=== PATIENT | female | born 1950 | race Caucasian/White ===

== ENCOUNTER 2017-08-08 10:50 | Inpatient (IN) | payer MEDICARE, BC ==
[2017-08-08] MEDS ORDERED: Cefepime(*) 2 GM in NS 0.9% 50 ML* 50 ML IVPB ONE (11:34)
[2017-08-08] MEDS ORDERED: NS 0.9% 1000 ML*IV.FLUID IV ONE (11:34)
[2017-08-08] MEDS ORDERED: Acetaminophen TAB* 325 MG PO ONE (12:19)
--- NOTE | 2017-08-08 12:19 | ED ---
Skin Complaint - HPI Summary HPI Summary: 67 female [facility] with complaints of "buttock pain" that began ~4 days ago and has since worsened. Patient states she had "the stomach flu" about 1 week ago and had diarrhea/vomiting however it has since resolved. She has been "stuck in bed" over the past couple of days because she was in so much pain from the infection on her buttock. Denies fever and recent vomiting. Admits to drainage from her buttock. States she has had decreased appetite however has been trying to drink fluids, being stuck in bed without help has made it difficult for her. States she is a dialysis patient and does it at home daily. Since she has not been feeling good she has decreased urinary output and is having lower abdominal pressure from not urinating in 2 days. States she also has not had a bowel movement in a few days. Denies any abdominal pain after urinating. No chest pain, SOB, headache. Admits to generalized weakness. Is a Type II diabetic and states she has been controlling it with diet, has never taken medications but was last told at PCP that she may need to start soon. HTN, no other cardiac disease. Has no taken any medication for her symptoms. Denies prolonged bed rest prior to patient's buttock pain and has never had a rash like this in the past. Denies known MRSA history and denies rash elsewhere. - History of Current Complaint Chief Complaint: EDRashSkinAbscess Time Seen by Provider: 08/08/17 11:28 Stated Complaint: PAIN NEAR WOUND SITE Hx Obtained From: Patient Onset/Duration: Started Days Ago, Still Present, Worse Since Skin Exposure Onset/Duration: Days Ago Timing: Constant, Lasting Days Onset Severity: Moderate Current Severity: Severe Pain Intensity: 9 Pain Scale Used: 0-10 Numeric Skin Location: Other: - buttock, left Character: Swelling, Redness, Raised, Painful Aggravating Symptom(s): Touch, Other: - movement Alleviating Symptom(s): Nothing Associated Signs & Symptoms: Nausea, Vomiting - resolved, Weakness, Rash, Drainage - Additional Pertinent History Primary Care Physician: [id number] - Allergy/Home Medications Allergies/Adverse Reactions: Allergies Allergy/AdvReac Type Severity Reaction Status Date / Time latex Allergy Rash Verified 08/08/17 12:29 Home Medications: Home Medications Acetaminophen [Acetaminophen Extra Strength] 500 - 1,000 mg PO DAILY PRN [History Confirmed 08/08/17] Carvedilol TAB* [Coreg TAB*] 6.25 mg PO BID 08/08/17 [History Confirmed 08/08/17 ] Cephalexin CAP* [Keflex CAP*] 1,000 mg PO Q12H PRN 08/08/17 [History Confirmed 08/08/17] Ciprofloxacin TAB* [Cipro 750 MG Tab*] 750 mg PO SEE INSTRUCTIONS PRN 08/08/17 [ History Confirmed 08/08/17] Furosemide TAB* [Lasix TAB*] 40 mg PO DAILY 08/08/17 [History Confirmed 08/08/17 ] Lanthanum CHEW TAB* [Fosrenol CHEW TAB*] 1,000 mg PO TID WITH MEALS 08/08/17 [ History Confirmed 08/08/17] Mupirocin 2% OINT* [Bactroban 2 % Oint*] 1 applic TOPICAL DAILY 08/08/17 [ History Confirmed 08/08/17] Patiromer Calcium Sorbitex [Veltassa] 8.4 gm PO DAILY PRN 08/08/17 [History Confirmed 08/08/17] Potassium Chlor TAB* [Klor Con ER TAB*] 20 meq PO DAILY 08/08/17 [History Confirmed 08/08/17] PMH/Surg Hx/FS Hx/Imm Hx Endocrine/Hematology History: Reports: Hx Diabetes - type II diet contolled , Hx Anemia - HGB AT 11 CURRENTLY Denies: Hx Sickle Cell Disease Cardiovascular History: Reports: Hx Hypertension Denies: Hx Valvular Heart Disease, Other Cardiovascular Problems/Disorders Respiratory History: Denies: Other Respiratory Problems/Disorders GI History: Reports: Hx Gastroesophageal Reflux Disease - ON MEDS,CONTROLLED Denies: Other GI Disorders History: Reports: Hx Chronic Renal Failure, Hx Dialysis Denies: Other Problems/Disorders Musculoskeletal History: Reports: Hx Arthritis - KNEES BILAT Denies: Other Musculoskeletal History Sensory History: Reports: Hx Cataracts - BILAT EYES, Hx Contacts or Glasses - GLASSES Denies: Hx Hearing Aid Opthamlomology History: Reports: Hx Cataracts - BILAT EYES, Hx Contacts or Glasses - GLASSES Neurological History: Denies: Other Neuro Impairments/Disorders Psychiatric History: Reports: Hx Anxiety, Hx Depression - R/T ESRD - Surgical History Surgery Procedure, Year, and Place: RT KNEE SCOPE, AGE 35, [facility]. FORMATION [facility] - [facility] [place] Hx Anesthesia Reactions: No - Immunization History Immunizations Up to Date: Yes Infectious Disease History: No Infectious Disease History: Denies: Hx of Known/Suspected MRSA, Traveled Outside the [place] in Last 30 Days - Family History Known Family History: Positive: Hypertension - Social History Alcohol Use: None Alcohol Amount: 2 BEERS/ YEAR Substance Use Type: Reports: None Smoking Status (MU): Never Smoked Tobacco Review of Systems Positive: Chills, Fatigue Cardiovascular: Negative Respiratory: Negative Positive: Vomiting - resolved , Diarrhea - resolved, Nausea Positive: see HPI, other - decreased frequency/obstructed Positive: Rash Positive: Weakness All Other Systems Reviewed And Are Negative: Yes Physical Exam Triage Information Reviewed: Yes Vital Signs On Initial Exam: Initial Vitals Temp Pulse Resp BP Pulse Ox 100 F 60 17 115/58 95 08/08/17 11:15 08/08/17 11:15 08/08/17 11:15 08/08/17 11:15 08/08/17 11:15 Vital Signs Reviewed: Yes Appearance: Positive: No Pain Distress, Well-Nourished, Ill-Appearing Skin: Positive: Warm, Skin Color Reflects Adequate Perfusion, Dry, Jaundiced, Pale, Erythema @ - decubitus ulcer x 2 noted on left buttock with surrounding erythematous, indurated, firm and non blanchable cellulitis. necrotic tissue in center of lower ulcer area measuring ~ 4cm. purulent scant amount of drainage, exquistely tender to touch, Other - decreased skin turgor, dry mucous membranes. Negative: Cold, Numb, Cyanosis @ Head/Face: Positive: Normal Head/Face Inspection ENT: Positive: Hearing grossly normal, Pharynx normal, TMs normal Neck: Positive: Supple, Nontender Respiratory/Lung Sounds: Positive: Clear to Auscultation, Breath Sounds Present , Rhonchi. Negative: Rales, Wheezes Cardiovascular: Positive: Normal, RRR, Pulses are Symmetrical in both Upper and Lower Extremities. Negative: Murmur, Rub Abdomen Description: Positive: Nontender - after urinated, prior to had suprapubic "pressure" and distended to palpation. Negative: CVA Tenderness (R) , CVA Tenderness (L), Guarding Bowel Sounds: Positive: Present Musculoskeletal: Positive: Normal, Strength/ROM Intact - diminshed strength however patient had to stay in "bermudez" position on side due to decubitus ulcer pain Neurological: Positive: Normal, Sensory/Motor Intact, Alert, Oriented to Person Place, Time, [place] Bundle Intact Distally - [place] Coma Scale Best Eye Response: 4 - Spontaneous Best Motor Response: 6 - Obeys Commands Best Verbal Response: 5 - Oriented Coma Scale Total: 15 Diagnostics - Vital Signs Vital Signs Temp Pulse Resp BP Pulse Ox 08/08/17 11:15 100 F 60 17 115/58 95 - Laboratory Result Diagrams: 08/08/17 12:37 08/08/17 12:37 Lab Statement: Any lab studies that have been ordered have been reviewed, and results considered in the medical decision making process. Re-Evaluation - Re-Evaluation First Eval Re-Evaluation Time: 12:30 Change: Unchanged - still awaiting IV access Second Eval Re-Evaluation Time: 13:00 Change: Unchanged - IV access obtained and labs obtained, meds and fluids started as BP and vitals were dropping Third Eval Re-Evaluation Time: 13:30 Change: Unchanged - BP responding to fluids, updated on lab results and current plan of action, patient's only complaint buttock pain, will wait for pressure to improve before pain meds. updated obtianing EKG due to sepsis admission and hypokalemia Fourth Eval Re-Evaluation Time: 14:00 Change: Worse - EKG shows inferior STEMI on EKG with no prvious history and multiple EKG changes from previous 10 years ago, Dr Dixon, Dr Webster and Dr Fischer / Dr Paulino consulted to take over care Fifth Eval Re-Evaluation Time: 14:30 Change: Worse - patient updated on plan and is aware of her conditions, has spoke to hospitalists and specialists Course/Dx - Course Course Of Treatment: patient was seen promptly upon arrival as concern for sepsis and sepsis protocol initiated as became hypotensive, low grade fever, signs of obvious infection, diabetic, decreased urinary output/obstruction. given tylenol for fever. labs, urinalysis, fluids and antibiotics ordered. nursing staff had trouble with initiating IV access. After 2 hours patient's IV access was obtained. Hospitalist, J Carlos NAJERA, was notified prior to patients lab results due to vitals worsening and PE of decubitus ulcer/generalized illness. Began on cefepime and vanco. given potassium orally. Patient had several abnormal labs including elevated WBC with left shift, hyperglycemia, dehydration , anemia, hypokalemia and urosepsis. CT abd/pelvis obtained to rule out necrotizing faciitis. Wound culture not obtained due to other critical finidngs during visit. Hospitalist was consulted again at 12:00pm, Dr Dixon and J Carlos NAJERA. EKG obtained due to hypokalemia and sepsis and showed significant ST changes inferior leads with several ischemic changes. Patient denied any chest pain or SOB without history. Consulted Dr Dixon, Dr Webster, Dr Fischer and Dr Paulino. Patien 'ts care was transferred to hospitalist and specialist team. Patient was later cath'd as vitals responded and improved after fluids however EKG did not improve. ICU admit. - Differential Diagnoses - Skin Complaint Differential Diagnoses: Abscess, Cellulitis, Other - sepsis, uro sepsis, UTI, STEMI, hyperglycemia, dehydration, hypokalemia - Diagnoses Provider Diagnoses: Hypokalemia, Sepsis, UTI (urinary tract infection), Decubitus ulcer, Cellulitis and abscess of buttock, Hyperglycemia, STEMI (ST elevation myocardial infarction), Dehydration - Physician Notifications Discussed Care Of Patient With: J Carlos Soliz SENIOR GEOLOGIST, Dr Webster, Dr Paulino, Dr Fischer Time Discussed With Above Provider: 12:00 Instructed by Provider To: Admit As Inpatient - Critical Care Time Critical Care Time: 30-74 min Discharge - Discharge Plan Condition: Stable Disposition: ADMITTED TO [facility]
[2017-08-08] MEDS ORDERED: Vancomycin(*) 1,000 MG VIAL IVPB SCH (13:00)
[2017-08-08 13:21] LABS: Hematocrit 33 % (35-47); Hemoglobin 10.9 g/dl (12.0-16.0); Mean Corpuscular HGB Conc 33 g/dl (31-36); Mean Corpuscular Hemoglobin 34 pg (27-31); Mean Corpuscular Volume 102 fL (80-97); Mean Platelet Volume 9 um3 (7.4-10.4); Platelet Count 543 10^3/ul (150-450); Red Blood Count 3.21 10^6/ul (4.0-5.4); Red Cell Distribution Width 15 % (10.5-15)
[2017-08-08 13:22] LABS: INR 1.17 (0.77-1.02)
[2017-08-08 13:23] LABS: EGFR Non-African American 6.1 (>60)
[2017-08-08 13:25] LABS: Urine Appearance Cloudy; Urine Blood 1+ (Negative); Urine Color Yellow; Urine Ketones Negative (Negative); Urine Protein 2+(100 mg/dL) (Negative); Urine Specific Gravity 1.037 (1.010-1.030); Urine Urobilinogen Negative (Negative)
[2017-08-08] MEDS ORDERED: Vancomycin(*) 1,250 MG IV x ONCE IVPB ONE ×2 (13:30)
[2017-08-08] MEDS ORDERED: NS 0.9% 1000 ML* 1,000 ML IV ONE (13:50)
[2017-08-08] MEDS ORDERED: Potassium Chlor TAB* 20 MEQ TAB.ER PO ONE (13:50)
[2017-08-08] MEDS ORDERED: Clindamycin 600 MG IVPREMIX(* 600 MG/50 ML SDV IV ONE ×2 (14:02→15:00)
[2017-08-08 14:04] LABS: ABS Basophils 0.1 10^3/ul (0-0.2); ABS Eosinophils 0.1 10^3/ul (0-0.6); ABS Lymphocytes 1.3 10^3/ul (1.0-4.8); ABS Monocytes 1.3 10^3/ul (0-0.8); ABS Neutrophils 20.2 10^3/ul (1.5-7.7); ABS Nucleated RBC 0 10^3/ul; Eosinophil % 0.4 % (0-6); Lymphocyte % 5.8 % (25-47); Nucleated Red Blood Cells % 0
[2017-08-08] MEDS ORDERED: Dextrose 50% Syringe 50 ML* 25 GM/50 ML SYRINGE IV PUSH PRN (15:56)
[2017-08-08] MEDS ORDERED: Cefepime 2 GM in Dextrose(*) 2 GM/50 ML BAG IV SCH (16:00)
[2017-08-08] MEDS ORDERED: Aspirin Low Dose CHEW TAB* 81 MG PO ONE (16:00)
--- NOTE | 2017-08-08 16:09 | RAD ---
INDICATION: Sepsis. Abscess. Free air. COMPARISON: CT abdomen pelvis April 02, 2012 TECHNIQUE: Noncontrast axial source images were acquired from the level hemidiaphragms to the symphysis pubis. As the examination was ordered without oral or intravenous contrast. There are inherent limitations in evaluating both the solid viscera and bowel. Lung bases: The lung bases are clear. Liver: There is hepatomegaly with hepatic steatosis. Noncontrast imaging shows no evidence of a hepatic mass or ductal dilatation. Gallbladder: There are no calcified gallstones. There is no evidence of wall thickening or pericholecystic fluid.. Spleen: The spleen is normal in size. The noncontrast CT appearance is normal. Pancreas: Noncontrast imaging shows no pancreatic mass or ductal dilitation. Adrenal glands: No masses are identified. Kidneys/Bladder: There is no evidence of nephrolithiasis or CT evidence of hydronephrosis. Noncontrast imaging shows no evidence of a renal mass. Both kidneys are mildly atrophic The bladder is unremarkable.. Adenopathy: There is no evidence of intraperitoneal or retroperitoneal adenopathy. Evaluation is limited without oral contrast. Fluid collections: There is moderate free fluid which may be related to peritoneal dialysis. There is a small amount of mild diffuse mesenteric edema Vessels: There are atherosclerotic changes of the aorta and iliac vessels. There is no focal aneurysm. The IVC appears normal Pelvic organs: The uterus and adnexa appear normal GI tract: Evaluation of the bowel is limited without oral contrast. The upper GI tract is also normal. There is scattered diverticula throughout the colon Soft tissues: No soft tissue abnormalities of the extraperitoneal abdomen or pelvis are identified. Osseous structures: There are no acute osseous findings. Other: There is diffuse increased density in the subcutaneous fat of the right gluteal region consistent with diffuse cellulitic change/phlegmonous change. The largest coalescent area measures approximately 4.0 x 4.7 cm. These are not currently organized into a unilocular area with central liquefaction. There is no evidence of soft tissue emphysema. IMPRESSION: 1. Limited noncontrast imaging was ordered. 2. Hepatomegaly with hepatic steatosis. 3. Free fluid likely related to peritoneal dialysate. 4. Scattered diverticula. No convincing CT evidence of acute diverticulitis. 5. Cellulitic/phlegmonous change right gluteal region.
[2017-08-08] MEDS ORDERED: fentaNYL* 50 MCG/ML 2 ML VIAL (100 MCG VIAL) ONE (16:21)
[2017-08-08] MEDS ORDERED: Heparin(*) 1000 UNIT/ML 10 ML VIAL CATH LAB IV ONE (16:21)
[2017-08-08] MEDS ORDERED: nitroGLYCERIN DRIP* 25,000 MCG/250 ML BTL ONE (16:21)
[2017-08-08] MEDS ORDERED: Heparin 2 UNITS/ML IVPREMIX* 2,000 ML IV ONE (16:21)
[2017-08-08] MEDS ORDERED: Midazolam* 1 MG/ML 10 ML VIAL (10 MG) ONE (16:21)
[2017-08-08] MEDS ORDERED: Iodixanol* (CONTRAST) 320 MG/ML 100 ML SDV ONE (16:22)
[2017-08-08] MEDS ORDERED: Lidocaine 1% INJ* 10 MG/ML 30 ML SDV ONE (16:22)
[2017-08-08] MEDS ORDERED: Zosyn per Pharmacy* NOTE FOLLOW UP SCH (17:00)
--- NOTE | 2017-08-08 17:24 | CONSULT ---
Consult Consult: Ms. English presented to the ED with a concern for sepsis from a bad decubitus ulcer and surrounding cellulitis. She dropped her pressure a bit before IV could be established (she is on a beta eben) but responded well to IV NS. As she was being admitted, an ECG was obtained which showed an inferior STEMI with reciprocal changes. She denied any chest pain or SOB. She is diet controlled diabetic and has never been on meds or diagnosed with any neuropathy. I spoke with Dr. Fischer who reviewed the ECG and recommended consulting Dr. Paulino. Sr. Paulino reviewed the ECG and came to the department to evaluate Ms. English. He decided to take her to the technical laboratory asst. She had responded well to the fluids and her ECG had not improved much. Her diagnoses are STEMI, Sepsis, and Cellulitis
[2017-08-08] MEDS ORDERED: Eptifibatide IV (Load dose)(*) 2 MG/ML 10 ml VIAL ONE (17:27)
[2017-08-08] MEDS ORDERED: Eptifibatide (*) 0 ML ONE (17:27)
[2017-08-08] MEDS ORDERED: Ticagrelor* 90 MG TAB PO ONE (17:32)
[2017-08-08] MEDS ORDERED: Nitroglycerin TAB 0.4 MG* 0.4 MG TAB SL PRN (17:57)
[2017-08-08] MEDS ORDERED: Insulin LISPRO* 1 UNITS UNIT SUBCUT SCH (18:00)
[2017-08-08] MEDS ORDERED: Vancomycin - DIALYSIS DOSING* NOTE FOLLOW UP SCH (18:00)
--- NOTE | 2017-08-08 18:41 | CONSULT ---
Consult Consult: Consultation Note -- Critical Care Requesting Physician: J Carlos Evans NP Reason for consult: septic shock, STEMI inferior wall, ESRD Limitations in history/physical: none Date of consult: 08/08/2017 HPI: 67y F w/pmhx of DM, Anemia, HTN, GERD, ESRD on PD; comes to ER with friend for eval of right buttock wound. Patient initially had nausea/vomiting approximately 11 days back, which got better, suspected GI illness. Then 9 days back her buttock started to hurt and a small lesion appears, no trauma noted at site. She subsequently developed a second small nodular lesion next to it. Diarrhea occurred 3-4x the following day. No fever/chills. No chest pain/sob. Poor po intake during episodes of nausea/vom and diarrhea. There was drainage for the past week from the buttock lesions and increasing pain and tenderness. She comes to the ER for eval of buttocks. In ER, she was being worked up for wound. EKG done also demonstrating acute ST elevations inferiorly with new inferior wall motion defects on stat ECHO. No sob/chest pain/dizziness during this evaluation. In ER, tmax 100, BP 81/30 lowest, started on sepsis protocol and given 2 L bolus NS. BP improved to low 100s then. Given cefepime/clindamycin/vanco for buttock infection. CT abd/pelvis demonstrated right gluteal area cellulitus/phelgmon, but no necrotizing fasciitis or abscess collection. Cardiology called for STEMI changes, ECHO and repeat EKG done as above. Decision to take to cardiac cathode ray tube assembler emergently. She had a critical mid-RCA lesion with PCI x1 to midRCA. Post cathode ray tube assembler she is in ICU, awake/alert, feeling better. Last BP 90s now, MAPS low to mid 60s, HR 80-90s sinus rhythm. She feels better, no sob/cp. Pain better in buttocks. Total of 2.5L NS in ER, and additional 500cc NC in cathode ray tube assembler. ROS: negative except for pertinent positives mentioned above. PMHx: DM (diet controlled), Anemia, HTN, GERD, ESRD on PD PSHx: right knee scope, AV fistula Family History: HTN Social History: Alcohol-minimal, Smoking-none, Drug use-none; Job- retired nurse Allergies: NKDA Home Medications: Folic Acid/Vit B Complex and C [Nephro-Coco Tablet] 1 tab PO DAILY 10/23/15 [ History Confirmed 08/08/17] Aspirin EC Low Dose* [Ecotrin EC Low Dose 81 MG*] 81 mg PO DAILY 02/20/16 [ History Confirmed 08/08/17] Omeprazole CAP* [Prilosec CAP* 20 MG] 20 mg PO BID 02/20/16 [History Confirmed 08/08/17] Sevelamer TAB* [Renvela TAB*] 1,600 mg PO TID WITH MEALS 02/20/16 [History Confirmed 08/08/17] Acetaminophen [Acetaminophen Extra Strength] 500 - 1,000 mg PO DAILY PRN [History Confirmed 08/08/17] Carvedilol TAB* [Coreg TAB*] 6.25 mg PO BID 08/08/17 [History Confirmed 08/08/17 ] Cephalexin CAP* [Keflex CAP*] 1,000 mg PO Q12H PRN 08/08/17 [History Confirmed 08/08/17] Ciprofloxacin TAB* [Cipro 750 MG Tab*] 750 mg PO SEE INSTRUCTIONS PRN 08/08/17 [ History Confirmed 08/08/17] Furosemide TAB* [Lasix TAB*] 40 mg PO DAILY 08/08/17 [History Confirmed 08/08/17 ] Lanthanum CHEW TAB* [Fosrenol CHEW TAB*] 1,000 mg PO TID WITH MEALS 08/08/17 [ History Confirmed 08/08/17] Mupirocin 2% OINT* [Bactroban 2 % Oint*] 1 applic TOPICAL DAILY 08/08/17 [ History Confirmed 08/08/17] Patiromer Calcium Sorbitex [Veltassa] 8.4 gm PO DAILY PRN 08/08/17 [History Confirmed 08/08/17] Potassium Chlor TAB* [Klor Con ER TAB*] 20 meq PO DAILY 08/08/17 [History Confirmed 08/08/17] Tele: NSR Vitals: Vital Signs Temp 97.5 F 08/08/17 18:28 Pulse 82 08/08/17 18:28 Resp 25 08/08/17 18:28 BP 85/48 08/08/17 18:28 Pulse Ox 94 08/08/17 18:28 Intake & Output 08/07/17 08/08/17 08/08/17 18:59 06:59 18:59 Intake Total 2350 Balance 2350 Weight 192 lb Intake: IV Fluids 2350 O2/Vent: RA Infusions: heplock Current Medications: Acetaminophen (Tylenol Tab*) 650 mg PO Q4H PRN PRN Reason: FEVER/PAIN Aspirin (Aspirin Ec Low Dose*) 81 mg PO DAILY [facility] Aspirin (Aspirin Low Dose Tab*) 81 mg PO DAILY [facility] Atorvastatin Calcium (Lipitor*) 80 mg PO 1700 [facility] [place] Dextrose (D50w Syringe 50 Ml*) 12.5 gm IV PUSH .FOR FS < 60 - SS PRN PRN Reason: FS < 60 Heparin Sodium (Porcine) (Heparin Vial(*)) 5,000 units SUBCUT Q8HR [facility] [place] Sodium Chloride (Ns 0.9% 1000 Ml*) 1,000 mls @ 75 mls/hr IV PER RATE [facility] [place] Vancomycin HCl 1,000 mg/ (Sodium Chloride) 250 mls @ 166.667 mls/hr IVPB DAILY PRN; Protocol PRN Reason: RANDOM LEVEL <20 Piperacillin Sod/Tazobactam (Sod 3.375 gm/ Sodium Chloride) 100 mls @ 200 mls/ hr IVPB ONCE ONE Stop: 08/09/17 08:29 Insulin Human Lispro (Humalog*) 0 units SUBCUT Q6HR [facility] PRN Reason: Protocol Lanthanum Carbonate (Fosrenol Chew Tab*) 1,000 mg PO TID WITH MEALS [facility] Nitroglycerin (Nitroglycerin Tab 0.4 Mg*) 0.4 mg SL Q5M PRN PRN Reason: ANGINA Omeprazole (Prilosec Cap*) 20 mg PO BID [facility] [place] Ondansetron HCl (Zofran Inj*) 4 mg IV Q6H PRN PRN Reason: NAUSEA Pharmacy Consult (Zosyn Per Pharmacy*) 1 note FOLLOW UP .ZOSYN PER PHARMACY [facility] Pharmacy Consult (Vancomycin - Dialysis Dosing*) 1 note FOLLOW UP . [facility] Pharmacy Consult (Vancomycin Random Level*) 1 note FOLLOW UP DAILY@0600 [facility] Potassium Chloride (Klor Con Er Tab*) 20 meq PO DAILY [facility] Sevelamer Carbonate (Renvela Tab*) 1,600 mg PO TID WITH MEALS [facility] Ticagrelor (Brilinta*) 90 mg PO BID [facility] Physical Exam: General: awake, alert, no distress, no diaphoresis Head: normocephalic, atraumatic HEENT: no pallor, no icterus, moist mucous membranes Neck: soft, supple, no jvd, no stridor CVS: normal rate, regular, no murmur Resp: bilateral air entry, no rhales, no wheeze, no rhonchi, no acc muscle use Abdomen: soft, nontender, nondistended, BS+; left abd PD catheter+; Right buttock erythematous, indurated and tense, 1 escar site not open, 2nd open wound with active drainage of pus+, tender+ Ext: pulses+, warm, no edema Skin: intact, no breakdown, no dryness Neuro: awake, alert, orientedx3, moving all extremities, no gross focal deficit Labs: Laboratory Results - last 24 hr 08/08/17 08/08/17 08/08/17 12:37 12:37 12:37 WBC 23.0 H RBC 3.21 L Hgb 10.9 L Hct 33 L MCV 102 H MCH 34 H MCHC 33 RDW 15 Plt Count 543 H MPV 9 Neut % (Auto) 87.9 H Lymph % (Auto) 5.8 L [place] % (Auto) 5.7 Eos % (Auto) 0.4 Baso % (Auto) 0.2 Absolute Neuts (auto) 20.2 H Absolute Lymphs (auto) 1.3 Absolute Monos (auto) 1.3 H Absolute Eos (auto) 0.1 Absolute Basos (auto) 0.1 Absolute Nucleated RBC 0 Nucleated RBC % 0 INR (Anticoag Therapy) 1.17 H APTT 30.3 Sodium 126 L Potassium 2.9 L Chloride 86 L Carbon Dioxide 23 Anion Gap 17 H BUN 54 H Creatinine 6.80 H Est GFR ( Amer) 7.8 Est GFR (Non-Af Amer) 6.1 BUN/Creatinine Ratio 7.9 L Glucose 362 H Lactic Acid Calcium 9.1 Total Bilirubin 0.50 AST 22 ALT 10 Alkaline Phosphatase 167 H Troponin I 0.12 H* Total Protein 6.9 Albumin 2.5 L Globulin 4.4 H Albumin/Globulin Ratio 0.6 L Triglycerides 245 Cholesterol 101 Urine Color Urine Appearance Urine pH Ur Specific [place] Urine Protein Urine Ketones Urine Blood Urine Nitrate Urine Bilirubin Urine Urobilinogen Ur Leukocyte Esterase Urine WBC (Auto) Urine RBC (Auto) Ur Squamous Epith Cells Urine Bacteria Urine Glucose 08/08/17 08/08/1708/08/18 12:37 12:45 15:54 WBC RBC Hgb Hct MCV MCH MCHC RDW Plt Count MPV Neut % (Auto) Lymph % (Auto) [place] % (Auto) Eos % (Auto) Baso % (Auto) Absolute Neuts (auto) Absolute Lymphs (auto) Absolute Monos (auto) Absolute Eos (auto) Absolute Basos (auto) Absolute Nucleated RBC Nucleated RBC % INR (Anticoag Therapy) APTT Sodium Potassium Chloride Carbon Dioxide Anion Gap BUN Creatinine Est GFR ( Amer) Est GFR (Non-Af Amer) BUN/Creatinine Ratio Glucose Lactic Acid 4.9 H* 2.8 H* Calcium Total Bilirubin AST ALT Alkaline Phosphatase Troponin I Total Protein Albumin Globulin Albumin/Globulin Ratio Triglycerides Cholesterol Urine Color Yellow Urine Appearance Cloudy Urine pH 5.0 Ur Specific [place] 1.037 H Urine Protein 2+(100 mg/dl) H Urine Ketones Negative Urine Blood 1+ H Urine Nitrate Negative Urine Bilirubin Negative Urine Urobilinogen Negative Ur Leukocyte Esterase 2+ H Urine WBC (Auto) 3+(>20/hpf) H Urine RBC (Auto) 3+(>10/hpf) H Ur Squamous Epith Cells Present H Urine Bacteria Absent Urine Glucose 3+(>=500 mg/dl) H 08/08/17 15:54 WBC RBC Hgb Hct MCV MCH MCHC RDW Plt Count MPV Neut % (Auto) Lymph % (Auto) [place] % (Auto) Eos % (Auto) Baso % (Auto) Absolute Neuts (auto) Absolute Lymphs (auto) Absolute Monos (auto) Absolute Eos (auto) Absolute Basos (auto) Absolute Nucleated RBC Nucleated RBC % INR (Anticoag Therapy) APTT Sodium Potassium Chloride Carbon Dioxide Anion Gap BUN Creatinine Est GFR ( Amer) Est GFR (Non-Af Amer) BUN/Creatinine Ratio Glucose Lactic Acid Calcium Total Bilirubin AST ALT Alkaline Phosphatase Troponin I 0.10 H* Total Protein Albumin Globulin Albumin/Globulin Ratio Triglycerides Cholesterol Urine Color Urine Appearance Urine pH Ur Specific [place] Urine Protein Urine Ketones Urine Blood Urine Nitrate Urine Bilirubin Urine Urobilinogen Ur Leukocyte Esterase Urine WBC (Auto) Urine RBC (Auto) Ur Squamous Epith Cells Urine Bacteria Urine Glucose Imaging: CT abd/pelvis 08/08 right buttock cellulitus/phelgmon+ EKG 08/08 NSR, inf III/AvF ST elevation with some Qwaves+ Assessment: 67y F w/pmhx of DM, Anemia, HTN, GERD, ESRD on PD; comes to ER with friend for eval of right buttock wound. Patient initially had nausea/ vomiting approximately 11 days back, which got better, suspected GI illness. Then 9 days back her buttock started to hurt and a small lesion appears, no trauma noted at site. She subsequently developed a second small nodular lesion next to it. Diarrhea occurred 3-4x the following day. Poor po intake during episodes of nausea/vom and diarrhea. There was drainage for the past week from the buttock lesions and increasing pain and tenderness. In ER started on sepsis protocol. EKG showed STEMI Inf wall, s/p Cath with PCI to midRCA x1. CT abd/ pelvis with phlegmon of right buttock. -Septic Shock -Right Buttock Cellulitus/phlegmon -Inferior Wall STEMI of RCA, s/p PCI x1 -ESRD on PD Plan: Neuro- stable. delirium prec. CVS- septic shock, repeat LA improved after IVF bolus. clinically not overloaded. she is a PD patient. will give additional 1 L NS at 75cc/hour only. IV abx zosyn/vanco. Trend LA still. Current BP 90s, MAPs mid 60s, warm and perfusing. Will start naomie if BP still less than 80s. blood and wound cultures. PD probably tomorrow. cont asa/brillinta/statin for Coronary stent. f/u ECHO in AM. Cont IVF. hold BB for today given concurrent sepsis/shock. Resp- on RA, no distress. ID- tmax 100, wbc 23k. Right buttock deep tissue infection with escar and 2nd open lesion with drainage. send wound culture of drainage. blood cx sent. given clinda/cefepime/vanco. Will change to zosyn/vancomycin for gram neg/anaerobe coverage. LA coming down. GI- abd is nontender. CT abd/pelvis otherwise okay from intrabd pathology. PD cathetor in place. Renal- ESRD on PD. no dialysis tonight, plan tomorrow. s/p 2.5L NS, cont NS 75cc /hour for 1 more liter only. given K IV in ER. no dexter. Heme- anemia, hg stable. plt okay. s/p DAPT for CAD/STEMI. Endo- fingersticks achs. Musculsk- pressure ulcer prophlaxis. no pressure on right buttock. Wounds- wound care to right buttock, obtain wound drainage culture. surgical consultation for possible debridement if needed in coming days. IV abx. Nutrition- full liquid diet for now. DVT prophylaxis: scds, heparin sq GI prophylaxis: omeprazole po Central Line: no Arterial Line: no Dexter Cathetor: no Disposition: ICU Code Status: full code Total Critical Care time is 60 minutes, excluding procedures/teaching Bora Yung MD Animation Director (Electronically Signed)
[2017-08-08] MEDS: Sevelamer TAB* 800 MG PO SCH (19:36)
[2017-08-08] MEDS: Lanthanum CHEW TAB* 500 MG PO SCH (19:36)
[2017-08-08] MEDS: Omeprazole CAP* 20 MG PO SCH (20:44)
[2017-08-08] MEDS: Ticagrelor* 90 MG TAB PO SCH (20:44)
[2017-08-08] MEDS ORDERED: Carvedilol TAB* 6.25 MG PO SCH (21:00)
[2017-08-08] MEDS ORDERED: Heparin VIAL(*) 5000 UNITS/ML VIAL (FIVE THOUSAND) SUBCUT SCH (22:00)
--- NOTE | 2017-08-08 22:51 | HP ---
CC: Griselda Beal NP; Dr. Ralph; Dr. Paulino; Dr. Yung; Dr. Cardenas * HISTORY AND PHYSICAL: DATE OF ADMISSION: 08/08/17 PRIMARY CARE PROVIDER: Griselda Beal NP CONSULTING GUM MIXER: Dr. Ralph. CONSULTING KOHINOOR OPERATOR: Dr. Paulino. CONSULTING DISCHARGE DOOR OPERATOR: Dr. Yung. CONSULTING SURGEON: Dr. Cardenas. ATTENDING PHYSICIAN WHILE IN THE HOSPITAL: Ramo Dixon MD * (report dictated by J Carlos Evans NP). CHIEF COMPLAINT: 1. Right buttock pain. 2. Not feeling well. HISTORY OF PRESENT ILLNESS: Mrs. English is a 67-year-old female patient, she is diabetic, she has a history of hypertension, GERD, end-stage renal disease, and vertigo. She came into our ER today with initial complaint that for the last week she just has not been feeling well, she has been feeling fatigued, weak, tired, no appetite. She has had intermittent nausea, dry heaves, no chest pain or shortness of breath or abdominal pain. She states she has been doing her PD , taking her medications as prescribed. She has been having uncontrolled retching, and she has also noticed and the reason she actually came in, in addition to her not feeling well is she noticed that she had a wound to her right buttock, her friend noticed it, they had been putting bacitracin on it for the last 3 to 4 days, but it has been getting progressively worse, more painful, more swollen, more hot. She has been having chills, still is not feeling well and she came into the ED today. She denies any cloudy dialysate fluid, denies any pain around the catheter, there has been discharge from this wound. She denies any abdominal pain. She did admit to having some retching, she had some diarrhea yesterday as well. Despite all this, she has been taking her diuretics, doing her PD as prescribed, but again not feeling well. She was concerned, came in to our emergency department today, was evaluated, it appeared that she had significant buttock wound with infectious cellulitis. She appeared to be septic. In addition to this, also EKG was obtained during her course and was found to have STEMI, so we were asked to evaluate for admission. PAST MEDICAL HISTORY: Significant for: 1. End-stage renal disease. 2. Diabetes. 3. Vertigo. 4. Hypertension. 5. GERD. PAST SURGICAL HISTORY: The patient has: 1. PD dialysis catheter placement. 2. AV fistula. 3. She has had knee arthroscopy. HOME MEDICATIONS: According to the list provided: 1. Veltassa 8.4 g p.o. daily as needed. 2. Potassium chloride 20 mEq p.o. daily. 3. [place] chew 1000 mg t.i.d. with meals. 4. Lasix 40 mg daily. 5. Cipro 75 mg p.o. as instructed. 6. Keflex 1000 mg p.o. every 12 hours as needed. 7. Bactroban 1 application topically daily. 8. Tylenol Extra Strength 1 to 2 tablets daily as needed. 9. Prilosec 20 mg p.o. b.i.d. 10. Nephro-Coco 1 tablet p.o. daily. 11. Carvedilol 6.25 mg p.o. b.i.d. 12. Aspirin 81 mg a day. 13. Renvela 1600 mg p.o. t.i.d. with meals. ALLERGIES TO MEDICATIONS: Include none, but she is allergic to LATEX. FAMILY HISTORY: Mother had a history of anemia and father had history of AFib. SOCIAL HISTORY: She does not smoke, she does not drink. She does not have a surrogate decision maker at this point. REVIEW OF SYSTEMS: There is documented fever here. She admits to losing about 15 pounds over the last 2 weeks and a half. She denies any chest pain, no orthopnea, no nocturnal dyspnea. There was no abdominal pain. She did admit to having some nausea with vomiting. There is no dysuria. No frequency. No seizure. No loss of consciousness, no pruritus. There is a skin ulceration to her right buttock. Review of 14 systems completed, all others negative. PHYSICAL EXAMINATION GENERAL: At this time, Ms. English is a 67-year-old female patient. She is chronically ill appearing. She does not appear to be in any acute distress. VITAL SIGNS: Blood pressure 109/48, pulse 96, respirations 17, O2 sat 98%. Temperature initially was 100, it is now 98.4. HEENT: Head is atraumatic. Eyes: Sclerae anicteric. Throat: Oral mucosa appears to be dry. No oropharyngeal erythema. NECK: Supple. LUNGS: Clear to auscultation. No wheezes, rales or rhonchi. HEART: Sounds S1, S2. Regular rate and rhythm. No murmurs, rubs, or gallops. ABDOMEN: Soft, flat, nontender. PD catheter was in situ. There was no erythema, drainage or redness around the catheter. EXTREMITIES: Pulses 2+ throughout. She is moving all 4 extremities. NEUROLOGIC: She is awake, alert, and oriented x3. No gross focal deficits. SKIN: She has an area of an eschar necrotic tissue to her right buttock, which measured about 7 cm x 7 cm. She has erythema extending from her buttocks down near her groin, which is painful, red, swollen to touch. There was no drainage noted. Otherwise, skin is intact. DIAGNOSTIC STUDIES/LAB DATA: Labs reveal a WBC 23.0, RBC of 3.21, hemoglobin 10.9, hematocrit of 33, platelet count of 545,000. The INR was 1.17, PTT of 30. Sodium 126, potassium 2.9, chloride 86, bicarb of 23, BUN 54, creatinine 6.80, glucose 362, lactic 4.9, calcium 9.1, total bili 0.5. AST 22, ALT 10, alk phos 167. Troponin 0.12. Albumin of 2.5. Urine showed high specific gravity, 2+ protein, 1+ blood, 2+ leukocyte esterase, 2+ WBC, 2+ RBC, 3+ glucose. She had an abdomen and pelvis CT obtained, limited non-contrasted imaging, which showed hepatomegaly with hepatic steatosis, free flow likely related to peritoneal dialysate, scattered diverticula, no convincing CT evidence of acute diverticulitis, cellulitic phlegmonous change in the right gluteal region. She had an EKG obtained, additional one was obtained at 2:10. The patient again , had no cardiac symptoms, but it did show ST elevations in leads 3 and aVF concerning for an inferior wall TX. She had ST depression in V2 and V3. She had a repeat EKG just done moments ago, again which showed ST depression now in 3 and AVF and depression in 1 and aVL. Old medical records were reviewed. ASSESSMENT AND PLAN: Ms. English is a 67-year-old female patient, coming into the ED today, again initially complaining of just not feeling well over the last week, having some retching with some nausea. In addition to this, also complaining of pain in the right buttock. On evaluation in the ED, she was noted to be septic and during the course of the workup, was found to have a ST elevation myocardial infarction. She will be admitted under inpatient status in ICU for: 1. Sepsis as evidenced by she has a white count of 23,000. Initially when she came in, she was febrile. She also has a lactic of 4.9 and my plan at this point, I gave her 2 L of fluid. Blood cultures were sent. She was given vanco , cefepime, and clindamycin. I did obtain a CT of the abdomen and pelvis, which just showed cellulitic and phlegmonous changes. I suspect the source is from the right gluteal area. I have a call placed out to Dr. Cardenas, our surgeon nurse consultant, because she may need some localized debridement as there is an area of eschar tissue and localized wound care, but at this point, there is no abscess or free air that would require more emergent debridement. I also have a call placed out to Dr. Yung as well given her severe sepsis. I am repeating her lactic and we will continue to follow. 2. ST elevation myocardial infarction. Dr. Paulino came down to evaluate the patient. She was not taken emergently to the cath lab nurse because there was concern about the extent of her cellulitis and there was concern if there was any necrotizing fasciitis, this may change his care, and again that may have certainly taken precedence over the ST elevation myocardial infarction or in conjunction and there is a question if there was free air near the gluteal region, there will be a question if we will be able to care for her here. Fortunately, the CT came back negative. Dr. Paulino repeated the EKG. She has been remaining chest pain free the whole time. She has been loaded with aspirin. Heparin is being addressed by Dr. Paulino and his team. She is on a beta eben already. Plan is for her to go to catheterization today, most likely bare metal stent, but further recommendations and management will be deferred to Dr. Paulino. 3. End-stage renal disease with PD. I did touch base with Dr. Ralph. He will be following the patient. 4. Hypokalemia. We have ordered replacement here in the ED. 5. Diabetes. Lispro sliding scale has been ordered. She is n.p.o. currently, so she will get every 6 hours fingersticks. 6. Hypertension. Just going to continue the beta eben now in the setting of the ST elevation myocardial infarction. Hold parameters. 7. Code status. Full code. 8. Fluids, electrolytes, nutrition. Again n.p.o. She will have normal saline at 75 an hour. She got 2 L already. 9. Gastroesophageal reflux disease. Continue PPI therapy. TIME SPENT: Time spent on the admission, which was critical care time, was approximately 90 minutes, greater than half the time was spent [id number] with the patient obtaining my history and physical, other half of the time spent going over the plan of care with the patient and implementing plan of care. I did discuss plan of care with my attending, Dr. Dixon, he is in agreement. J CARLOS EVANS NP [id number]/CPS #: [id number] DAVID
--- NOTE | 2017-08-08 23:25 | CONS ---
CC: MYCHAL Hammer; Dr. Ralph; Dr. Jeffery Paulino * INTERVENTIONAL CARDIOLOGY CONSULT NOTE: DATE OF CONSULT: 08/08/17 PRIMARY CARE PROVIDER: MYCHAL Hammer NURSE MIDWIFE: Dr. Ralph. REASON FOR CONSULT: A 67-year-old woman with end-stage renal disease presenting to the ER with a buttock wound with cellulitis, incidental EKG revealed inferior ST elevation, Interventional Cardiology was consulted. She has no previous history of heart disease, she is a type 2 diabetic, is on peritoneal dialysis. She has no history of chest pain, heart failure symptoms, palpitations. She had a negative echo in February 2016, which revealed LVH and normal EF of 55% to 60%. Over the past week, she has had viral syndrome with nausea and anorexia, weakness. Four days ago, a friend noticed that she had a wound on her buttocks, which has progressively worsened, has become very painful. Today, she came to the ER because of it. While in the ER, as a part of her admission studies, EKG was obtained and showed inferior ST elevation with reciprocal ST depression. The patient is completely chest pain free, has not had dyspnea, diaphoresis, or any other ischemic symptoms. She denies fever or shaking chills, did meet sepsis criteria in the ER, attributed to her buttock wound. PAST MEDICAL HISTORY: CKD, stage 5, on peritoneal dialysis, she has an AV fistula in the right arm; diabetes, type 2; obesity. MEDICATIONS: Prehospital medications: 1. Renvela. 2. Potassium 20 mEq daily. 3. Veltassa. 4. Prilosec 20 b.i.d. 5. Bactroban. 6. Fosrenol. 7. Lasix 40 mg daily. 8. Folic acid. 9. Carvedilol 6.25 b.i.d. 10. Aspirin 81 mg daily. ALLERGIES: LATEX. FAMILY HISTORY: Noncontributory. 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 She is a remote smoker. REVIEW OF SYSTEMS: General: She is generally active, except for the past week when she has had a viral syndrome. She has no history of wounds. [employer] LO[employer] MECH[employer]IC: No history of TIA or CVA. GI: No peptid ulcer disease or bleeding, tolerates aspirin 81 mg daily. Pulmonary: No hemoptysis or cough. Endocrine: Positive for diabetes. Circulatory: No claudication. Remainder all negative. PHYSICAL EXAM: In the ER, she was initially hypotensive, responded to volume. Her initial BP 115/58, heart rate in the 60s, temp 100. Lungs clear without rales or wheezes. Neck: JVP and carotids normal, no bruits. HEENT: Unremarkable without xanthelasma. Sclerae, no injection or jaundice. EOMs normal. Cranial nerves grossly intact. Cardiac Exam: Chest wall not tender, normal heart sounds. Regular rhythm, rare ectopy. No murmur and no gallop. Abdomen is obese and nontender, she has a PD catheter. She has bowel sounds, no rebound. I cannot hear a bruit. The right arm has an AV fistula, I cannot palpate a right radial pulse. Her left radial pulse is very small in volume and size, subsequently it was ultrasounded at less than 2 mm. Femorals 2+, no bruits. Pedals are palpable. She has no cyanosis, clubbing, or edema. DIAGNOSTIC STUDIES/LAB DATA: White count high at 23,000 with hemoglobin 10.9, hematocrit 33, platelet count 543,000. Sodium 126, potassium low at 2.9 pre- replacement in the ER, bicarb 23, anion gap 17, BUN 54, creatinine 6.8. Initial lactic acid 4.9, down to 2.8 with hydration. Alkaline phosphatase 167. First troponin 0.12 with a repeat of 0.1. Albumin low at 2.5. Lipids pending. EKG at 1410 hours shows sinus rhythm [address] elevation, with reciprocal ST depression in I, aVL, V1 through V3. Abdominal and pelvic CT showed no air. Echo: Preliminary report revealed subtle inferolateral wall motion abnormality with preserved ejection fraction. IMPRESSION AND PLAN: Acute inferior wall ST elevation infarct. Interestingly, she is asymptomatic, presented for a totally different problem, this is an incidental finding. Due to lack of symptoms, and significant comorbidity, DBT was unavoidably delayed by need for complete evaluation of her infectious process. Repeat EKG confirmed it, she has a wall motion abnormality, she has a very small troponin rise. She has extensive cellulitis on her buttocks, may need surgical debridement. For that reason, if she needs revascularization, we will likely use a bare-metal stent. I reviewed with her the procedure of cath, revascularization. Thanks for the consult, I will follow with you as needed. [id number]/[facility] #: [id number] DAVID
[2017-08-08] MEDS: Insulin LISPRO* 1 UNITS UNIT SUBCUT SCH (23:41)
[2017-08-09 03:44] LABS: Hematocrit 28 % (35-47); Hemoglobin 9.2 g/dl (12.0-16.0); Mean Corpuscular HGB Conc 33 g/dl (31-36); Mean Corpuscular Hemoglobin 33 pg (27-31); Mean Corpuscular Volume 102 fL (80-97); Mean Platelet Volume 8 um3 (7.4-10.4); Platelet Count 463 10^3/ul (150-450); Red Blood Count 2.77 10^6/ul (4.0-5.4); Red Cell Distribution Width 15 % (10.5-15)
[2017-08-09 03:53] LABS: INR 1.21 (0.77-1.02)
[2017-08-09 03:58] LABS: EGFR Non-African American 6.1 (>60)
[2017-08-09 04:26] LABS: ABS Basophils 0 10^3/ul (0-0.2); ABS Eosinophils 0.1 10^3/ul (0-0.6); ABS Lymphocytes 1.3 10^3/ul (1.0-4.8); ABS Monocytes 1.3 10^3/ul (0-0.8); ABS Neutrophils 21.3 10^3/ul (1.5-7.7); ABS Nucleated RBC 0 10^3/ul; Eosinophil % 0.6 % (0-6); Lymphocyte % 5.4 % (25-47); Nucleated Red Blood Cells % 0
[2017-08-09] MEDS: Acetaminophen TAB* 325 MG PO PRN ×2 (05:16→09:08)
[2017-08-09] MEDS: Vancomycin Random Level* NOTE FOLLOW UP SCH (05:17)
[2017-08-09] MEDS ORDERED: Piperacillin/Tazobac ADVAN(*) 3.375 GM in NS 0.9% 100 ML* 100 ML IVPB ONE (08:00)
[2017-08-09] MEDS: Potassium Chlor TAB* 20 MEQ TAB.ER PO SCH (08:44)
[2017-08-09] MEDS: Ticagrelor* 90 MG TAB PO SCH ×2 (08:44→21:22)
[2017-08-09] MEDS: Aspirin Low Dose CHEW TAB* 81 MG PO SCH (08:45)
[2017-08-09] MEDS: Omeprazole CAP* 20 MG PO SCH ×2 (08:45→21:22)
[2017-08-09] MEDS: Sevelamer TAB* 800 MG PO SCH ×3 (08:45→17:39)
[2017-08-09] MEDS: Lanthanum CHEW TAB* 500 MG PO SCH ×3 (08:46→17:38)
[2017-08-09] MEDS: Heparin VIAL(*) 5000 UNITS/ML VIAL (FIVE THOUSAND) SUBCUT SCH ×2 (08:46→21:20)
[2017-08-09] MEDS: Insulin LISPRO* 1 UNITS UNIT SUBCUT SCH ×4 (08:54→21:21)
[2017-08-09] MEDS ORDERED: Vancomycin(*) 1,000 MG in NS 0.9% 250 ML* 250 ML IVPB PRN (09:00)
[2017-08-09] MEDS ORDERED: Aspirin EC Low Dose* 81 MG TAB.EC PO SCH (09:00)
--- NOTE | 2017-08-09 09:06 | PN ---
Progress Note - Progress Note Date of Service: 08/09/17 Note: Consultation Note -- Critical Care 24 hour events: -s/p cath for STEMI inf wall, s/p PCI -overnight okay, no cp/sob/n/v/abd pain/fever/chills -BP stable, remains on NS infusion -makes some urine at times only, straight cath done overnight -feels better than yesterday as per her. Tele: NSR Vitals: Vital Signs Temp 98.8 F 08/09/17 08:00 Pulse 73 08/09/17 06:15 Resp 28 08/09/17 06:15 BP 91/50 08/09/17 06:15 Pulse Ox 97 08/09/17 06:15 Intake & Output 08/08/17 08/09/17 08/09/17 18:59 06:59 18:59 Intake Total 2350 432 Output Total 150 Balance 2350 282 Weight 192 lb 14.472 oz 197 lb 15.602 oz Intake: IV Fluids 2350 432 NS 432 Output: Urine 150 Other: # Bowel Movements 1 Estimated Stool Amount Large O2/Vent: RA Infusions: ns 75 cc/hr Current Medications: Acetaminophen (Tylenol Tab*) 650 mg PO Q4H PRN PRN Reason: FEVER/PAIN Last Admin: 08/09/17 05:16 Dose: 650 mg Aspirin (Aspirin Low Dose Tab*) 81 mg PO DAILY [facility] Last Admin: 08/09/17 08:45 Dose: 81 mg Atorvastatin Calcium (Lipitor*) 80 mg PO 1700 [facility] Dextrose (D50w Syringe 50 Ml*) 12.5 gm IV PUSH .FOR FS < 60 - SS PRN PRN Reason: FS < 60 Heparin Sodium (Porcine) (Heparin Vial(*)) 5,000 units SUBCUT Q12HR [facility] Last Admin: 08/09/17 08:46 Dose: 5,000 units Sodium Chloride (Ns 0.9% 1000 Ml*) 1,000 mls @ 75 mls/hr IV PER RATE [facility] Vancomycin HCl 1,000 mg/ (Sodium Chloride) 250 mls @ 166.667 mls/hr IVPB DAILY PRN; Protocol PRN Reason: RANDOM LEVEL <20 Piperacillin Sod/Tazobactam (Sod 3.375 gm/ Sodium Chloride) 100 mls @ 25 mls/ hr IVPB Q12H [facility] Potassium Chloride (Potassium Chloride 10 Meq/50 Ml Ivpremix*) 10 meq in 50 mls @ 50 mls/hr IV Q1H [facility] Stop: 08/09/17 12:59 Insulin Human Lispro (Humalog*) 0 units SUBCUT ACHS [facility] PRN Reason: Protocol Last Admin: 08/09/17 08:54 Dose: Not Given Lanthanum Carbonate (Fosrenol Chew Tab*) 1,000 mg PO TID WITH MEALS [facility] Last Admin: 08/09/17 08:46 Dose: 1,000 mg Nitroglycerin (Nitroglycerin Tab 0.4 Mg*) 0.4 mg SL Q5M PRN PRN Reason: ANGINA Omeprazole (Prilosec Cap*) 20 mg PO BID [facility] Last Admin: 08/09/17 08:45 Dose: 20 mg Ondansetron HCl (Zofran Inj*) 4 mg IV Q6H PRN PRN Reason: NAUSEA Pharmacy Consult (Zosyn Per Pharmacy*) 1 note FOLLOW UP .ZOSYN PER PHARMACY [facility] Pharmacy Consult (Vancomycin - Dialysis Dosing*) 1 note FOLLOW UP . [facility] Pharmacy Consult (Vancomycin Random Level*) 1 note FOLLOW UP DAILY@0600 [facility] Last Admin: 08/09/17 05:17 Dose: Not Given Potassium Chloride (Klor Con Er Tab*) 20 meq PO DAILY [facility] Last Admin: 08/09/17 08:44 Dose: 20 meq Sevelamer Carbonate (Renvela Tab*) 1,600 mg PO TID WITH MEALS [facility] Last Admin: 08/09/17 08:45 Dose: 1,600 mg Ticagrelor (Brilinta*) 90 mg PO BID [facility] Last Admin: 08/09/17 08:44 Dose: 90 mg Physical Exam: General: awake, alert, no distress, no diaphoresis Head: normocephalic, atraumatic HEENT: no pallor, no icterus, moist mucous membranes Neck: soft, supple, no jvd, no stridor CVS: normal rate, regular, no murmur Resp: bilateral air entry, no rhales, no wheeze, no rhonchi, no acc muscle use Abdomen: soft, nontender, nondistended, BS+; left abd PD catheter+; Right buttock erythematous, indurated and tense, 1 escar site not open, 2nd open wound with active drainage of pus+, tender+ Ext: pulses+, warm, no edema; right femoral site intact without hematoma Skin: intact, no breakdown, no dryness Neuro: awake, alert, orientedx3, moving all extremities, no gross focal deficit Labs: Laboratory Results - last 24 hr 08/08/17 08/08/17 08/08/17 12:37 12:37 12:37 WBC 23.0 H RBC 3.21 L Hgb 10.9 L Hct 33 L MCV 102 H MCH 34 H MCHC 33 RDW 15 Plt Count 543 H MPV 9 Neut % (Auto) 87.9 H Lymph % (Auto) 5.8 L Howard % (Auto) 5.7 Eos % (Auto) 0.4 Baso % (Auto) 0.2 Absolute Neuts (auto) 20.2 H Absolute Lymphs (auto) 1.3 Absolute Monos (auto) 1.3 H Absolute Eos (auto) 0.1 Absolute Basos (auto) 0.1 Absolute Nucleated RBC 0 Nucleated RBC % 0 INR (Anticoag Therapy) 1.17 H APTT 30.3 Sodium 126 L Potassium 2.9 L Chloride 86 L Carbon Dioxide 23 Anion Gap 17 H BUN 54 H Creatinine 6.80 H Est GFR ( Amer) 7.8 Est GFR (Non-Af Amer) 6.1 BUN/Creatinine Ratio 7.9 L Glucose 362 H POC Glucose (mg/dL) Hemoglobin A1c Lactic Acid Calcium 9.1 Total Bilirubin 0.50 AST 22 ALT 10 Alkaline Phosphatase 167 H Total Creatine Kinase CK-MB (CK-2) Troponin I 0.12 H* Total Protein 6.9 Albumin 2.5 L Globulin 4.4 H Albumin/Globulin Ratio 0.6 L Triglycerides 245 Cholesterol 101 LDL Cholesterol 45 HDL Cholesterol 6.6 Urine Color Urine Appearance Urine pH Ur Specific Rough And Ready Urine Protein Urine Ketones Urine Blood Urine Nitrate Urine Bilirubin Urine Urobilinogen Ur Leukocyte Esterase Urine WBC (Auto) Urine RBC (Auto) Ur Squamous Epith Cells Urine Bacteria Urine Glucose Random Vancomycin 08/08/17 08/08/17 08/08/17 12:37 12:45 15:54 WBC RBC Hgb Hct MCV MCH MCHC RDW Plt Count MPV Neut % (Auto) Lymph % (Auto) Howard % (Auto) Eos % (Auto) Baso % (Auto) Absolute Neuts (auto) Absolute Lymphs (auto) Absolute Monos (auto) Absolute Eos (auto) Absolute Basos (auto) Absolute Nucleated RBC Nucleated RBC % INR (Anticoag Therapy) APTT Sodium Potassium Chloride Carbon Dioxide Anion Gap BUN Creatinine Est GFR ( Amer) Est GFR (Non-Af Amer) BUN/Creatinine Ratio Glucose POC Glucose (mg/dL) Hemoglobin A1c Lactic Acid 4.9 H* 2.8 H* Calcium Total Bilirubin AST ALT Alkaline Phosphatase Total Creatine Kinase CK-MB (CK-2) Troponin I Total Protein Albumin Globulin Albumin/Globulin Ratio Triglycerides Cholesterol LDL Cholesterol HDL Cholesterol Urine Color Yellow Urine Appearance Cloudy Urine pH 5.0 Ur Specific Rough And Ready 1.037 H Urine Protein 2+(100 mg/dl) H Urine Ketones Negative Urine Blood 1+ H Urine Nitrate Negative Urine Bilirubin Negative Urine Urobilinogen Negative Ur Leukocyte Esterase 2+ H Urine WBC (Auto) 3+(>20/hpf) H Urine RBC (Auto) 3+(>10/hpf) H Ur Squamous Epith Cells Present H Urine Bacteria Absent Urine Glucose 3+(>=500 mg/dl) H Random Vancomycin 08/08/17 08/08/17 08/08/17 15:54 18:32 18:37 WBC RBC Hgb Hct MCV MCH MCHC RDW Plt Count MPV Neut % (Auto) Lymph % (Auto) Howard % (Auto) Eos % (Auto) Baso % (Auto) Absolute Neuts (auto) Absolute Lymphs (auto) Absolute Monos (auto) Absolute Eos (auto) Absolute Basos (auto) Absolute Nucleated RBC Nucleated RBC % INR (Anticoag Therapy) APTT Sodium Potassium Chloride Carbon Dioxide Anion Gap BUN Creatinine Est GFR ( Amer) Est GFR (Non-Af Amer) BUN/Creatinine Ratio Glucose POC Glucose (mg/dL) 255 H Hemoglobin A1c Lactic Acid Calcium Total Bilirubin AST ALT Alkaline Phosphatase Total Creatine Kinase CK-MB (CK-2) Troponin I 0.10 H* 1.23 H* Total Protein Albumin Globulin Albumin/Globulin Ratio Triglycerides Cholesterol LDL Cholesterol HDL Cholesterol Urine Color Urine Appearance Urine pH Ur Specific Rough And Ready Urine Protein Urine Ketones Urine Blood Urine Nitrate Urine Bilirubin Urine Urobilinogen Ur Leukocyte Esterase Urine WBC (Auto) Urine RBC (Auto) Ur Squamous Epith Cells Urine Bacteria Urine Glucose Random Vancomycin 08/08/17 08/09/17 08/09/17 20:30 03:36 03:36 WBC 24.0 H RBC 2.77 L Hgb 9.2 L Hct 28 L MCV 102 H MCH 33 H MCHC 33 RDW 15 Plt Count 463 H D MPV 8 Neut % (Auto) 88.5 H Lymph % (Auto) 5.4 L Howard % (Auto) 5.4 Eos % (Auto) 0.6 Baso % (Auto) 0.1 Absolute Neuts (auto) 21.3 H Absolute Lymphs (auto) 1.3 Absolute Monos (auto) 1.3 H Absolute Eos (auto) 0.1 Absolute Basos (auto) 0 Absolute Nucleated RBC 0 Nucleated RBC % 0 INR (Anticoag Therapy) APTT Sodium Potassium Chloride Carbon Dioxide Anion Gap BUN Creatinine Est GFR ( Amer) Est GFR (Non-Af Amer) BUN/Creatinine Ratio Glucose POC Glucose (mg/dL) Hemoglobin A1c 8.7 H Lactic Acid Calcium Total Bilirubin AST ALT Alkaline Phosphatase Total Creatine Kinase 44 CK-MB (CK-2) 7.6 H Troponin I Total Protein Albumin Globulin Albumin/Globulin Ratio Triglycerides Cholesterol LDL Cholesterol HDL Cholesterol Urine Color Urine Appearance Urine pH Ur Specific Rough And Ready Urine Protein Urine Ketones Urine Blood Urine Nitrate Urine Bilirubin Urine Urobilinogen Ur Leukocyte Esterase Urine WBC (Auto) Urine RBC (Auto) Ur Squamous Epith Cells Urine Bacteria Urine Glucose Random Vancomycin 08/09/17 08/09/17 08/09/17 03:36 03:37 03:37 WBC RBC Hgb Hct MCV MCH MCHC RDW Plt Count MPV Neut % (Auto) Lymph % (Auto) Howard % (Auto) Eos % (Auto) Baso % (Auto) Absolute Neuts (auto) Absolute Lymphs (auto) Absolute Monos (auto) Absolute Eos (auto) Absolute Basos (auto) Absolute Nucleated RBC Nucleated RBC % INR (Anticoag Therapy) 1.21 H APTT 32.1 Sodium 129 L Potassium 3.0 L Chloride 95 L Carbon Dioxide 20 L Anion Gap 14 H BUN 60 H Creatinine 6.79 H Est GFR ( Amer) 7.8 Est GFR (Non-Af Amer) 6.1 BUN/Creatinine Ratio 8.8 Glucose 231 H POC Glucose (mg/dL) Hemoglobin A1c Lactic Acid 2.8 H* Calcium 8.2 L Total Bilirubin AST ALT Alkaline Phosphatase Total Creatine Kinase 23 CK-MB (CK-2) 6.6 H Troponin I Total Protein Albumin Globulin Albumin/Globulin Ratio Triglycerides 224 Cholesterol 89 LDL Cholesterol 40 HDL Cholesterol 4.7 Urine Color Urine Appearance Urine pH Ur Specific Rough And Ready Urine Protein Urine Ketones Urine Blood Urine Nitrate Urine Bilirubin Urine Urobilinogen Ur Leukocyte Esterase Urine WBC (Auto) Urine RBC (Auto) Ur Squamous Epith Cells Urine Bacteria Urine Glucose Random Vancomycin 14.5 08/09/17 08:40 WBC RBC Hgb Hct MCV MCH MCHC RDW Plt Count MPV Neut % (Auto) Lymph % (Auto) Howard % (Auto) Eos % (Auto) Baso % (Auto) Absolute Neuts (auto) Absolute Lymphs (auto) Absolute Monos (auto) Absolute Eos (auto) Absolute Basos (auto) Absolute Nucleated RBC Nucleated RBC % INR (Anticoag Therapy) APTT Sodium Potassium Chloride Carbon Dioxide Anion Gap BUN Creatinine Est GFR ( Amer) Est GFR (Non-Af Amer) BUN/Creatinine Ratio Glucose POC Glucose (mg/dL) Hemoglobin A1c Lactic Acid Calcium Total Bilirubin AST ALT Alkaline Phosphatase Total Creatine Kinase 42 CK-MB (CK-2) Troponin I Total Protein Albumin Globulin Albumin/Globulin Ratio Triglycerides Cholesterol LDL Cholesterol HDL Cholesterol Urine Color Urine Appearance Urine pH Ur Specific Rough And Ready Urine Protein Urine Ketones Urine Blood Urine Nitrate Urine Bilirubin Urine Urobilinogen Ur Leukocyte Esterase Urine WBC (Auto) Urine RBC (Auto) Ur Squamous Epith Cells Urine Bacteria Urine Glucose Random Vancomycin Imaging: CT abd/pelvis 08/08 right buttock cellulitus/phelgmon+ EKG 08/08 NSR, inf III/AvF ST elevation with some Qwaves+ ekg 08/09 - nsr, inf qwaves+, st elev resolved Assessment: 67y F w/pmhx of DM, Anemia, HTN, GERD, ESRD on PD; comes to ER with friend for eval of right buttock wound. Patient initially had nausea/ vomiting approximately 11 days back, which got better, suspected GI illness. Then 9 days back her buttock started to hurt and a small lesion appears, no trauma noted at site. She subsequently developed a second small nodular lesion next to it. Diarrhea occurred 3-4x the following day. Poor po intake during episodes of nausea/vom and diarrhea. There was drainage for the past week from the buttock lesions and increasing pain and tenderness. In ER started on sepsis protocol. EKG showed STEMI Inf wall, s/p Cath with PCI to midRCA x1. CT abd/ pelvis with phlegmon of right buttock. -Septic Shock, now more severe sepsis -Right Buttock Cellulitus/phlegmon -Inferior Wall STEMI of RCA, s/p PCI x1 -ESRD on PD -metabolic acidosis -anemia Plan: Neuro- stable. delirium prec. CVS- septic shock, LA improving slowly, now more severe sepsis. Cont NS infusion 75cc/hour. MAPs ~65, SBP 90s. No plan for PD today, cont rescucitation. Plan for PD tomorrow likely. IV abx zosyn/vanco. Warm and perfusing. No pressors needed at this time. Cont asa/brillinta/statin for Coronary stent. f/u ECHO. No BB yet, given lower BPs, reassess and start once consistently higher bps. Resp- on RA, no distress. ID- afebrile, wbc 24k unchanged. Right buttock deep tissue infection with escar and 2nd open lesion with drainage. send wound culture of drainage. blood culture pending. Cont zosyn/vanco (day#2). GI- No abd pain. Right gluteal cellulitus/phelmon. wound care. surgical consult pending for further f/u. PD cathetor in place. Renal- ESRD on PD. No plan for PD today. Hyponatremia improving, Cl improving. cont NS 75cc/hour. Replete K IV and PO. no dexter. urinalysis without bacteria. Heme- anemia, drop in hg to 9s. plt okay. DAPT for CAD/STEMI. Endo- fingersticks achs. Musculsk- pressure ulcer prophlaxis. no pressure on right buttock. Wounds- wound care to right buttock, obtain wound drainage culture. surgical consultation for possible debridement if needed in coming days. IV abx. Nutrition- advance diet DVT prophylaxis: scds, heparin sq GI prophylaxis: omeprazole po Central Line: no Arterial Line: no Dexter Cathetor: no Disposition: ICU Code Status: full code Total Critical Care time is 40 minutes, excluding procedures/teaching Bora Yung MD [employer] (Electronically Signed)
[2017-08-09] MEDS ORDERED: Potassium Chloride IV* 30 MEQ in NS 0.9% 250 ML* 250 ML IVPB ONE (10:00)
[2017-08-09] MEDS ORDERED: KCL 10 MEQ/50 ML IVPREMIX* 10 MEQ/50 ML BAG IV SCH (10:00)
--- NOTE | 2017-08-09 10:42 | PN ---
Progress Note - Progress Note Date of Service: 08/09/17 SOAP: Subjective: Pt seen and examined with NPP. Full consult dictated. Pain and drainage from right buttock abscess. s/p cardiac cath and stent yesterday. Objective: focussed exam of buttocks reveals 3 x5cm eschar and 1x2 cm adjacent eschar at medial R buttock, open wound medial to these 1/2cm with foul smelling purulent drainage. Culture taken Assessment: Likely perirectal abscess extending to buttocks. Plan: Excisional debridement of right buttock ulcer and drainage of perirectal abscess abx R/B/A discussed and pt wishes to proceed. CCM team aware and agrees.
[2017-08-09] MEDS: NS 0.9% 1000 ML* 1,000 ML IV SCH (12:56)
[2017-08-09] MEDS ORDERED: Methylene Blue 0.5 %* 50 MG/10 ML AMP IV ONE (13:52)
[2017-08-09] MEDS ORDERED: Bupivacaine 0.25% SDV* 30 ML ONE (13:53)
[2017-08-09] MEDS ORDERED: Lidocaine 1.5% EPI 1:200,000* 30 ML SDV ONE (13:53)
[2017-08-09] MEDS ORDERED: Bupivacaine 0.5% SDV PF* 10-30ML VIAL ONE (13:53)
[2017-08-09] MEDS ORDERED: Gelfoam Sponge SIZE 100* SPONGE ONE (13:55)
--- NOTE | 2017-08-09 14:17 | CONS ---
CC: Dr. Paulino; Dr. Bora Yung CONSULTATION REPORT: DATE OF CONSULT: 08/09/17 PATIENT OF: Bora Yung MD CONSULTED TO: Ousmane Cardenas MD REASON FOR CONSULT: Right buttock abscess. HISTORY OF PRESENT ILLNESS: Mrs. English is a pleasant 67-year-old female who was admitted to the the [facility] care unit yesterday with complaints of generalized fatigue and illness. She apparently came to the ER yesterday with initial complaints of one week history of generally not feeling well. She dorene cribed persistent fatigue, weakness, and decreased appetite with associated intermittent nausea, but denies any vomiting. She also described occasional fever and chills and generally not feeling well. She has significant past medical history including end-stage renal disease for which she has been on peritoneal dialysis at home as well as diabetes mellitus, hypertension, GERD, and coronary artery di sease. During her emergency room visit, she was found to have significant leukocytosis with white co unt of 23,000 as well as hypotension and tachycardia consistent with probable sepsis. She also had c ardiac workup that revealed elevated troponin and an EKG consistent with possible STEMI for which she was taken to the catheter lab yesterday evening. The patient was then sent back to the intensive ca re unit in stable condition. We were asked to see her for further evaluation of a right buttock absc ess that she reports has been there for the past few days. The patient has been using bacitracin oin tment to 2 "sore areas" in her right buttock for the past week or so, but gradually has gotten worse with increased redness, swelling, and in the past 24 hours noticed an opening with a foul-smelling di scharge from the area. Given her ongoing symptoms and findings of right buttock cellulitis and possi ble abscess, we were asked for a surgical consultation. PAST MEDICAL HISTORY: Significant for; 1. End-stage renal disease. 2. Diabetes mellitus. 3. Vertigo. 4. Hypertension. 5. GERD. PAST SURGICAL HISTORY: Significant for PT dialysis catheter placement by Dr. Willingham as well as AV fi stula of the right arm for a possible hemodialysis use. She also has history of knee arthroscopy in the past. HOME MEDICATIONS: Include; 1. Veltassa 8.4 g p.o. q. day as needed. 2. Potassium chloride 20 mEq daily. 3. Lasix 40 mg p.o. daily. 4. Cipro 750 mg p.o. as instructed. 5. Keflex 1000 mg p.o. b.i.d. 6. Bactroban one application topically to right buttock daily. 7. Tylenol extra strength 1 to 2 tablets as needed for pain. 8. Prilosec 20 mg p.o. b.i.d. 9. Carvedilol 6.25 mg p.o. b.i.d. 10. Aspirin 81 mg p.o. daily. 11. Renvela 1600 mg p.o. t.i.d. with meals. ALLERGIES: She is allergic to LATEX, but no known drug allergies. FAMILY HISTORY: Noncontributory. SOCIAL HISTORY: She is a nonsmoker who does not drink alcohol and caffeine intake is minimal. REVIEW OF SYSTEMS: See HPI, otherwise negative. She denies any headache, dizziness, blurred vision or syncope. She does report some chest pain on initial presentation, but denies any chest pain this morning. No palpitations, sore throat, cough, or shortness of breath. She denies any abdominal pain , nausea, vomiting, or recent changes in the bowel habits. She reports right buttock pain, swelling, redness, and recently discharge from a small opening with foul smelling apparently pus. She also re ports fever upon presentation and chills, but no weight loss or night sweats. PHYSICAL EXAM: General: She is a pleasant, upper middle-aged female appears, comfortable in bed and in no acute distress or discomfort. Vitals: Most recent set of vitals with temperature of 98.8, pu lse of 71, respirations of 13, blood pressure of 98/64, and O2 sat of 99% on room air. HEENT: Head is normocephalic, atraumatic. Sclerae anicteric. PERRLA. EOMs intact. Oropharynx is pink and mois t. Neck: Supple. Trachea midline. No cervical adenopathy or thyromegaly. Lungs: Clear to auscult ation bilaterally. Heart: Regular rate and rhythm. Normal S1 and S2 without rubs, murmurs, or brito ps. Back: With normal curvature. No CVA tenderness. Abdomen: Soft, nontender, and nondistended. No hernias, masses, or hepatosplenomegaly. Focused exam of the right buttock area revealed a large a reno of induration and erythema almost over the entire right side with two at separate areas of eschar that were tender on palpation with surrounding erythema and induration. There is a separate opening with initially an exudate noted that was dilated using a straight clamp with significant amount of f oul smelling purulent material were drained. Cultures were obtained and the wound was covered for no w with dry dressing. Sphincter tone was normal and there was no initial evidence of any fistula form ation at this time. Extremities: Without cyanosis, clubbing, or edema. Neurologic: Grossly intact . DIAGNOSTIC STUDIES/LAB DATA: Her CBC today with white count of 24,000; hemoglobin of 9.2; hematocrit of 28; and platelets of 463. Her chemistry with sodium of 129, potassium 3.0, chloride 95, CO2 of 2 0, BUN of 60, and creatinine 6.79. Her lactic acid is 2.2. Troponin drawn at 6 o'clock last night i s 1.23 and her CK-MB is 6.1. ACCESSORY DIAGNOSTIC DATA: The patient had a CT scan of the abdomen and pelvis yesterday before her admission while she was in the emergency room that revealed cellulitis and phlegmon changes on the ri ght gluteal region. 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 PLAN: The patient was seen and examined by Dr. Cardenas as well as myself this morning. Minor I and D at bedside was done and cultures were obtained and we discussed with her proceeding with formal incis ion and drainage as well as evacuation of right buttock abscess and debridement of necrotic eschar on the right buttock later today in the operating room. The rationale indication risks and benefits of surgery were discussed with her today. Risks include but not limited to infection, bleeding, or inj ury to adjacent structures. She appears to understand and wishes to proceed as outlined. The patien t had breakfast earlier this morning and has been NPO since. We will likely take her to the operatin g room this afternoon in anticipation for surgery as outlined and we will follow her up accordingly. NATHALIE ALEX [id number]/[facility] #: [id number]
[2017-08-09] MEDS ORDERED: Midazolam* 1 MG/ML 2 ML VIAL (2 MG) ONE ×2 (14:20→14:31)
[2017-08-09] MEDS ORDERED: fentaNYL* 50 MCG/ML 2 ML VIAL (100 MCG VIAL) ONE ×3 (14:25→15:18)
[2017-08-09] MEDS ORDERED: Propofol* 10 MG/ML 20 ML BTL IV PUSH ONE (14:52)
[2017-08-09] MEDS ORDERED: Sodium Chloride * 10 ML ONE (14:54)
--- NOTE | 2017-08-09 15:03 | BRIEFOPN ---
Brief Operative Note - Surgery Procedures: Procedures Pre-OP Diagnoses: perirectal abscess Post-op Diagnosis: same Procedure: excisional debridement of Right butttock ulcers and drainage of abscess Surgeon: Ronald Asst: none Anethesia: local MAC EBL: minimal IVF: crystalloid Specimen: pus for Cx Drains: none
[2017-08-09] MEDS ORDERED: fentaNYL* 50 MCG/ML 2 ML VIAL (100 MCG VIAL) IV PRN (15:04)
[2017-08-09] MEDS ORDERED: Naloxone* 0.4 MG/ML 1 ML VIAL IV PRN (15:04)
[2017-08-09] MEDS ORDERED: Morphine INJ* 2 MG/ML 1 ML SYRINGE (TWO MG - NEW SYRINGE VERSION) IV PRN (15:06)
[2017-08-09] MEDS: oxyCODONE/Acetamin 5/325 MG* TAB PO PRN (16:21)
[2017-08-09] MEDS: Atorvastatin* 80 MG TAB PO SCH (17:37)
[2017-08-09] MEDS: ZOSYN 3.375 GM Q12H per EXTENDED INFUSION IVPB SCH ×2 (21:22)
--- NOTE | 2017-08-09 22:50 | CATH ---
CC: Dr. Ralph * STENT REPORT: DATE OF PROCEDURE: 08/08/17 - ROOM #ICU-06 DATE OF DICTATION: 08/09/17 ANIMAL ANATOMY TEACHER: Dr. Ralph. PROCEDURES: Right common femoral artery access; right common femoral artery angiogram; Mynxgrip closure, right common femoral artery; bilateral selective coronary cineangiography; left heart catheterization. HISTORY: A 67-year-old woman with CKD, stage 5, on peritoneal dialysis, presenting to the ER with 4-day history of severe soft tissue infection of the buttocks, incidentally was noted to have inferior ST-elevation infarct on EKG, even though she is pain free. Because of the lack of symptoms, totally different presenting history, there was a delay in ohtq-qm-bvayydx time including CT imaging of the pelvis to rule out abscess formation, she also had an echocardiogram to evaluate wall motion. PROCEDURE ACCESS: The right radial was not usable because of an AV fistula. The left radial was less than 2 mm by ultrasound. ACCESS: Right common femoral artery sheath 6F. MEDICATIONS: 1. Subcu lidocaine. 2. IV Versed. 3. IV fentanyl. 4. Heparin 5000 units, 3000 units. 5. Brilinta 180 mg p.o. Boluses of fluid. She was transiently hypotensive in the ER, received 2 to 3 L of fluid, met sepsis criteria. DIAGNOSTIC CATHETERS: 5FL 3.5, 5FR4. LV gram was not performed. Guiding catheter RCA 6FR4, wire 14 BMW used to deploy a 4 x 20 bare-metal stent proximal RCA, 11 atmospheres 18 seconds, postdilated with a 4 x 20 NC balloon, 18 atmospheres 30 seconds. HEMODYNAMICS: Initial BP 112/62, LV 80/9, no aortic valve gradient on pullback. ANGIOGRAPHY: RFA: Sheath entry is in segment 2, there is no stenosis. Left main: The left main is normal in size, has no stenosis. It has adjacent linear calcification. LAD: The LAD is moderate, extends to the apex, it is calcified. The LAD supplies a moderate diagonal branch after which the LAD has a tubular smooth 60 % stenosis. There are [id number] collaterals, distal RCA. Circumflex: The circumflex is not dominant, is retroflexed with a moderate marginal and a small posterolateral. It has no significant stenosis. RCA: The RCA is large, dominant. In its mid portion, it has a lucent 90% stenosis with thrombus. The PDA is moderate followed by a moderate posterolateral and then competitive flow in the distal posterolateral. After stent implantation, postdilatation, antegrade flow is AMY-3, there is no residual stenosis. CONCLUSION: 1. Two-vessel disease with culprit RCA, high-grade stenosis, excellent angiographic result with bare-metal stent placement. Bare-metal stent was utilized because of the possible need for surgery for her extensive soft tissue infection. 2. Delayed svsm-tg-[id number] time due to very atypical presentation and a number of comorbidities including severe soft tissue infection that needed to be evaluated prior to going to the clinical laboratory service teacher. 3. Normal left-sided hemodynamics. 4. Successful Mynxgrip closure, right common femoral artery. [id number]/[facility] #: [id number] DAVID
[2017-08-10] MEDS: NS 0.9% 1000 ML* 1,000 ML IV SCH (03:03)
[2017-08-10] MEDS: Acetaminophen TAB* 325 MG PO PRN ×3 (06:34→16:21)
[2017-08-10 06:48] LABS: EGFR Non-African American 5.8 (>60)
[2017-08-10] MEDS: Vancomycin Random Level* NOTE FOLLOW UP SCH (07:55)
[2017-08-10] MEDS: Insulin LISPRO* 1 UNITS UNIT SUBCUT SCH ×4 (08:49→20:53)
[2017-08-10] MEDS: ZOSYN 3.375 GM Q12H per EXTENDED INFUSION IVPB SCH ×4 (09:04→20:10)
[2017-08-10] MEDS: Lanthanum CHEW TAB* 500 MG PO SCH ×3 (09:10→17:46)
[2017-08-10] MEDS: Ticagrelor* 90 MG TAB PO SCH ×2 (09:11→20:54)
[2017-08-10] MEDS: Omeprazole CAP* 20 MG PO SCH ×2 (09:11→20:53)
[2017-08-10] MEDS: Potassium Chlor TAB* 20 MEQ TAB.ER PO SCH (09:11)
[2017-08-10] MEDS: Aspirin Low Dose CHEW TAB* 81 MG PO SCH (09:11)
[2017-08-10] MEDS: Sevelamer TAB* 800 MG PO SCH ×3 (09:11→17:46)
[2017-08-10] MEDS: Heparin VIAL(*) 5000 UNITS/ML VIAL (FIVE THOUSAND) SUBCUT SCH ×2 (09:13→20:53)
--- NOTE | 2017-08-10 09:35 | PN ---
Progress Note - Progress Note Date of Service: 08/10/17 SOAP: Subjective: Pt seen and examined. pain at surgical ite. Remains in ICU Objective: afebrile R buttock: packing removed, some active bleeding. foul smelling drainage but not feculent re-packed Assessment: POD 1 excisional debridement and drainage of complex perirectal abscess diagnosis discussed with pt and plan Plan: packing changes daily and as needed. possible conversion to NPWTin 3-4 days. SACMA to cover me until next Tuesday abx, ?ID consult f/u cultures
[2017-08-10 09:40] LABS: Hematocrit 28 % (35-47); Hemoglobin 9.4 g/dl (12.0-16.0); Mean Corpuscular HGB Conc 33 g/dl (31-36); Mean Corpuscular Hemoglobin 33 pg (27-31); Mean Corpuscular Volume 100 fL (80-97); Red Blood Count 2.81 10^6/ul (4.0-5.4); Red Cell Distribution Width 15 % (10.5-15)
[2017-08-10 09:54] LABS: Mean Platelet Volume 9 um3 (7.4-10.4); Platelet Count 456 10^3/ul (150-450)
--- NOTE | 2017-08-10 10:49 | PN ---
Progress Note - Progress Note Date of Service: 08/10/17 Note: Progress Note -- Critical Care 24 hour events: -BP labile at times, awake, alert. buttock pain -s/p OR for debridement of abscess yesterday -for PD today Tele: NSR Vitals: Vital Signs Temp 97.7 F 08/10/17 04:00 Pulse 79 08/10/17 10:00 Resp 17 08/10/17 10:00 BP 84/40 08/10/17 10:00 Pulse Ox 97 08/10/17 10:00 Intake & Output 08/09/17 08/10/17 08/10/17 18:59 06:59 18:59 Intake Total 1744 1601 240 Output Total 25 Balance 1719 1601 240 Weight 206 lb 12.697 oz Intake: IV Fluids 1264 950 1/2 NS 250 NS 1014 950 IVPB 111 NS 111 Oral 480 540 240 Output: Estimated Blood Loss 25 Other: Estimated Void Small O2/Vent: RA Infusions: ns 75cc/hr Current Medications: Acetaminophen (Tylenol Tab*) 650 mg PO Q4H PRN PRN Reason: FEVER/PAIN Last Admin: 08/10/17 10:39 Dose: 650 mg Aspirin (Aspirin Low Dose Tab*) [address] [facility] Last Admin: 08/10/17 09:11 Dose: 81 mg Atorvastatin Calcium (Lipitor*) [address] [facility] Last Admin: 08/09/17 17:37 Dose: 80 mg Dextrose (D50w Syringe 50 Ml*) 12.5 gm IV PUSH .FOR FS < 60 - SS PRN PRN Reason: FS < 60 Heparin Sodium (Porcine) (Heparin Vial(*)) 5,[address] [facility] Last Admin: 08/10/17 09:13 Dose: 5,000 units Vancomycin HCl 1,000 mg/ (Sodium Chloride) 250 mls @ 166.667 mls/hr IVPB DAILY PRN; Protocol PRN Reason: RANDOM LEVEL <20 Last Admin: 08/09/17 11:38 Dose: 166.667 mls/hr Piperacillin Sod/Tazobactam (Sod 3.375 gm/ Sodium Chloride) 100 mls @ 25 mls/ hr IVPB Q12H [facility] Last Admin: 08/10/17 09:04 Dose: 25 mls/hr Sodium Bicarbonate 75 meq/ (Dextrose/Sodium Chloride) 1,000 mls @ 50 mls/hr IV Q20H [facility] Insulin Human Lispro (Humalog*) 0 units SUBCUT ACHS LUPE PRN Reason: Protocol Last Admin: 08/10/17 08:49 Dose: Not Given Lanthanum Carbonate (Fosrenol Chew Tab*) 1,000 mg PO TID WITH MEALS [facility] Last Admin: 08/10/17 09:10 Dose: Not Given Morphine Sulfate (Morphine Inj (Syringe)*) 2 mg IV Q1H PRN PRN Reason: PAIN - SEVERE Mupirocin (Bactroban 2 % Oint*) [address] [facility] Naloxone HCl (Narcan*) 0.08 mg IV Q2M PRN PRN Reason: severe induced resp depression Stop: 08/10/17 15:03 Nitroglycerin (Nitroglycerin Tab 0.4 Mg*) 0.4 mg SL Q5M PRN PRN Reason: ANGINA Omeprazole (Prilosec Cap*) [address] [facility] Last Admin: 08/10/17 09:11 Dose: 20 mg Ondansetron HCl (Zofran Inj*) 4 mg IV Q6H PRN PRN Reason: NAUSEA Oxycodone/Acetaminophen (Percocet 5/325 Tab*) 2 tab PO Q6H PRN PRN Reason: PAIN Last Admin: 08/09/17 16:21 Dose: 2 tab Pharmacy Consult (Zosyn Per Pharmacy*) 1 note FOLLOW UP .ZOSYN PER PHARMACY [facility] Pharmacy Consult (Vancomycin - Dialysis Dosing*) [address] [facility] Pharmacy Consult (Vancomycin Random Level*) 1 note FOLLOW UP DAILY@0600 [facility] Last Admin: 08/10/17 07:55 Dose: 1 note Potassium Chloride (Klor Con Er Tab*) [address] [facility] Last Admin: 08/10/17 09:11 Dose: 20 meq Sevelamer Carbonate (Renvela Tab*) 1,600 mg PO TID WITH MEALS [facility] Last Admin: 08/10/17 09:11 Dose: 1,600 mg Ticagrelor (Brilinta*) [address] [facility] Last Admin: 08/10/17 09:11 Dose: 90 mg Physical Exam: General: awake, alert, no distress, no diaphoresis Head: normocephalic, atraumatic HEENT: no pallor, no icterus, moist mucous membranes Neck: soft, supple, no jvd, no stridor CVS: normal rate, regular, no murmur Resp: bilateral air entry, no rhales, no wheeze, no rhonchi, no acc muscle use Abdomen: soft, nontender, nondistended, BS+; left abd PD catheter+; right buttock induration/erythema, dressing in place Ext: pulses+, warm, no edema Skin: intact, no breakdown, no dryness Neuro: awake, alert, orientedx3, moving all extremities, no gross focal deficit Labs: Laboratory Results - last 24 hr 08/09/17 08/09/17 08/09/17 11:59 17:28 20:42 WBC RBC Hgb Hct MCV MCH MCHC RDW Plt Count MPV Sodium Potassium Chloride Carbon Dioxide Anion Gap BUN Creatinine Est GFR ( Amer) Est GFR (Non-Af Amer) BUN/Creatinine Ratio Glucose POC Glucose (mg/dL) 233 H 184 H 147 H Calcium Random Vancomycin 08/10/17 08/10/17 08/10/17 06:15 08:41 09:08 WBC 33.0 H RBC 2.81 L Hgb 9.4 L Hct 28 L MCV 100 H MCH 33 H MCHC 33 RDW 15 Plt Count 456 H MPV 9 Sodium 130 L Potassium 3.4 L Chloride 100 L Carbon Dioxide 13 L* Anion Gap 17 H BUN 66 H Creatinine 7.14 H Est GFR ( Amer) 7.4 Est GFR (Non-Af Amer) 5.8 BUN/Creatinine Ratio 9.2 Glucose 109 H POC Glucose (mg/dL) 131 H Calcium 8.2 L Random Vancomycin 21.5 Imaging: CT abd/pelvis 08/08 right buttock cellulitus/phelgmon+ EKG 08/08 NSR, inf III/AvF ST elevation with some Qwaves+ ekg 08/09 - nsr, inf qwaves+, st elev resolved Assessment: 67y F w/pmhx of DM, Anemia, HTN, GERD, ESRD on PD; comes to ER with friend for eval of right buttock wound. Patient initially had nausea/ vomiting approximately 11 days back, which got better, suspected GI illness. Then 9 days back her buttock started to hurt and a small lesion appears, no trauma noted at site. She subsequently developed a second small nodular lesion next to it. Diarrhea occurred 3-4x the following day. Poor po intake during episodes of nausea/vom and diarrhea. There was drainage for the past week from the buttock lesions and increasing pain and tenderness. In ER started on sepsis protocol. EKG showed STEMI Inf wall, s/p Cath with PCI to midRCA x1. CT abd/ pelvis with phlegmon of right buttock. -Septic Shock, now more severe sepsis -Right Buttock/Perirectal abscess; s/p debridement 08/09 -Inferior Wall STEMI of RCA, s/p PCI x1 -ESRD on PD -metabolic acidosis -anemia Plan: Neuro- stable. delirium prec. CVS- septic shock/severe sepsis, LA improved. Still acidotic. For PD today. change NS to bicarb infusion. BP lower after surgical procedure, likely some transient bacteremia again post procedure. Cont IV abx zosyn/vanco. Warm and perfusing. No pressors needed at this time. Cont asa/brillinta/statin for Coronary stent. f/u ECHO. No BB yet, given lower BPs, reassess and start once consistently higher bps. Resp- on RA, no distress. ID- afebrile, wbc [id number]. Right buttock/perirectal abscess, s/p Debridement 08/09. Cultures from wound polymicrobial. Cont zosyn/vanco (day#3). last random trough 21. dosing by pharmacy. GI- Right perirectal abscess. wound care. surgery following. Renal- ESRD on PD. PD today. Metabolic acidosis+, K 3.6. Change to bicarb infusion for today. Heme- anemia, hg to 9s. plt okay. DAPT for CAD/STEMI. Endo- fingersticks achs. Musculsk- pressure ulcer prophlaxis. no pressure on right buttock. Wounds- wound care to right buttock post debridement. Wound care with packing as per surgery rec. Nutrition- advance diet DVT prophylaxis: scds, heparin sq GI prophylaxis: omeprazole po Central Line: no Arterial Line: no Key Cathetor: no Disposition: ICU Code Status: full code Total Critical Care time is 40 minutes, excluding procedures/teaching Bora Yung MD Air Conditioning Technician (Electronically Signed)
[2017-08-10] MEDS: SODIUM BICARBONATE IV SCH (10:58)
[2017-08-10] MEDS: 1/2 NS IV SCH (10:58)
[2017-08-10] MEDS: D5W IV SCH (10:58)
--- NOTE | 2017-08-10 11:27 | OP ---
CC: Dr. Ralph; Griselda Beal, DANIA; Dr. Paulino * DATE OF OPERATION: 08/09/17 - ROOM #ICU-06 DATE OF : 54 SURGEON: Ousmane Cardenas MD DESIGN SALES CONSULTANT: None. ANESTHESIOLOGIST: Dr. Liu ANESTHESIA: Local MAC. PRE-OPERATIVE DIAGNOSIS: Perirectal abscess with ulceration at the right buttock. POST-OPERATIVE DIAGNOSIS: Perirectal abscess with ulceration at the right buttock. OPERATIVE PROCEDURE: Excisional debridement of right buttock ulcers x2 and drainage of perirectal abscess. ESTIMATED BLOOD LOSS: Minimal. IV FLUIDS: Minimal crystalloid fluid given. SPECIMEN: Purulent fluid for culture, both aerobic and anaerobic. Wound packed open with Kerlix gauze. DESCRIPTION OF PROCEDURE: The patient was seen earlier today, I discussed with her the findings both on CT scan and on examination and recommended drainage in the operating room. We had active drainage while in the ICU bed but there was more pus forthcoming and I recommended more sufficient drainage. The patient agreed and signed consent. She was marked, taken from the ICU to the OR and remained on the ICU bed, was placed in a left lateral decubitus. General sedation was given. The patient's right buttock was lifted up and taped to the bed. She had already received preoperative antibiotics. The area was prepped with Betadine and then draped and a time-out was performed. The draining area most superior and medial was again identified. Purulent drainage was identified in this area. We injected lidocaine from this site in the indurated skin to the first eschar closest to this that measured 3 x 4 cm. This was then incised and purulent drainage was encountered. Cultures were taken. I then debrided the 3 x 4 cm eschar, taking out necrotic skin and subcutaneous fat. We did get down to the muscle but only at the perirectal levator muscle area and not at the buttock area. I then noted that from eschar to the more distal eschar, there was tunneling and performed again injection of lidocaine and then an incision to connect these two again debriding the 2 x 3 cm eschar, again removing necrotic skin and subcutaneous fat. Next, we Pulsavac'd approximately 3 L of warm saline within the wound. I used my finger to bluntly dissect and breakup loculations. At one point, I put a finger in the anus to see if this connected with the lesion, it did not seem to. After the Pulsavac was completed, we then gained hemostasis mostly with electrocautery around the skin edges and also with 2-0 Vicryl suture. We then packed the wound with Kerlix gauze followed by 4 x 4s, ABD pad and the patient was transferred to the PACU. [id number]/[facility] #: [id number] DAVID
[2017-08-10] MEDS ORDERED: Potassium Chlor TAB* 20 MEQ TAB.ER PO ONE (13:56)
[2017-08-10] MEDS: Metoprolol Tartrate TAB* 25 MG PO SCH ×2 (14:11→20:12)
[2017-08-10] MEDS: Atorvastatin* 80 MG TAB PO SCH (17:46)
[2017-08-11] MEDS: Metoprolol Tartrate TAB* 25 MG PO SCH ×2 (03:07→08:56)
[2017-08-11] MEDS: Acetaminophen TAB* 325 MG PO PRN ×3 (03:49→12:48)
[2017-08-11] MEDS: SODIUM BICARBONATE IV SCH (05:40)
[2017-08-11] MEDS: 1/2 NS IV SCH (05:40)
[2017-08-11] MEDS: D5W IV SCH (05:40)
[2017-08-11 06:14] LABS: Hematocrit 25 % (35-47); Hemoglobin 8.2 g/dl (12.0-16.0); Mean Corpuscular HGB Conc 33 g/dl (31-36); Mean Corpuscular Hemoglobin 34 pg (27-31); Mean Corpuscular Volume 101 fL (80-97); Mean Platelet Volume 9 um3 (7.4-10.4); Platelet Count 437 10^3/ul (150-450); Red Blood Count 2.45 10^6/ul (4.0-5.4); Red Cell Distribution Width 15 % (10.5-15); White Blood Count 22.9 10^3/ul (3.5-10.8)
[2017-08-11] MEDS: Vancomycin Random Level* NOTE FOLLOW UP SCH (06:19)
[2017-08-11] MEDS: Omeprazole CAP* 20 MG PO SCH ×2 (08:55→20:38)
[2017-08-11] MEDS: Insulin LISPRO* 1 UNITS UNIT SUBCUT SCH ×4 (08:55→20:38)
[2017-08-11] MEDS: Potassium Chlor TAB* 20 MEQ TAB.ER PO SCH (08:55)
[2017-08-11] MEDS: Aspirin Low Dose CHEW TAB* 81 MG PO SCH (08:56)
[2017-08-11] MEDS: Lanthanum CHEW TAB* 500 MG PO SCH ×3 (08:56→17:02)
[2017-08-11] MEDS: Heparin VIAL(*) 5000 UNITS/ML VIAL (FIVE THOUSAND) SUBCUT SCH ×2 (08:57→20:38)
[2017-08-11] MEDS: Ticagrelor* 90 MG TAB PO SCH ×2 (08:57→21:52)
[2017-08-11] MEDS: Mupirocin 2% OINT* TUBE TOPICAL SCH (08:57)
[2017-08-11] MEDS: Sevelamer TAB* 800 MG PO SCH ×3 (09:01→17:07)
[2017-08-11] MEDS: ZOSYN 3.375 GM Q12H per EXTENDED INFUSION IVPB SCH ×4 (09:02→19:46)
[2017-08-11] MEDS ORDERED: Potassium Chloride LIQUID* 20 MEQ PACKET PO ONE (09:25)
--- NOTE | 2017-08-11 09:37 | PN ---
Progress Note - Progress Note Date of Service: 08/11/17 Note: Progress Note -- Critical Care 24 hour events: -no overnight events; BP labile still but feels okay -started PD yesterday, ongoing 10hr a day -on bicarb infusion, afebrile. wbc improved. -no n/v/fever. wound care in progress at abscess site. Tele: NSR Vitals: Vital Signs Temp 98.8 F 08/10/17 22:55 Pulse 84 08/11/17 09:00 Resp 16 08/11/17 09:00 BP 83/69 08/11/17 09:00 Pulse Ox 97 08/11/17 09:00 Intake & Output 08/10/17 08/11/17 08/11/17 18:59 06:59 18:59 Intake Total 1264 741 Output Total 0 Balance 1264 741 Weight 208 lb 12.8 oz Intake: IV Fluids 424 436 ABX - ZOSYN 110 41 NS 149 0 sodium bicaRB 165 395 IVPB 55 ABX - ZOSYN 55 Oral 840 250 Output: Urine 0 Other: # Bowel Movements 1 Estimated Stool Amount Small O2/Vent: RA Infusions: 75meq bicarb in 1/2 ns at 50cc/hr -> 1/2 ns 50 Current Medications: Acetaminophen (Tylenol Tab*) 650 mg PO Q4H PRN PRN Reason: FEVER/PAIN Last Admin: 08/11/17 08:55 Dose: 650 mg Aspirin (Aspirin Low Dose Tab*) 81 mg PO DAILY [facility] Last Admin: 08/11/17 08:56 Dose: 81 mg Atorvastatin Calcium (Lipitor*) 80 mg PO 1700 [facility] Last Admin: 08/10/17 17:46 Dose: 80 mg Dextrose (D50w Syringe 50 Ml*) 12.5 gm IV PUSH .FOR FS < 60 - SS PRN PRN Reason: FS < 60 Heparin Sodium (Porcine) (Heparin Vial(*)) 5,000 units SUBCUT Q12HR [facility] Last Admin: 08/11/17 08:57 Dose: 5,000 units Vancomycin HCl 1,000 mg/ (Sodium Chloride) 250 mls @ 166.667 mls/hr IVPB DAILY PRN; Protocol PRN Reason: RANDOM LEVEL <20 Last Admin: 08/09/17 11:38 Dose: 166.667 mls/hr Piperacillin Sod/Tazobactam (Sod 3.375 gm/ Sodium Chloride) 100 mls @ 25 mls/ hr IVPB Q12H [facility] Last Admin: 08/11/17 09:02 Dose: 25 mls/hr Sodium Chloride (Ns 0.45% 1000 Ml Bag*) 1,000 mls @ 50 mls/hr IV PER RATE [facility] Insulin Human Lispro (Humalog*) 0 units SUBCUT ACHS [facility] PRN Reason: Protocol Last Admin: 08/11/17 08:55 Dose: 6 unit Lanthanum Carbonate (Fosrenol Chew Tab*) 1,000 mg PO TID WITH MEALS [facility] Last Admin: 08/11/17 08:56 Dose: Not Given Midodrine (Midodrine (Nf)) 5 mg PO Q6H [facility] PRN Reason: Protocol Morphine Sulfate (Morphine Inj (Syringe)*) 2 mg IV Q1H PRN PRN Reason: PAIN - SEVERE Mupirocin (Bactroban 2 % Oint*) 1 applic TOPICAL DAILY [facility] Last Admin: 08/11/17 08:57 Dose: 1 applic Nitroglycerin (Nitroglycerin Tab 0.4 Mg*) 0.4 mg SL Q5M PRN PRN Reason: ANGINA Omeprazole (Prilosec Cap*) 20 mg PO BID [facility] Last Admin: 08/11/17 08:55 Dose: 20 mg Ondansetron HCl (Zofran Inj*) 4 mg IV Q6H PRN PRN Reason: NAUSEA Oxycodone/Acetaminophen (Percocet 5/325 Tab*) 2 tab PO Q6H PRN PRN Reason: PAIN Last Admin: 08/09/17 16:21 Dose: 2 tab Pharmacy Consult (Zosyn Per Pharmacy*) 1 note FOLLOW UP .ZOSYN PER PHARMACY [facility] Pharmacy Consult (Vancomycin - Dialysis Dosing*) 1 note FOLLOW UP . [facility] Pharmacy Consult (Vancomycin Random Level*) 1 note FOLLOW UP DAILY@0600 [facility] Last Admin: 08/11/17 06:19 Dose: 1 note Potassium Chloride (Klor Con Er Tab*) 20 meq PO DAILY [facility] Last Admin: 08/11/17 08:55 Dose: 20 meq Potassium Chloride (Klor-Con Liquid*) 20 meq PO ONCE ONE Stop: 08/11/17 09:26 Sevelamer Carbonate (Renvela Tab*) 1,600 mg PO TID WITH MEALS [facility] Last Admin: 08/11/17 09:01 Dose: 1,600 mg Sodium Bicarbonate (Sodium Bicarbonate (Antacid)*) 650 mg PO Q8HR [facility] Ticagrelor (Brilinta*) 90 mg PO BID [facility] Last Admin: 08/11/17 08:57 Dose: 90 mg Physical Exam: General: awake, alert, no distress, no diaphoresis Head: normocephalic, atraumatic HEENT: no pallor, no icterus, moist mucous membranes Neck: soft, supple, no jvd, no stridor CVS: normal rate, regular, no murmur Resp: bilateral air entry, no rhales, no wheeze, no rhonchi, no acc muscle use Abdomen: soft, nontender, nondistended, BS+; left abd PD catheter+; right buttock induration/erythema, dressing in place Ext: pulses+, warm, no edema Skin: intact, no breakdown, no dryness Neuro: awake, alert, orientedx3, moving all extremities, no gross focal deficit Labs: Laboratory Results - last 24 hr 08/10/17 08/10/17 08/10/17 09:08 12:06 17:32 WBC 33.0 H RBC 2.81 L Hgb 9.4 L Hct 28 L MCV 100 H MCH 33 H MCHC 33 RDW 15 Plt Count 456 H MPV 9 Sodium Potassium Chloride Carbon Dioxide Anion Gap BUN Creatinine Est GFR ( Amer) Est GFR (Non-Af Amer) BUN/Creatinine Ratio Glucose POC Glucose (mg/dL) 291 H 303 H Calcium Random Vancomycin 08/10/17 08/11/17 08/11/17 20:48 05:46 05:46 WBC 22.9 H RBC 2.45 L Hgb 8.2 L Hct 25 L MCV 101 H MCH 34 H MCHC 33 RDW 15 Plt Count 437 MPV 9 Sodium 129 L Potassium 3.2 L Chloride 95 L Carbon Dioxide 16 L Anion Gap 18 H BUN 53 H Creatinine 6.00 H Est GFR ( Amer) 9.1 Est GFR (Non-Af Amer) 7.0 BUN/Creatinine Ratio 8.8 Glucose 170 H POC Glucose (mg/dL) 225 H Calcium 8.0 L Random Vancomycin 19.1 08/11/17 08:39 WBC RBC Hgb Hct MCV MCH MCHC RDW Plt Count MPV Sodium Potassium Chloride Carbon Dioxide Anion Gap BUN Creatinine Est GFR ( Amer) Est GFR (Non-Af Amer) BUN/Creatinine Ratio Glucose POC Glucose (mg/dL) 226 H Calcium Random Vancomycin Imaging: CT abd/pelvis 08/08 right buttock cellulitus/phelgmon+ EKG 08/08 NSR, inf III/AvF ST elevation with some Qwaves+ ekg 08/09 - nsr, inf qwaves+, st elev resolved Assessment: 67y F w/pmhx of DM, Anemia, HTN, GERD, ESRD on PD; comes to ER with friend for eval of right buttock wound. Patient initially had nausea/ vomiting approximately 11 days back, which got better, suspected GI illness. Then 9 days back her buttock started to hurt and a small lesion appears, no trauma noted at site. She subsequently developed a second small nodular lesion next to it. Diarrhea occurred 3-4x the following day. Poor po intake during episodes of nausea/vom and diarrhea. There was drainage for the past week from the buttock lesions and increasing pain and tenderness. In ER started on sepsis protocol. EKG showed STEMI Inf wall, s/p Cath with PCI to midRCA x1. CT abd/ pelvis with phlegmon of right buttock. -Septic Shock, now more severe sepsis -Right Buttock/Perirectal abscess; s/p debridement 08/09 -Inferior Wall STEMI of RCA, s/p PCI x1 -ESRD on PD -metabolic acidosis -anemia Plan: Neuro- stable. delirium prec. CVS- septic shock/severe sepsis. d/c bicarb drip after bag complete, start PO bicarb tabs. 1/2 NS at 50cc/hr. Start midodrine for low BPs 50mg q8h. Cont PD today. Cont IV abx zosyn/vanco. Warm and perfusing. Cont asa/brillinta/statin for Coronary stent. f/u ECHO. Hold metoprolol for now while Low BP, restart once BP improved and off midodrine. Resp- on RA, no distress. ID- afebrile, wbc 23k. Right buttock/perirectal abscess, s/p Debridement 08/09. Cultures from wound polymicrobial. Cont zosyn/vanco (day#4), dosing by pharmacy. GI- Right perirectal abscess. wound care. surgery following. Renal- ESRD on PD. PD today. Metabolic acidosis+ improving, started bicarb PO tabs, d/c IV bicarb infusion. K po 20meq x1. Heme- anemia, hg to 8s, no active bleeding. recheck tomorrow, if further lower may benefit from 1 unit prbc. plt okay. DAPT for CAD/STEMI. Endo- fingersticks achs. Musculsk- pressure ulcer prophlaxis. no pressure on right buttock. Wounds- wound care to right buttock post debridement. Wound care with packing as per surgery rec. Nutrition- advance diet DVT prophylaxis: scds, heparin sq GI prophylaxis: omeprazole po Central Line: no Arterial Line: no Key Cathetor: no Disposition: improving, could be transfer to surgical floor Code Status: full code Bora Yung MD Bail Bondsman (Electronically Signed)
[2017-08-11] MEDS ORDERED: CMCS - Midodrine (NF) 5 MG TAB PO SCH (10:00)
[2017-08-11] MEDS: traMADol TAB* 50 MG PO PRN ×2 (11:03→23:37)
[2017-08-11] MEDS: Sodium Bicarbonate (ANTACID)* 650 MG TAB PO SCH ×2 (12:48→20:39)
[2017-08-11] MEDS ORDERED: Midodrine (NF) 5 MG TAB PO SCH (15:00)
--- NOTE | 2017-08-11 15:20 | PN ---
Progress Note - Progress Note Date of Service: 08/11/17 Note: Surgery Progress: S: POD #2 s/p I&D and debridement Right buttock abscess. On IV Zosyn and Vanco. Dr. Yung's note reviewed. Patient seen earlier this a.m. ~ 1030. She c/o of ongoing pain in the buttock, but w/ some improvement. O: Vital Signs - 8 hr 08/11/17 08/11/17 08/11/17 07:30 08:00 08:01 Pulse Rate 77 81 80 Respiratory 16 23 17 Rate Blood Pressure 94/54 (mmHg) O2 Sat by Pulse 98 100 98 Oximetry 08/11/17 08/11/17 08/11/17 08:30 08:50 09:00 Pulse Rate 76 84 Respiratory 22 12 Rate Blood Pressure 83/69 (mmHg) O2 Sat by Pulse 98 97 97 Oximetry 08/11/17 08/11/17 08/11/17 09:30 10:00 10:30 Pulse Rate 81 80 82 Respiratory 26 16 Rate Blood Pressure 79/42 (mmHg) O2 Sat by Pulse 99 98 99 Oximetry 08/11/17 08/11/17 08/11/17 11:00 11:01 11:30 Pulse Rate 83 85 80 Respiratory 18 Rate Blood Pressure 94/44 (mmHg) O2 Sat by Pulse 98 100 99 Oximetry 08/11/17 08/11/17 08/11/17 12:00 12:01 12:30 Pulse Rate 76 77 Respiratory 22 19 24 Rate Blood Pressure 98/48 (mmHg) O2 Sat by Pulse 100 96 Oximetry 08/11/17 08/11/17 08/11/17 13:00 13:30 14:00 Pulse Rate 82 80 76 Respiratory 23 23 21 Rate Blood Pressure 127/62 88/52 (mmHg) O2 Sat by Pulse 100 98 98 Oximetry With the help of nsg, the right buttock wound was inspected. There is some persistent necrotic debris at the edges of the wound. There is expressible thin , cloudy drainage from the lateral buttock. This is very tender, as is the whole of the prasad-wound skin. There is still considerable induration. The deeper portion of the wound appears clean and without evidence of undrained collection. Overall the wound measures ~ 10 x 5 cm with depth of 5-6 cm. The wound was repacked with saline-moistened 4x4, and dry cover dsg placed. C&S: pend A/P: s/p I&D w/ debridement of right buttock abscess; stable, but with ongoing active infection, on appropriate abx coverage; cont current wound care; will follow daily.
[2017-08-11] MEDS: CMCS:Midodrine (NF) 5 MG TAB PO SCH ×2 (15:29→23:30)
[2017-08-11] MEDS: Atorvastatin* 80 MG TAB PO SCH (17:07)
[2017-08-11] MEDS: NS 0.45% 1000 ML BAG* 1,000 ML IV SCH (19:53)
[2017-08-12] MEDS: Sodium Bicarbonate (ANTACID)* 650 MG TAB PO SCH ×3 (05:18→21:36)
[2017-08-12] MEDS: Vancomycin Random Level* NOTE FOLLOW UP SCH (05:23)
[2017-08-12 05:36] LABS: Hematocrit 28 % (35-47); Hemoglobin 9.2 g/dl (12.0-16.0); Mean Corpuscular HGB Conc 33 g/dl (31-36); Mean Corpuscular Hemoglobin 34 pg (27-31); Mean Corpuscular Volume 101 fL (80-97); Mean Platelet Volume 9 um3 (7.4-10.4); Platelet Count 528 10^3/ul (150-450); Red Blood Count 2.73 10^6/ul (4.0-5.4); Red Cell Distribution Width 15 % (10.5-15); White Blood Count 28.5 10^3/ul (3.5-10.8)
[2017-08-12 05:49] LABS: EGFR Non-African American 7.7 (>60)
[2017-08-12] MEDS: Insulin LISPRO* 1 UNITS UNIT SUBCUT SCH ×4 (07:41→21:41)
[2017-08-12] MEDS: ZOSYN 3.375 GM Q12H per EXTENDED INFUSION IVPB SCH ×4 (08:03→20:00)
[2017-08-12] MEDS: CMCS:Midodrine (NF) 5 MG TAB PO SCH ×3 (08:03→21:42)
[2017-08-12] MEDS: Lanthanum CHEW TAB* 500 MG PO SCH ×3 (08:07→17:09)
[2017-08-12] MEDS ORDERED: Vancomycin(*) 1,000 MG in NS 0.9% 250 ML* 250 ML IVPB ONE (09:00)
[2017-08-12] MEDS: Sevelamer TAB* 800 MG PO SCH ×3 (09:33→17:14)
[2017-08-12] MEDS: Omeprazole CAP* 20 MG PO SCH ×2 (09:33→21:39)
[2017-08-12] MEDS: Heparin VIAL(*) 5000 UNITS/ML VIAL (FIVE THOUSAND) SUBCUT SCH ×2 (09:34→21:47)
[2017-08-12] MEDS: Aspirin Low Dose CHEW TAB* 81 MG PO SCH (09:34)
[2017-08-12] MEDS: Potassium Chlor TAB* 20 MEQ TAB.ER PO SCH (09:34)
[2017-08-12] MEDS: oxyCODONE/Acetamin 5/325 MG* TAB PO PRN (10:35)
[2017-08-12] MEDS: Mupirocin 2% OINT* TUBE TOPICAL SCH (10:39)
[2017-08-12] MEDS: Ticagrelor* 90 MG TAB PO SCH ×2 (11:35→21:38)
[2017-08-12] MEDS: NS 0.45% 1000 ML BAG* 1,000 ML IV SCH (12:58)
--- NOTE | 2017-08-12 16:32 | PN ---
Subjective Date of Service: 08/12/17 Interval History: Pain in rectal area only when she moves. She sleeps well. She hasn't been more than a few feet from her bed. She c/o the food is much too salty, otherwise would eat more. Objective Active Medications: Acetaminophen (Tylenol Tab*) 650 mg PO Q4H PRN PRN Reason: FEVER/PAIN Last Admin: 08/11/17 12:48 Dose: 650 mg Aspirin (Aspirin Low Dose Tab*) 81 mg PO DAILY [facility] Last Admin: 08/12/17 09:34 Dose: 81 mg Atorvastatin Calcium (Lipitor*) 80 mg PO 1700 [facility] Last Admin: 08/11/17 17:07 Dose: 80 mg Dextrose (D50w Syringe 50 Ml*) 12.5 gm IV PUSH .FOR FS < 60 - SS PRN PRN Reason: FS < 60 Heparin Sodium (Porcine) (Heparin Vial(*)) 5,000 units SUBCUT Q12HR [facility] Last Admin: 08/12/17 09:34 Dose: 5,000 units Vancomycin HCl 1,000 mg/ (Sodium Chloride) 250 mls @ 166.667 mls/hr IVPB DAILY PRN; Protocol PRN Reason: RANDOM LEVEL <20 Last Admin: 08/09/17 11:38 Dose: 166.667 mls/hr Piperacillin Sod/Tazobactam (Sod 3.375 gm/ Sodium Chloride) 100 mls @ 25 mls/ hr IVPB Q12H [facility] Last Admin: 08/12/17 08:03 Dose: 25 mls/hr Sodium Chloride (Ns 0.45% 1000 Ml Bag*) 1,000 mls @ 50 mls/hr IV PER RATE [facility] Last Admin: 08/12/17 12:58 Dose: 50 mls/hr Insulin Human Lispro (Humalog*) 0 units SUBCUT ACHS [facility] PRN Reason: Protocol Last Admin: 08/12/17 13:07 Dose: 6 unit Lanthanum Carbonate (Fosrenol Chew Tab*) 1,000 mg PO TID WITH MEALS [facility] Last Admin: 08/12/17 13:08 Dose: Not Given Midodrine (Midodrine (Nf)) 10 mg PO Q8H [facility] PRN Reason: Protocol Last Admin: 08/12/17 14:45 Dose: 10 mg Morphine Sulfate (Morphine Inj (Syringe)*) 2 mg IV Q1H PRN PRN Reason: PAIN - SEVERE Mupirocin (Bactroban 2 % Oint*) 1 applic TOPICAL DAILY [facility] Last Admin: 08/12/17 10:39 Dose: 1 applic Nitroglycerin (Nitroglycerin Tab 0.4 Mg*) 0.4 mg SL Q5M PRN PRN Reason: ANGINA Omeprazole (Prilosec Cap*) 20 mg PO BID [facility] Last Admin: 08/12/17 09:33 Dose: 20 mg Ondansetron HCl (Zofran Inj*) 4 mg IV Q6H PRN PRN Reason: NAUSEA Oxycodone/Acetaminophen (Percocet 5/325 Tab*) 2 tab PO Q6H PRN PRN Reason: PAIN Last Admin: 08/12/17 10:35 Dose: 2 tab Pharmacy Consult (Zosyn Per Pharmacy*) 1 note FOLLOW UP .ZOSYN PER PHARMACY [facility] Pharmacy Consult (Vancomycin - Dialysis Dosing*) 1 note FOLLOW UP . [facility] Pharmacy Consult (Vancomycin Random Level*) 1 note FOLLOW UP DAILY@0600 [facility] Last Admin: 08/12/17 05:23 Dose: 1 note Potassium Chloride (Klor Con Er Tab*) 20 meq PO DAILY [facility] Last Admin: 08/12/17 09:34 Dose: 20 meq Sevelamer Carbonate (Renvela Tab*) 1,600 mg PO TID WITH MEALS [facility] Last Admin: 08/12/17 13:06 Dose: 1,600 mg Sodium Bicarbonate (Sodium Bicarbonate (Antacid)*) 650 mg PO Q8HR [facility] Last Admin: 08/12/17 14:45 Dose: 650 mg Ticagrelor (Brilinta*) 90 mg PO BID [facility] Last Admin: 08/12/17 11:35 Dose: 90 mg Tramadol HCl (Ultram*) 25 mg PO Q12H PRN PRN Reason: PAIN - MODERATE TO SEVERE Last Admin: 08/11/17 23:37 Dose: 25 mg Vital Signs - 8 hr 08/12/17 08/12/17 08/12/17 10:35 11:18 13:25 Temperature 98.9 F Pulse Rate 72 Respiratory 17 16 17 Rate Blood Pressure 117/48 (mmHg) O2 Sat by Pulse 99 Oximetry Oxygen Devices in Use Now: None Appearance: Alert, partly up in bed. In fair spirits, otherwise looks comfortable. Eyes: No Scleral Icterus Neck: NL Appearance and Movements; NL JVP, No Thyroid Enlargement, Masses Respiratory: Symmetrical Chest Expansion and Respiratory Effort, Clear to Auscultation, Clear to Percussion Cardiovascular: RRR, No Edema, - - Loud murmur RSB may be transmitted bruit from R arm AV fistula. Extremities: No Edema, No Clubbing, Cyanosis, - Skin: No Rash or Ulcers, No Nodules or Sclerosis, - Neurological: Alert and Oriented x 3, NL Sensation Result Diagrams: 08/12/17 04:48 08/12/17 04:48 Microbiology and Other Data: Microbiology 08/10/17 08:30 Skin and Soft Tissue MRSA/MSSA (PCR - Final Abdomen Mrsa Negative S.aureus Negative Gram Stain - Final Wound Culture - Preliminary No Growth Day 1 08/09/17 15:00 Anaerobic Culture - Preliminary Wound - Abscess Gram Stain - Final 08/08/17 18:34 Nasal Screen MRSA (PCR)(JAMAL) - Final Nasal Mrsa Not Detected Assess/Plan/Problems-Billing Assessment: - Patient Problems (1) Rectal abscess Current Visit: Yes Status: Acute Comment: 08/09: "excisional debridement of R buttock ulcers x 2 and drainage of perirectal abcess". On pip/luis daniel and vanco. Not clear if she needs vanco. Nutiritional support important. I ordered calorie counts and spoke to the flat surfacer jewel 08/12. Prealbumin 08/13/17. Albumin 2.5 on 08/08/17. (2) ESRD (end stage renal disease) Current Visit: No Status: Acute Code(s): N18.6 - END STAGE RENAL DISEASE SNOMED Code(s): 03150365 Comment: on PD cycler. R arm AV fistula, was on HD in past. (3) Diabetes Current Visit: No Status: Acute Code(s): E11.9 - TYPE 2 DIABETES MELLITUS WITHOUT COMPLICATIONS SNOMED Code(s): 85733967 Comment: Add Lantus 15 U start 1700 hrs 08/12. Continue Lispro by SS. (4) ACS (acute coronary syndrome) Current Visit: Yes Status: Acute Code(s): I24.9 - ACUTE ISCHEMIC HEART DISEASE, UNSPECIFIED SNOMED Code(s): 281028502 Comment: S/P cardiac stent Dr. Paulino 08/09/17. (5) Hypotension Current Visit: No Status: Acute Comment: Midodrine started 08/11/17 3 PM.
[2017-08-12] MEDS: Atorvastatin* 80 MG TAB PO SCH (17:07)
--- NOTE | 2017-08-12 17:43 | PN ---
Progress Note - Progress Note Date of Service: 08/12/17 SOAP: Subjective: [POD #3. Day 3 of antibiotic therapy on Vanco and Zosyn. Patient seen and examined at bedside with Rodney Anguiano PA-C. Patient reports feeling better today. Pain is well controlled on Ultram however patient reports the pain medication makes her very sleepy. Patient states she is able to tolerate turn and positions with pain medications. ] Objective: [ Tmax temp 98.9F Vital Signs Temp 98.3 F 08/12/17 15:17 Pulse 87 08/12/17 15:17 Resp 16 08/12/17 15:17 BP 96/49 08/12/17 15:17 Pulse Ox 98 08/12/17 15:17 Intake & Output 08/11/17 08/12/17 08/12/17 18:59 06:59 18:59 Intake Total 948 500 721 Output Total 0 Balance 948 500 721 Weight 204 lb 8 oz Intake: IV Fluids 20 191 NS 20 191 IVPB 503 300 ABX - VANCOMYCIN 250 ABX - ZOSYN 110 50 sodium bicaRB 393 Oral 425 500 230 Output: Urine 0 Other: Estimated Void Medium Estimated Stool Amount Small General: Obese female laying supine in hospital bed. NAD. Cardiac: RRR. No murmurs, rubs or gallops. AV fistula bruit resonates to right upper sternal border. Lungs: Clear to auscultation in the anterior position. No rhonchi, rales or wheezes appreciated. Abdomen: Inspection reveals an obese abdomen. PD catheter in place without signs of swelling or hematoma. No signs of hernias or masses. + BS heard throughout in all four quadrants. Abdomen is soft with no tenderness to palpation. Extremities: Inspection reveals no lower leg edema b/l. No tenderness to palpation of the lower extremities b/l. Pedal pulses difficult to assess but checked earlier with doppler and intact per pt. Buttocks: Dressing in place of right buttocks. Dressing previously changed by nursing staff. Per nursing staff no signs of infection. Slowly healing. Laboratory Tests 08/12/17 08/12/17 04:48 04:48 WBC 28.5 H Hgb 9.2 L Hct 28 L C-Reactive Protein 196.21 H Fingerstick range 129-345 C/S still pending of wound culture. Assessment: [Ms. English is a 67 y/o female with significant PMH of diabetes mellitus, end stage renal disease receiving peritoneal dialysis, hypertension, GERD, s/p cardiac stent placement after STEMI who went to the OR on 08/09/17 for excisional debridement of R buttock ulcers and drainage of abscess. Patient is showing improvement. Vitals stable. Appears pain is manageable with pain medication. Plan: [Continue with pain medication as needed. Consider cutting dose in half considering patient is experiencing excessive sleepiness. Wound changes and packing changed at least daily or when dressing is soiled. Continue with IV antibiotic therapy. ]
[2017-08-12] MEDS: Insulin GLARGINE(*) 1 UNITS UNIT SUBCUT SCH (18:04)
[2017-08-12] MEDS: Ondansetron INJ* 2 MG/ML VIAL IV PRN (18:10)
[2017-08-13] MEDS: oxyCODONE/Acetamin 5/325 MG* TAB PO PRN ×3 (03:06→19:40)
[2017-08-13 05:29] LABS: EGFR Non-African American 7.7 (>60)
[2017-08-13 05:34] LABS: Hematocrit 26 % (35-47); Hemoglobin 8.5 g/dl (12.0-16.0); Mean Corpuscular HGB Conc 33 g/dl (31-36); Mean Corpuscular Hemoglobin 33 pg (27-31); Mean Corpuscular Volume 100 fL (80-97); Mean Platelet Volume 8 um3 (7.4-10.4); Platelet Count 506 10^3/ul (150-450); Red Blood Count 2.62 10^6/ul (4.0-5.4); Red Cell Distribution Width 15 % (10.5-15); White Blood Count 25.8 10^3/ul (3.5-10.8)
[2017-08-13] MEDS: Sodium Bicarbonate (ANTACID)* 650 MG TAB PO SCH ×3 (05:50→21:16)
[2017-08-13] MEDS: CMCS:Midodrine (NF) 5 MG TAB PO SCH ×3 (07:28→23:18)
[2017-08-13] MEDS: Vancomycin Random Level* NOTE FOLLOW UP SCH (07:29)
[2017-08-13] MEDS: Insulin LISPRO* 1 UNITS UNIT SUBCUT SCH ×4 (07:45→21:17)
[2017-08-13] MEDS: ZOSYN 3.375 GM Q12H per EXTENDED INFUSION IVPB SCH ×4 (07:51→19:41)
--- NOTE | 2017-08-13 08:34 | PN ---
Progress Note - Progress Note Date of Service: 08/13/17 SOAP: Subjective: She feels better today, less pain Tolerating some po Objective: Temp Pulse Resp BP Pulse Ox 97.2 F 80 16 89/48 98 08/13/17 07:26 08/13/17 07:26 08/13/17 07:26 08/13/17 07:26 08/13/17 07:26 PEX: Comfortable Right buttock abscess cavity is open and without evidence of purulence. There is some non-viable tissue with black eschar on the peripheral skin. There is no undrained pus and farley of cavity are pink and viable. Wound was repacked with moist NS gauze thin kerlex. Laboratory Results - last 24 hr 08/12/17 08/12/17 08/12/17 04:48 12:41 16:16 WBC RBC Hgb Hct MCV MCH MCHC RDW Plt Count MPV Sodium 128 L Potassium 3.6 Chloride 93 L Carbon Dioxide 17 L Anion Gap 18 H BUN 45 H Creatinine 5.52 H Est GFR ( Amer) 10.0 Est GFR (Non-Af Amer) 7.7 BUN/Creatinine Ratio 8.2 Glucose 129 H POC Glucose (mg/dL) 241 H 292 H Calcium 8.1 L C-Reactive Protein 196.21 H Prealbumin Cortisol 22.09 Random Vancomycin 15.8 08/12/17 08/13/17 08/13/17 20:58 04:59 04:59 WBC 25.8 H RBC 2.62 L Hgb 8.5 L Hct 26 L MCV 100 H MCH 33 H MCHC 33 RDW 15 Plt Count 506 H MPV 8 Sodium 128 L Potassium 3.5 Chloride 93 L Carbon Dioxide 19 L Anion Gap 16 H BUN 39 H Creatinine 5.53 H Est GFR ( Amer) 9.9 Est GFR (Non-Af Amer) 7.7 BUN/Creatinine Ratio 7.1 L Glucose 79 POC Glucose (mg/dL) 204 H Calcium 8.0 L C-Reactive Protein Prealbumin 6 L Cortisol Random Vancomycin 26.1 Assessment: S/P I and D right prasad-rectal abscess CAD s/p coronary stenting CRF on PD Plan: Continue dressing changes IV abx Follow wound carefully
[2017-08-13] MEDS: Lanthanum CHEW TAB* 500 MG PO SCH ×3 (09:38→17:41)
[2017-08-13] MEDS: Aspirin Low Dose CHEW TAB* 81 MG PO SCH (09:38)
[2017-08-13] MEDS: Sevelamer TAB* 800 MG PO SCH ×3 (09:38→17:59)
[2017-08-13] MEDS: Ticagrelor* 90 MG TAB PO SCH ×2 (09:43→21:16)
[2017-08-13] MEDS: Omeprazole CAP* 20 MG PO SCH ×2 (09:44→21:16)
[2017-08-13] MEDS: Potassium Chlor TAB* 20 MEQ TAB.ER PO SCH (09:44)
[2017-08-13] MEDS: Heparin VIAL(*) 5000 UNITS/ML VIAL (FIVE THOUSAND) SUBCUT SCH ×2 (09:48→21:17)
[2017-08-13] MEDS: Mupirocin 2% OINT* TUBE TOPICAL SCH (09:54)
--- NOTE | 2017-08-13 15:14 | PN ---
Subjective Date of Service: 08/13/17 Interval History: patient A+O x3 laying in bed. Reports she currently needs to be reposition and cant do it herself. She reports rectal pain but states it is well controlled No fevers or chills. Tolerating PO. No N/V. Denies CP or SOB. Objective Active Medications: Acetaminophen (Tylenol Tab*) 650 mg PO Q4H PRN PRN Reason: FEVER/PAIN Last Admin: 08/11/17 12:48 Dose: 650 mg Aspirin (Aspirin Low Dose Tab*) 81 mg PO DAILY [facility] Last Admin: 08/13/17 09:38 Dose: 81 mg Atorvastatin Calcium (Lipitor*) 80 mg PO 1700 [facility] Last Admin: 08/12/17 17:07 Dose: 80 mg Dextrose (D50w Syringe 50 Ml*) 12.5 gm IV PUSH .FOR FS < 60 - SS PRN PRN Reason: FS < 60 Heparin Sodium (Porcine) (Heparin Vial(*)) 5,000 units SUBCUT Q12HR [facility] Last Admin: 08/13/17 09:48 Dose: 5,000 units Vancomycin HCl 1,000 mg/ (Sodium Chloride) 250 mls @ 166.667 mls/hr IVPB DAILY PRN; Protocol PRN Reason: RANDOM LEVEL <20 Last Admin: 08/09/17 11:38 Dose: 166.667 mls/hr Piperacillin Sod/Tazobactam (Sod 3.375 gm/ Sodium Chloride) 100 mls @ 25 mls/ hr IVPB Q12H [facility] Last Admin: 08/13/17 07:51 Dose: 25 mls/hr Sodium Chloride (Ns 0.45% 1000 Ml Bag*) 1,000 mls @ 50 mls/hr IV PER RATE [facility] Last Admin: 08/12/17 12:58 Dose: 50 mls/hr Insulin Glargine (Lantus(*)) 15 units SUBCUT Q24H [facility] Last Admin: 08/12/17 18:04 Dose: 15 units Insulin Human Lispro (Humalog*) 0 units SUBCUT ACHS [facility] PRN Reason: Protocol Last Admin: 08/13/17 11:44 Dose: Not Given Lanthanum Carbonate (Fosrenol Chew Tab*) 1,000 mg PO TID WITH MEALS [facility] Last Admin: 08/13/17 11:38 Dose: Not Given Midodrine (Midodrine (Nf)) 10 mg PO Q8H [facility] PRN Reason: Protocol Last Admin: 08/13/17 07:28 Dose: 10 mg Morphine Sulfate (Morphine Inj (Syringe)*) 2 mg IV Q1H PRN PRN Reason: PAIN - SEVERE Mupirocin (Bactroban 2 % Oint*) 1 applic TOPICAL DAILY [facility] Last Admin: 08/13/17 09:54 Dose: 1 applic Nitroglycerin (Nitroglycerin Tab 0.4 Mg*) 0.4 mg SL Q5M PRN PRN Reason: ANGINA Omeprazole (Prilosec Cap*) 20 mg PO BID [facility] Last Admin: 08/13/17 09:44 Dose: 20 mg Ondansetron HCl (Zofran Inj*) 4 mg IV Q6H PRN PRN Reason: NAUSEA Last Admin: 08/12/17 18:10 Dose: 4 mg Oxycodone/Acetaminophen (Percocet 5/325 Tab*) 2 tab PO Q6H PRN PRN Reason: PAIN Last Admin: 08/13/17 09:47 Dose: 2 tab Pharmacy Consult (Zosyn Per Pharmacy*) 1 note FOLLOW UP .ZOSYN PER PHARMACY [facility] Pharmacy Consult (Vancomycin - Dialysis Dosing*) 1 note FOLLOW UP . [facility] Pharmacy Consult (Vancomycin Random Level*) 1 note FOLLOW UP DAILY@0600 [facility] Last Admin: 08/13/17 07:29 Dose: 1 note Potassium Chloride (Klor Con Er Tab*) 20 meq PO DAILY [facility] Last Admin: 08/13/17 09:44 Dose: 20 meq Sevelamer Carbonate (Renvela Tab*) 1,600 mg PO TID WITH MEALS [facility] Last Admin: 08/13/17 13:55 Dose: 1,600 mg Sodium Bicarbonate (Sodium Bicarbonate (Antacid)*) 650 mg PO Q8HR [facility] Last Admin: 08/13/17 13:57 Dose: 650 mg Ticagrelor (Brilinta*) 90 mg PO BID [facility] Last Admin: 08/13/17 09:43 Dose: 90 mg Tramadol HCl (Ultram*) 25 mg PO Q12H PRN PRN Reason: PAIN - MODERATE TO SEVERE Last Admin: 08/11/17 23:37 Dose: 25 mg Vital Signs - 8 hr 08/13/17 08/13/17 08/13/17 07:26 08:00 09:47 Temperature 97.2 F Pulse Rate 80 Respiratory 16 18 18 Rate Blood Pressure 89/48 (mmHg) O2 Sat by Pulse 98 Oximetry 08/13/17 08/13/17 11:26 13:53 Temperature 98.0 F Pulse Rate 86 Respiratory 16 16 Rate Blood Pressure 98/44 (mmHg) O2 Sat by Pulse 100 Oximetry Oxygen Devices in Use Now: None Appearance: obese chronically ill female laying in bed A+O x3 in NAD Eyes: No Scleral Icterus, PERRLA Respiratory: Symmetrical Chest Expansion and Respiratory Effort, Clear to Auscultation Cardiovascular: NL Sounds; No Murmurs; No JVD, RRR Abdominal: NL Sounds; No Tenderness; No Distention, - - obese Extremities: No Clubbing, Cyanosis Skin: - - rectal dressing - was not evaluated - surgeon just repacked and evaluated wound Neurological: Alert and Oriented x 3, NL Sensation Lines/Tubes/Other Access: Clean, Dry and Intact Peripheral IV Nutrition: Taking PO's Result Diagrams: 08/13/17 04:59 08/13/17 04:59 Microbiology and Other Data: Microbiology 08/10/17 08:30 Skin and Soft Tissue MRSA/MSSA (PCR - Final Abdomen Mrsa Negative S.aureus Negative Gram Stain - Final Wound Culture - Preliminary No Growth Day 1 08/09/17 15:00 Anaerobic Culture - Preliminary Wound - Abscess Gram Stain - Final 08/08/17 18:34 Nasal Screen MRSA (PCR)(JAMAL) - Final Nasal Mrsa Not Detected Assess/Plan/Problems-Billing Assessment: 67 yo female PMH of DM, anemia, GERD, HTN, ESRD on PD presents to the ER with c/o right buttock wound found to have an perirectal abscess, she met sepsis criteria, EKG showed STEMI Inf wall now is s/p cath to mid RCA with stent x1. - Patient Problems (1) Rectal abscess Comment: 08/09: "excisional debridement of R buttock ulcers x 2 and drainage of perirectal abcess". On pip/luis daniel and vanco. Nutritional support important. Continue calorie counts, pastoral assistant following. Prealbumin 6 08/13/17. Albumin 2.5 on 08/08/17. Surgery following daily (2) ACS (acute coronary syndrome) Comment: STEMI s/p PCI w/ cardiac stent to mid RCA with Dr. Paulino 08/09/17. Doing well no symptoms Continue Brillinta, Statin, ASA (3) Diabetes Comment: HgA1C 8.7 Increase Lantus to 18. Continue Lispro by SS. (4) ESRD (end stage renal disease) Comment: on PD cycler. R arm AV fistula, was on HD in past. Bicarb po (5) Hypotension Comment: Midodrine started 08/11/17 - BPs labile, asymptomatic. (6) DVT prophylaxis Comment: hep SQ Status and Disposition: inpatient. LOS > 2 days
[2017-08-13] MEDS: Atorvastatin* 80 MG TAB PO SCH (17:58)
[2017-08-13] MEDS: Insulin GLARGINE(*) 1 UNITS UNIT SUBCUT SCH ×2 (18:09→21:17)
[2017-08-14 05:53] LABS: EGFR Non-African American 7.6 (>60)
[2017-08-14 05:55] LABS: Hematocrit 26 % (35-47); Hemoglobin 8.7 g/dl (12.0-16.0); Mean Corpuscular HGB Conc 33 g/dl (31-36); Mean Corpuscular Hemoglobin 33 pg (27-31); Mean Corpuscular Volume 101 fL (80-97); Mean Platelet Volume 9 um3 (7.4-10.4); Platelet Count 476 10^3/ul (150-450); Red Blood Count 2.63 10^6/ul (4.0-5.4); Red Cell Distribution Width 15 % (10.5-15); White Blood Count 27.5 10^3/ul (3.5-10.8)
[2017-08-14] MEDS: oxyCODONE/Acetamin 5/325 MG* TAB PO PRN ×2 (06:09→16:14)
[2017-08-14] MEDS: Sodium Bicarbonate (ANTACID)* 650 MG TAB PO SCH ×3 (06:09→21:27)
[2017-08-14] MEDS: Vancomycin Random Level* NOTE FOLLOW UP SCH (06:30)
--- NOTE | 2017-08-14 08:31 | PN ---
Progress Note - Progress Note Date of Service: 08/14/17 Note: Surgery MsPreeti English c/o pain at the right buttock wound, though she says it is better than it was. She says she has a lot of pain with tape coming off, "it feels like the skin is coming off with the tape". Vital Signs 08/13/17 08/13/17 08/13/17 09:47 11:26 13:53 Temperature 98.0 F Pulse Rate 86 Respiratory 18 16 16 Rate Blood Pressure 98/44 (mmHg) O2 Sat by Pulse 100 Oximetry 08/13/17 08/13/17 08/13/17 15:21 19:34 19:40 Temperature 97.3 F 97.6 F Pulse Rate 81 83 Respiratory 16 16 16 Rate Blood Pressure 86/41 98/54 (mmHg) O2 Sat by Pulse 97 100 Oximetry 08/13/17 08/13/17 08/14/17 21:20 21:26 00:31 Temperature 98.5 F Pulse Rate 75 Respiratory 16 18 22 Rate Blood Pressure 97/50 (mmHg) O2 Sat by Pulse 98 Oximetry 08/14/17 08/14/17 04:16 06:09 Temperature 98.7 F Pulse Rate 84 Respiratory 22 16 Rate Blood Pressure 111/49 (mmHg) O2 Sat by Pulse 97 Oximetry Wound is ~8x4x4 cm with a tunnel that extends superiorly ~4-5 cm and a flap comprised of the skin at the lateral edge. The edges are necrotic, but the base is granulating. There is some thin murky drainage when the tunnel and flap are probed, but no undrained collections. Intake & Output 08/13/17 08/14/17 08/14/17 22:59 06:59 14:59 Intake Total 400 353 Output Total 0 Balance 400 353 Intake: IV Fluids 113 ABX - ZOSYN 113 Oral 400 240 Output: Urine 0 Other: Other Amount Description Patient is anuric, dialysis patient, provider aware. Laboratory Results - last 24 hr 08/13/17 08/13/17 08/13/17 11:41 16:52 20:45 WBC RBC Hgb Hct MCV MCH MCHC RDW Plt Count MPV Sodium Potassium Chloride Carbon Dioxide Anion Gap BUN Creatinine Est GFR ( Amer) Est GFR (Non-Af Amer) BUN/Creatinine Ratio Glucose POC Glucose (mg/dL) 122 H 246 H 184 H Calcium Random Vancomycin 08/14/17 08/14/17 05:03 05:03 WBC 27.5 H RBC 2.63 L Hgb 8.7 L Hct 26 L MCV 101 H MCH 33 H MCHC 33 RDW 15 Plt Count 476 H MPV 9 Sodium 127 L Potassium 3.6 Chloride 91 L Carbon Dioxide 21 L Anion Gap 15 H BUN 39 H Creatinine 5.61 H Est GFR ( Amer) 9.8 Est GFR (Non-Af Amer) 7.6 BUN/Creatinine Ratio 7.0 L Glucose 123 H POC Glucose (mg/dL) Calcium 8.3 L Random Vancomycin 22.5 A/P: Open wound after buttock abscess drainage. She still has a leukocytosis, and she would likely benefit from operative debridement and widening of the open area. I discussed with Dr. Gilmore who can take her to the OR tomorrow. Angel
[2017-08-14] MEDS: Insulin LISPRO* 1 UNITS UNIT SUBCUT SCH ×4 (08:48→21:42)
--- NOTE | 2017-08-14 08:51 | PN ---
Subjective Date of Service: 08/14/17 Interval History: Pt reports her pain is well controlled currently denying any pain. She denies SOB/CP. No fevers or chills. No N/V/D. No dizziness. Objective Active Medications: Acetaminophen (Tylenol Tab*) 650 mg PO Q4H PRN PRN Reason: FEVER/PAIN Last Admin: 08/11/17 12:48 Dose: 650 mg Aspirin (Aspirin Low Dose Tab*) 81 mg PO DAILY [facility] Last Admin: 08/13/17 09:38 Dose: 81 mg Atorvastatin Calcium (Lipitor*) 80 mg PO 1700 [facility] Last Admin: 08/13/17 17:58 Dose: 80 mg Dextrose (D50w Syringe 50 Ml*) 12.5 gm IV PUSH .FOR FS < 60 - SS PRN PRN Reason: FS < 60 Heparin Sodium (Porcine) (Heparin Vial(*)) 5,000 units SUBCUT Q12HR [facility] Last Admin: 08/13/17 21:17 Dose: 5,000 units Vancomycin HCl 1,000 mg/ (Sodium Chloride) 250 mls @ 166.667 mls/hr IVPB DAILY PRN; Protocol PRN Reason: RANDOM LEVEL <20 Last Admin: 08/09/17 11:38 Dose: 166.667 mls/hr Piperacillin Sod/Tazobactam (Sod 3.375 gm/ Sodium Chloride) 100 mls @ 25 mls/ hr IVPB Q12H [facility] Last Admin: 08/13/17 19:41 Dose: 25 mls/hr Insulin Glargine (Lantus(*)) 18 units SUBCUT Q24H [facility] Last Admin: 08/13/17 21:17 Dose: 18 units Insulin Human Lispro (Humalog*) 0 units SUBCUT ACHS [facility] PRN Reason: Protocol Last Admin: 08/14/17 08:48 Dose: Not Given Lanthanum Carbonate (Fosrenol Chew Tab*) 1,000 mg PO TID WITH MEALS [facility] Last Admin: 08/13/17 17:41 Dose: Not Given Midodrine (Midodrine (Nf)) 10 mg PO Q8H [facility] PRN Reason: Protocol Last Admin: 08/13/17 23:18 Dose: 10 mg Morphine Sulfate (Morphine Inj (Syringe)*) 2 mg IV Q1H PRN PRN Reason: PAIN - SEVERE Mupirocin (Bactroban 2 % Oint*) 1 applic TOPICAL DAILY [facility] Last Admin: 08/13/17 09:54 Dose: 1 applic Nitroglycerin (Nitroglycerin Tab 0.4 Mg*) 0.4 mg SL Q5M PRN PRN Reason: ANGINA Omeprazole (Prilosec Cap*) 20 mg PO BID [facility] Last Admin: 08/13/17 21:16 Dose: 20 mg Ondansetron HCl (Zofran Inj*) 4 mg IV Q6H PRN PRN Reason: NAUSEA Last Admin: 08/12/17 18:10 Dose: 4 mg Oxycodone/Acetaminophen (Percocet 5/325 Tab*) 2 tab PO Q6H PRN PRN Reason: PAIN Last Admin: 08/14/17 06:09 Dose: 2 tab Pharmacy Consult (Zosyn Per Pharmacy*) 1 note FOLLOW UP .ZOSYN PER PHARMACY [facility] Pharmacy Consult (Vancomycin - Dialysis Dosing*) 1 note FOLLOW UP . [facility] Pharmacy Consult (Vancomycin Random Level*) 1 note FOLLOW UP DAILY@0600 [facility] Last Admin: 08/14/17 06:30 Dose: 1 note Potassium Chloride (Klor-Con Liquid*) 20 meq PO DAILY [facility] Sevelamer Carbonate (Renvela Tab*) 1,600 mg PO TID WITH MEALS [facility] Last Admin: 08/13/17 17:59 Dose: 1,600 mg Sodium Bicarbonate (Sodium Bicarbonate (Antacid)*) 650 mg PO Q8HR [facility] Last Admin: 08/14/17 06:09 Dose: 650 mg Ticagrelor (Brilinta*) 90 mg PO BID [facility] Last Admin: 08/13/17 21:16 Dose: 90 mg Tramadol HCl (Ultram*) 25 mg PO Q12H PRN PRN Reason: PAIN - MODERATE TO SEVERE Last Admin: 08/11/17 23:37 Dose: 25 mg Vital Signs - 8 hr 08/14/17 08/14/17 04:16 06:09 Temperature 98.7 F Pulse Rate 84 Respiratory 22 16 Rate Blood Pressure 111/49 (mmHg) O2 Sat by Pulse 97 Oximetry Oxygen Devices in Use Now: None Appearance: chornically ill female A+O x3 laying in bed in NAD Eyes: No Scleral Icterus, PERRLA Ears/Nose/Mouth/Throat: NL Teeth, Lips, Gums Neck: NL Appearance and Movements; NL JVP Respiratory: Symmetrical Chest Expansion and Respiratory Effort, Clear to Auscultation Cardiovascular: NL Sounds; No Murmurs; No JVD, RRR, - - 1+ LE edema b/l le Abdominal: NL Sounds; No Tenderness; No Distention, - - OBESE - PD catheter intact w/o S+S of infection Extremities: No Clubbing, Cyanosis Neurological: Alert and Oriented x 3, NL Sensation Lines/Tubes/Other Access: Clean, Dry and Intact Peripheral IV Nutrition: Taking PO's Result Diagrams: 08/14/17 05:03 08/14/17 05:03 Microbiology and Other Data: Microbiology 08/10/17 08:30 Skin and Soft Tissue MRSA/MSSA (PCR - Final Abdomen Mrsa Negative S.aureus Negative Gram Stain - Final Wound Culture - Preliminary No Growth Day 1 08/09/17 15:00 Anaerobic Culture - Preliminary Wound - Abscess Gram Stain - Final 08/08/17 18:34 Nasal Screen MRSA (PCR)(JAMAL) - Final Nasal Mrsa Not Detected Assess/Plan/Problems-Billing Assessment: 67 yo female PMH of DM, anemia, GERD, HTN, ESRD on PD presents to the ER with c/o right buttock wound found to have an perirectal abscess, she met sepsis criteria, EKG showed STEMI Inf wall now is s/p cath to mid RCA with stent x1. - Patient Problems (1) Rectal abscess Comment: 08/09: "excisional debridement of R buttock ulcers x 2 and drainage of perirectal abcess". On pip/luis daniel and vanco. WBC climbing today - discussed with surgeon Dr. Grider who recommends returning to the OR (possibly tomorrow) for a debridement with wider margins. She has had no fevers and does not appear to be septic. Discussed with Cardiology d/t recent STEMI w/ bare metal stent on Brillinta - Dr. Paulino states the Brillinta can NOT be stopped. Notified Dr. Grider, the plan will be to take the pt to the OR (Dr. Gilmore) tomorrow for less invasive debridement. NPO p Midnight - hold HSQ p midnight Prealbumin 6 08/13/17. Nutritional support important. Continue calorie counts, crm marketing specialist following. Surgery following daily (2) ACS (acute coronary syndrome) Comment: STEMI s/p PCI w/ cardiac bare metal stent to mid RCA with Dr. Paulino 08/09/17. Doing well no symptoms - ok to DC tele monitoring. Continue Brillinta, Statin, ASA (3) Diabetes Comment: HgA1C 8.7 Increased Lantus to 18 on 08/13 d/t uncontrolled bloods sugars. Continue Lispro by SS. (4) ESRD (end stage renal disease) Comment: on PD cycler. R arm AV fistula, was on HD in past. Continue Bicarb po body shop supervisor in to see pt today. (5) Hypotension Comment: Midodrine started 08/11/17 - BPs labile, asymptomatic. (6) DVT prophylaxis Comment: hep SQ Status and Disposition: inpatient. LOS > 2 days
[2017-08-14] MEDS: Heparin VIAL(*) 5000 UNITS/ML VIAL (FIVE THOUSAND) SUBCUT SCH ×2 (09:46→21:41)
[2017-08-14] MEDS: Lanthanum CHEW TAB* 500 MG PO SCH ×3 (09:46→18:11)
[2017-08-14] MEDS: Sevelamer TAB* 800 MG PO SCH ×3 (09:46→18:57)
[2017-08-14] MEDS: Ticagrelor* 90 MG TAB PO SCH ×2 (09:46→21:26)
[2017-08-14] MEDS: Omeprazole CAP* 20 MG PO SCH ×2 (09:46→21:26)
[2017-08-14] MEDS: Potassium Chloride LIQUID* 20 MEQ PACKET PO SCH (09:46)
[2017-08-14] MEDS: CMCS:Midodrine (NF) 5 MG TAB PO SCH ×3 (09:46→23:13)
[2017-08-14] MEDS: Aspirin Low Dose CHEW TAB* 81 MG PO SCH (09:46)
[2017-08-14] MEDS: ZOSYN 3.375 GM Q12H per EXTENDED INFUSION IVPB SCH ×4 (09:46→20:58)
[2017-08-14] MEDS: Mupirocin 2% OINT* TUBE TOPICAL SCH (11:09)
[2017-08-14] MEDS: Atorvastatin* 80 MG TAB PO SCH (16:13)
[2017-08-14] MEDS: Insulin GLARGINE(*) 1 UNITS UNIT SUBCUT SCH (21:42)
[2017-08-14] MEDS ORDERED: Epoetin Alfa* 4,000 UNITS/ML VIAL SUBCUT ONE (23:00)
[2017-08-15 05:24] LABS: Hematocrit 27 % (35-47); Hemoglobin 8.8 g/dl (12.0-16.0); Mean Corpuscular HGB Conc 32 g/dl (31-36); Mean Corpuscular Hemoglobin 33 pg (27-31); Mean Corpuscular Volume 101 fL (80-97); Mean Platelet Volume 8 um3 (7.4-10.4); Platelet Count 459 10^3/ul (150-450); Red Cell Distribution Width 15 % (10.5-15); White Blood Count 25.7 10^3/ul (3.5-10.8)
[2017-08-15 05:34] LABS: EGFR Non-African American 7.6 (>60)
[2017-08-15] MEDS: Sodium Bicarbonate (ANTACID)* 650 MG TAB PO SCH ×3 (05:55→23:35)
[2017-08-15] MEDS: Vancomycin Random Level* NOTE FOLLOW UP SCH (05:57)
[2017-08-15 06:16] LABS: ABS Basophils 0.2 10^3/ul (0-0.2); ABS Eosinophils 0.5 10^3/ul (0-0.6); ABS Lymphocytes 2.3 10^3/ul (1.0-4.8); ABS Monocytes 0.6 10^3/ul (0-0.8); ABS Neutrophils 22.1 10^3/ul (1.5-7.7); ABS Nucleated RBC 0 10^3/ul; Eosinophil % 1.8 % (0-6); Nucleated Red Blood Cells % 0.2
[2017-08-15] MEDS: Insulin LISPRO* 1 UNITS UNIT SUBCUT SCH ×4 (07:46→21:29)
[2017-08-15] MEDS: Sevelamer TAB* 800 MG PO SCH ×3 (08:50→18:43)
[2017-08-15] MEDS ORDERED: Famotidine IV* 10 MG/ML 2 ML (20 mg) IV ONE (09:00)
[2017-08-15] MEDS: Mupirocin 2% OINT* TUBE TOPICAL SCH (09:30)
[2017-08-15] MEDS: Heparin VIAL(*) 5000 UNITS/ML VIAL (FIVE THOUSAND) SUBCUT SCH (09:31)
[2017-08-15] MEDS: Lanthanum CHEW TAB* 500 MG PO SCH ×3 (09:32→18:42)
[2017-08-15] MEDS: Potassium Chloride LIQUID* 20 MEQ PACKET PO SCH (09:32)
[2017-08-15] MEDS: oxyCODONE/Acetamin 5/325 MG* TAB PO PRN (09:33)
[2017-08-15] MEDS: Ticagrelor* 90 MG TAB PO SCH ×2 (09:33→21:29)
[2017-08-15] MEDS: CMCS:Midodrine (NF) 5 MG TAB PO SCH ×3 (09:33→21:28)
[2017-08-15] MEDS: Aspirin Low Dose CHEW TAB* 81 MG PO SCH (09:33)
[2017-08-15] MEDS: Omeprazole CAP* 20 MG PO SCH ×2 (09:34→21:28)
[2017-08-15] MEDS: ZOSYN 3.375 GM Q12H per EXTENDED INFUSION IVPB SCH ×4 (11:30→23:31)
[2017-08-15] MEDS ORDERED: Buffered Lidocaine 0.9% SYRIN* 5 ML/SYR SYRINGE INTRADERM ONE (13:51)
[2017-08-15] MEDS ORDERED: PROCHLORPERAZINE INJ 5 MG/ML 2 ML VIAL IV PRN (13:52)
[2017-08-15] MEDS ORDERED: Naloxone* 0.4 MG/ML 1 ML VIAL IV PRN (13:52)
[2017-08-15] MEDS ORDERED: DiMENhydriNATE IV* 50 MG/ML VIAL IV PUSH PRN (13:52)
[2017-08-15] MEDS ORDERED: fentaNYL* 50 MCG/ML 2 ML VIAL (100 MCG VIAL) IV PRN (13:52)
[2017-08-15] MEDS ORDERED: NS 0.45% 1000 ML BAG* 1,000 ML IV SCH (14:00)
[2017-08-15] MEDS ORDERED: fentaNYL* 50 MCG/ML 2 ML VIAL (100 MCG VIAL) ONE (14:17)
[2017-08-15] MEDS ORDERED: KETAMINE HCL* 50 MG/ML 10 ML VIAL ONE (14:17)
[2017-08-15] MEDS ORDERED: Midazolam* 1 MG/ML 10 ML VIAL (10 MG) ONE (14:17)
[2017-08-15] MEDS ORDERED: Ropivacaine (OR use only) 2 MG/ML 1 ML ONE (14:30)
[2017-08-15] MEDS ORDERED: Glycopyrrolate IV* 0.2 MG/ML 1 ML VIAL ONE (14:30)
--- NOTE | 2017-08-15 14:47 | PN ---
Subjective Date of Service: 08/15/17 Interval History: Ms. English was visited in the PACU and is distressed due to pain in her buttock and does not want further examination. Objective Active Medications: Acetaminophen (Tylenol Tab*) 650 mg PO Q4H PRN Aspirin (Aspirin Low Dose Tab*) 81 mg PO DAILY [facility] Atorvastatin Calcium (Lipitor*) 80 mg PO 1700 [facility] Dextrose (D50w Syringe 50 Ml*) 12.5 gm IV PUSH .FOR FS < 60 - SS PRN Dimenhydrinate (Dramamine Iv*) 12.5 mg IV PUSH ONCE PRN Fentanyl Citrate (Fentanyl*) 25 mcg IV Q5M PRN Heparin Sodium (Porcine) (Heparin Vial(*)) 5,000 units SUBCUT Q12HR [facility] Vancomycin HCl 1,000 mg/ (Sodium Chloride) 250 mls @ 166.667 mls/hr IVPB DAILY PRN; Protocol Piperacillin Sod/Tazobactam (Sod 3.375 gm/ Sodium Chloride) 100 mls @ 25 mls/ hr IVPB Q12H [facility] Lactated Ringer's (Lactated Ringers 1000 Ml Bag*) 1,000 mls @ 125 mls/hr IV PER RATE [facility] Sodium Chloride (Ns 0.45% 1000 Ml Bag*) 1,000 mls @ 0 mls/hr IV KVO [facility] Insulin Glargine (Lantus(*)) 18 units SUBCUT Q24H [facility] Insulin Human Lispro (Humalog*) 0 units SUBCUT ACHS [facility] Lanthanum Carbonate (Fosrenol Chew Tab*) 1,000 mg PO TID WITH MEALS [facility] Midodrine (Midodrine (Nf)) 10 mg PO Q8H [facility] Morphine Sulfate (Morphine Inj (Syringe)*) 2 mg IV Q1H PRN Morphine Sulfate (Morphine Inj (Syringe)*) 2 mg IV Q5M PRN Mupirocin (Bactroban 2 % Oint*) 1 applic TOPICAL DAILY [facility] Naloxone HCl (Narcan*) 0.08 mg IV Q2M PRN Nitroglycerin (Nitroglycerin Tab 0.4 Mg*) 0.4 mg SL Q5M PRN Omeprazole (Prilosec Cap*) 20 mg PO BID [facility] Ondansetron HCl (Zofran Inj*) 4 mg IV Q6H PRN Oxycodone/Acetaminophen (Percocet 5/325 Tab*) 2 tab PO Q6H PRN Pharmacy Consult (Zosyn Per Pharmacy*) 1 note FOLLOW UP .ZOSYN PER PHARMACY [facility] Pharmacy Consult (Vancomycin - Dialysis Dosing*) 1 note FOLLOW UP . [facility] Pharmacy Consult (Vancomycin Random Level*) 1 note FOLLOW UP DAILY@0600 [facility] Potassium Chloride (Klor-Con Liquid*) 20 meq PO DAILY [facility] Prochlorperazine Edisylate (Compazine Inj*) 2.5 mg IV ONCE PRN Sevelamer Carbonate (Renvela Tab*) 1,600 mg PO TID WITH MEALS [facility] Sodium Bicarbonate (Sodium Bicarbonate (Antacid)*) 650 mg PO Q8HR [facility] Ticagrelor (Brilinta*) 90 mg PO BID [facility] Tramadol HCl (Ultram*) 25 mg PO Q12H PRN Vital Signs: Temp Pulse Resp BP Pulse Ox 97.3 F 96 13 82/45 100 08/15/17 17:00 08/15/17 17:05 08/15/17 17:26 08/15/17 17:05 08/15/17 17:05 Oxygen Devices in Use Now: None Appearance: Female lying on her side in bed in PACU, very uncomfortable, most of exam deferred Respiratory: Symmetrical Chest Expansion and Respiratory Effort Neurological: Alert and Oriented x 3 Result Diagrams: 08/15/17 04:50 08/15/17 04:50 Microbiology and Other Data: . Assess/Plan/Problems-Billing Assessment: Ms. English is a 67 yo female PMH of DM, anemia, GERD, HTN, ESRD on PD presents to the ER with c/o right buttock wound found to have an perirectal abscess, she met sepsis criteria, EKG showed STEMI Inf wall now is s/p cath to mid RCA with stent x1. - Patient Problems (1) Rectal abscess Comment: - Returned to OR today. - Previously to OR on 08/09 for excisional debridement of R buttock ulcers x 2 and drainage of perirectal abcess. - Continue pip/luis daniel and vanco. - Prealbumin 6 08/13/17. Nutritional support important. Continue calorie counts, exhibitions and collections manager following. (2) ACS (acute coronary syndrome) Comment: - STEMI s/p PCI w/ cardiac bare metal stent to mid RCA with Dr. Paulino 08/09/17. - Continue Brillinta, Statin, ASA (3) Diabetes Comment: - BGs 160-200. HgA1C 8.7 - Increased Lantus to 18 on 08/13 d/t uncontrolled bloods sugars. Continue Lispro by SS. (4) Hypotension Comment: - Midodrine started 08/11/17 - BPs labile, asymptomatic. (5) ESRD (end stage renal disease) Comment: - Continue PD. (6) DVT prophylaxis Comment: - hep SQ (7) Full code status Comment: Status and Disposition: Inpatient. LOS > 2 days
[2017-08-15] MEDS ORDERED: Bupivacaine 0.5% SDV PF* 10-30ML VIAL ONE (15:12)
[2017-08-15] MEDS ORDERED: Propofol* 10 MG/ML 20 ML BTL IV PUSH ONE (16:49)
[2017-08-15] MEDS ORDERED: Lidocaine 2% PF * 5 ML VIAL ONE (16:49)
--- NOTE | 2017-08-15 17:01 | BRIEFOPN ---
Brief Operative Note - Surgery Procedures: Procedures OPERATIVE REPORT PRE-OP: Right buttock abscess POST-OP: Same PROCEDURE: Incision and drainage right buttock abscess, debridement of non- viable tissue, pulse evacuation of abscess of cavity SURGEON: MD Mando ANESTHESIA:Local with MAC [place] ASST: IVF: min EBL: min SPECIMEN: Fluid for gram stain and culture DRAIN: none-Packed with 3 Kerlex 4 inch moist wraps WOUND CLASS:4 COMPLICATIONS: none TO PACU
[2017-08-15] MEDS ORDERED: EPHEDrine (Pressors)* 50 MG/ML VIAL ONE (17:10)
[2017-08-15] MEDS ORDERED: Insulin LISPRO* 1 UNITS UNIT SUBCUT ONE (17:23)
[2017-08-15] MEDS ORDERED: Morphine INJ* 4 MG/ML 1 ML CARPUJECT IV ONE (17:24)
[2017-08-15] MEDS: Morphine INJ* 2 MG/ML 1 ML CARPUJECT IV PRN ×2 (17:26→17:31)
[2017-08-15] MEDS ORDERED: Silver Nitrate/Potassium Nitr* 1 EA STICK ONE (18:05)
[2017-08-15] MEDS: Atorvastatin* 80 MG TAB PO SCH (18:42)
[2017-08-15] MEDS ORDERED: Morphine INJ* 2 MG/ML 1 ML CARPUJECT ONE (20:35)
[2017-08-15] MEDS ORDERED: NS 0.9% 1000 ML* 1,000 ML IV ONE (21:13)
--- NOTE | 2017-08-15 21:28 | PN ---
Progress Note - Progress Note Date of Service: 08/15/17 SOAP: Subjective: CTSP in PACU about 6PM for some bleeding from the buttock dressing. She also had some transient hypotension and tachyardia managed by anesthesia with some IV fluid Objective: Right buttock dressing saturated with serosanguinous drainage but there is some oozing from the skin edges superiorly on the wound. Silver nitrate was applied and pressure placed with control of bleeding Assessment: [] Plan: D/W with Lidia Warner on hospitalist service--with her recent cardiac history and overall condition, will tx to ICU and transfuse at least one unit of PRBC's. Continue present wound care. Recheck H/H after transfusion
[2017-08-15] MEDS: Insulin GLARGINE(*) 1 UNITS UNIT SUBCUT SCH (21:29)
[2017-08-16] MEDS ORDERED: NS 0.9% 500 ML* 500 ML IV ONE (01:30)
[2017-08-16 01:38] LABS: Hematocrit 28 % (35-47); Hemoglobin 8.8 g/dl (12.0-16.0); Mean Corpuscular HGB Conc 32 g/dl (31-36); Mean Corpuscular Hemoglobin 32 pg (27-31); Mean Corpuscular Volume 101 fL (80-97); Mean Platelet Volume 8 um3 (7.4-10.4); Platelet Count 375 10^3/ul (150-450); Red Blood Count 2.72 10^6/ul (4.0-5.4); Red Cell Distribution Width 16 % (10.5-15); White Blood Count 31.9 10^3/ul (3.5-10.8)
--- NOTE | 2017-08-16 03:35 | PN ---
Progress Note - Progress Note Date of Service: 08/16/17 Note: Nursing called reporting hypotension, systolic 70-80s w/ MAP in the 50s, despite 1 unit pRBCs & total 1500cc NS boluses after OR for debridement of a prasad-rectal abscess. Mrs English who typically has low blood pressures, awakens easily & is AA&O to PPS. She denies complaints, other than being awoken. She has DM w/ ESRD-PD, so further blood and fluid boluses put her at risk of volume overload. Case was reviewed with Thaddeus Addison MD critical-care who recommended peripheral norepinephrine after consultation with anesthesia to determine if any residual anesthesia effect could account. James Booker MD anesthesiology who attended during the procedure reports use of fentanyl, versed, & ketamine which he would more expect to raise her BP rather than lower as ketamine causes catecholamine release. As such, we will obtain a STAT H&H to assess for acute blood loss anemia, check an ECG as she recently had a STEMI s/p mid-RCA bare metal stent, and initiate norepinepherine peripherally with goal MAP of =>60.
[2017-08-16] MEDS ORDERED: Norepinephrine 16MCG/ML IVPRE* 4,000 MCG/250 ML BAG IV SCH (04:00)
[2017-08-16 05:17] LABS: Hematocrit 25 % (35-47); Hemoglobin 8.3 g/dl (12.0-16.0); Mean Corpuscular HGB Conc 33 g/dl (31-36); Mean Corpuscular Hemoglobin 34 pg (27-31); Mean Corpuscular Volume 101 fL (80-97); Mean Platelet Volume 8 um3 (7.4-10.4); Platelet Count 374 10^3/ul (150-450); Red Blood Count 2.47 10^6/ul (4.0-5.4); Red Cell Distribution Width 16 % (10.5-15); White Blood Count 27.8 10^3/ul (3.5-10.8)
[2017-08-16] MEDS: Vancomycin Random Level* NOTE FOLLOW UP SCH (06:44)
[2017-08-16] MEDS: CMCS:Midodrine (NF) 5 MG TAB PO SCH ×2 (08:04→15:02)
[2017-08-16] MEDS: oxyCODONE/Acetamin 5/325 MG* TAB PO PRN (08:05)
[2017-08-16] MEDS: ZOSYN 3.375 GM Q12H per EXTENDED INFUSION IVPB SCH ×4 (08:20→20:37)
[2017-08-16] MEDS: Omeprazole CAP* 20 MG PO SCH ×2 (08:23→21:32)
[2017-08-16] MEDS: Ticagrelor* 90 MG TAB PO SCH ×2 (08:25→21:32)
[2017-08-16] MEDS: Lanthanum CHEW TAB* 500 MG PO SCH ×4 (08:50→19:59)
[2017-08-16] MEDS: Sodium Bicarbonate (ANTACID)* 650 MG TAB PO SCH ×3 (08:51→22:51)
[2017-08-16] MEDS: Sevelamer TAB* 800 MG PO SCH ×3 (08:53→19:44)
[2017-08-16] MEDS: Potassium Chloride LIQUID* 20 MEQ PACKET PO SCH (09:02)
[2017-08-16] MEDS: Mupirocin 2% OINT* TUBE TOPICAL SCH (09:02)
[2017-08-16] MEDS: Aspirin Low Dose CHEW TAB* 81 MG PO SCH (09:02)
[2017-08-16] MEDS ORDERED: Vancomycin(*) 1,000 MG in NS 0.9% 250 ML* 250 ML IVPB ONE (09:30)
[2017-08-16] MEDS: Insulin LISPRO* 1 UNITS UNIT SUBCUT SCH ×4 (10:28→21:31)
--- NOTE | 2017-08-16 11:16 | PN ---
Progress Note - Progress Note Date of Service: 08/16/17 SOAP: Subjective: Patient seen at 0800 this morning She is awake and alert this morning-pain seems adequately controlled. Events of night reviewed-she received one unit of PRBC's Objective: Temp Pulse Resp BP Pulse Ox 97.9 F 111 28 92/50 94 08/16/17 07:38 08/16/17 11:00 08/16/17 11:00 08/16/17 11:00 08/16/17 11:00 PEX: Posterior right butttock dressing in place and packed. There is serosanguinous drainage, some sanguinous drainage at the superior aspect of the packing. No surrounding cellulitis and the skin is viable No odor Preliminary cultures noted Assessment: Right buttock abscess/soft tissue infection s/p I and D and debridement S/P LA with stenting on Brilinta and ASA Ida-procedural blood loss. Plan: No plans for packing change today-will evaluate at bedside tomorrow AM and may require return trip to OR. She remains on Brilinta and some bleeding expected--there is a large amount of exposed raw tisssue-follow H and H and may need more transfusion. Continue IV abx and await cultures Hold heparin All of above discussed with Dr. Addison
--- NOTE | 2017-08-16 13:57 | OP ---
DATE OF OPERATION: 08/15/17 - ROOM #ICU-09 DATE OF : 54 SURGEON: Graeme Gilmore MD ANESTHESIOLOGIST: Dr. Booker. ANESTHESIA: Local monitored anesthesia care. PRE-OP DIAGNOSIS: Right buttock abscess, recently incised and drained. POST-OP DIAGNOSES: 1. Right buttock abscess, recently incised and drained. 2. Large amount of nonviable subcutaneous fat with several pockets of undrained purulence. OPERATIVE PROCEDURE: 1. Exam under anesthesia of right buttock abscess/cavity. 2. Incision and drainage of right buttock abscesses. 3. Debridement of subcutaneous necrotic fat and skin. ESTIMATED BLOOD LOSS: 100 mL. IV FLUIDS: 400 mL. SPECIMENS: Fluids for Gram stain and culture. DRAINS: None. The wounds were packed with 3 moist 4 inch Kerlix gauze and covered with ABD pads. BRIEF HISTORY: Ms. Amita English is a 67-year-old woman with multiple medical issues including chronic renal insufficiency on peritoneal dialysis, who recently had a myocardial infarction requiring stent placement. She is on Brilinta and aspirin as well as subcutaneous heparin. Simultaneous to the myocardial infarction, she also had developed a right buttock abscess most likely due to pressure which was incised and drained in the operating room 6 days ago. She has been undergoing packing changes since that time, although she has remained afebrile she has had a persistently elevated white blood cell count. Cultures have returned as no growth. She is continued on IV antibiotics. On exam at the bedside, there appears to be some more evidence of purulent drainage and nonviable tissue and due to its size and location and inability to exactly examine this at the bedside, our plan is she is now to be taken to the operating room for an exam under anesthesia with probable further debridement and/or incision and drainage of any remaining un-drained pockets of abscess/pus. The procedure was discussed with the patient and she understands that she is extremely high risk in light of her recent cardiac history as well as her renal insufficiency and diabetes. In addition, we are unable to stop the Brilinta and the aspirin. She has increased risk for bleeding and she is well aware of this. We feel that the benefits, however, will still outweigh the risks in light of this persisted infection and concerns about the sepsis and she is willing to proceed and gives her consent. DESCRIPTION OF PROCEDURE: Written informed consent was obtained, the right buttock was marked with indelible ink and the patient had already been on preoperative antibiotics. She was taken to the operating room, placed in the left lateral decubitus position with the right leg passed over the left leg. The right buttock and thigh and lower back were prepped and draped in usual sterile fashion. Time-out verification was completed. 0.25% Marcaine plain was then infiltrated extensively into the area. On examination, it was obvious that there were two deeper crevasses into the right of midline extended deeper, although this appeared to be fairly clean granulation tissue. However on exam, there was quite a bit of nonviable skin and subcutaneous fat along the edges, which were sharply debrided with cautery. Once I had done this it was realized that there were several more pockets and nonviable tissue just below the skin extending laterally and superiorly to the point where this was the large amount of purulent turbid fluid that I excised significantly more of the skin in this area to unroof this area to adequately drain and debride it. There was a layer of nonviable tissue which was removed with cautery, but the underlying fat at this point, however, did appear to be viable. This also extended somewhat more inferiorly and similarly I needed to take more skin to expose this and achieve adequate drainage and subsequent packing. Once I felt that I debrided and drained this area adequately, I used the Pulsavac 3 L of saline to irrigate well. I did take cultures in one of the deeper cavities for Gram stain and culture. Once this was completed, the pressure was contained and there was one area where I needed to place a 3-0 Vicryl suture for hemostasis. The skin edges were controlled with some cautery as well as packing. Next, three separate moist 4-inch Kerlix gauze were unrolled and wrapped and packed into the entire wound. It was covered with gauze and ABD pads and the subsequent mesh panty for maintenance of position of the dressing. The patient tolerated the procedure well, was taken to the recovery room in stable condition. [id number]/[facility] #: [id number] [facility] CENTERJames
[2017-08-16] MEDS: Atorvastatin* 80 MG TAB PO SCH ×2 (19:47→19:59)
[2017-08-16] MEDS: Insulin GLARGINE(*) 1 UNITS UNIT SUBCUT SCH (21:30)
--- NOTE | 2017-08-16 22:43 | PN ---
Progress Note - Progress Note Date of Service: 08/16/17 Note: Nursing called reporting hypotension 70/50s w/ MAP 51. Upon evaluation, patient awakens but remains somnolent. She is oriented to person & place, but not situation and drifts very quickly back to sleep. Ordered restart of norepinephrine GTT, titrate to MAP of =>65.
[2017-08-16] MEDS: NS 0.9% 250 ML* 246 ML with Norepinephrine VIAL* 4 MG IV SCH ×2 (22:58)
[2017-08-17] MEDS: CMCS:Midodrine (NF) 5 MG TAB PO SCH ×2 (00:19→10:52)
[2017-08-17 05:05] LABS: Hematocrit 26 % (35-47); Hemoglobin 8.5 g/dl (12.0-16.0); Mean Corpuscular HGB Conc 33 g/dl (31-36); Mean Corpuscular Hemoglobin 33 pg (27-31); Mean Corpuscular Volume 102 fL (80-97); Mean Platelet Volume 9 um3 (7.4-10.4); Platelet Count 445 10^3/ul (150-450); Red Blood Count 2.58 10^6/ul (4.0-5.4); Red Cell Distribution Width 16 % (10.5-15); White Blood Count 28.7 10^3/ul (3.5-10.8)
[2017-08-17 05:06] LABS: ABS Basophils 0.2 10^3/ul (0-0.2); ABS Eosinophils 0.3 10^3/ul (0-0.6); ABS Monocytes 1.5 10^3/ul (0-0.8); ABS Neutrophils 24.7 10^3/ul (1.5-7.7); ABS Nucleated RBC 0.1 10^3/ul; Nucleated Red Blood Cells % 0.4
[2017-08-17 05:12] LABS: EGFR Non-African American 8.9 (>60)
[2017-08-17] MEDS ORDERED: Metoprolol Tartrate IV* 1 MG/ML 5 ML VIAL ONE (05:51)
[2017-08-17] MEDS ORDERED: Thiamine IV* 100 MG/ML 2 ML VIAL IV SCH (06:00)
[2017-08-17] MEDS ORDERED: Vancomycin(*) 1,250 MG IV x ONCE IVPB ONE ×2 (06:00)
[2017-08-17] MEDS ORDERED: Amiodarone IV VIAL* 50 MG/ML 3 ML VIAL (150 MG) SLOW PUSH ONE (06:00)
[2017-08-17] MEDS ORDERED: Amiodarone 360 MG IVPREMIX* 360 MG/200 ML BAG IV ONE (06:07)
[2017-08-17] MEDS ORDERED: NS 0.9% 1000 ML* 1,000 ML IV SCH (06:30)
[2017-08-17] MEDS: Sodium Bicarbonate (ANTACID)* 650 MG TAB PO SCH ×3 (06:37→21:30)
[2017-08-17] MEDS: Thiamine TAB* 100 MG TAB PO SCH ×2 (06:39→10:54)
[2017-08-17] MEDS: Amiodarone 150 MG IVPREMIX* 150 MG/100 ML BAG IV ONE ×2 (06:39→06:45)
[2017-08-17] MEDS: Amiodarone IV VIAL* 0 ML ONE (06:39)
[2017-08-17] MEDS: NS 0.9% 250 ML* 246 ML with Norepinephrine VIAL* 4 MG IV SCH ×2 (06:41)
[2017-08-17] MEDS: Amiodarone 360 MG IVPREMIX* 360 MG/200 ML BAG IV SCH ×3 (06:48→21:34)
[2017-08-17] MEDS ORDERED: Lidocaine 2% (CARDIAC)* 20 MG/ML 5 ML SYRINGE (100 MG) INJ ONE (06:58)
[2017-08-17] MEDS ORDERED: LORazepam INJ* 2 MG/ML 1 ML VIAL ONE (09:04)
[2017-08-17] MEDS: fentaNYL* 50 MCG/ML 2 ML VIAL (100 MCG VIAL) ONE ×2 (09:13→14:45)
[2017-08-17] MEDS: Ondansetron INJ* 2 MG/ML VIAL IV PRN (09:14)
[2017-08-17] MEDS: Lanthanum CHEW TAB* 500 MG PO SCH ×3 (10:53→18:54)
[2017-08-17] MEDS: Sevelamer TAB* 800 MG PO SCH ×3 (10:53→18:54)
[2017-08-17] MEDS: Mupirocin 2% OINT* TUBE TOPICAL SCH (10:53)
[2017-08-17] MEDS: Aspirin Low Dose CHEW TAB* 81 MG PO SCH (10:53)
[2017-08-17] MEDS: Omeprazole CAP* 20 MG PO SCH (10:54)
[2017-08-17] MEDS: Ticagrelor* 90 MG TAB PO SCH ×2 (10:54→21:29)
[2017-08-17] MEDS: Potassium Chloride LIQUID* 20 MEQ PACKET PO SCH (10:54)
[2017-08-17] MEDS: ZOSYN 3.375 GM Q12H per EXTENDED INFUSION IVPB SCH ×4 (11:25→19:57)
[2017-08-17] MEDS ORDERED: Ondansetron INJ* 2 MG/ML VIAL IV PRN (11:39)
[2017-08-17] MEDS: Insulin LISPRO* 1 UNITS UNIT SUBCUT SCH ×4 (11:49→21:21)
[2017-08-17] MEDS ORDERED: Perflutren Lipid Microsphere* 3 ML VIAL ONE (11:59)
--- NOTE | 2017-08-17 13:25 | ECHO ---
Patient: NASIMA JIMENEZ [facility] Rec#: [id number] : 1950 Date: 08/17/2017 Age: 67y Height: 165.1 cm / 65.0 in Weight: 85.73 kg / 188.9 lbs Sex: F BSA: 1.93 Room#: ICU 9 Admit Date#: 08/08/2017 Type: Inpatient Referring: Eleuterio Feng MD Reading: Eleuterio Feng MD Disability Counselor: Griselda Diaz[facility] Transthoracic Echocardiogram Indication: Hypotension BP: 60/37 HR: 100 Rhythm: NSR Findings History: S/P STEMI, PCI, sepsis, ESRD, DM, Technical Comments: The study is technically limited due to poor acoustic windows. Left Ventricle: The left ventricular chamber size is normal. Mild to moderate concentric left ventricular hypertrophy is observed. There are multiple regional wall motion abnormalities. The apical wall appears markedly hypokinetic . The anteroseptal wall also appears markedly hypokinetic. (Suboptimal imaging in general, even with contrast). There is moderately decreased left ventricular systolic function. The estimated ejection fraction is 35-40%. Abnormal left ventricular diastolic filling is observed, consistent with impaired relaxation. Left Atrium: The left atrium is mild to moderately dilated. Right Ventricle: The right ventricular chamber size and systolic function are within normal limits. The right ventricle wall thickness is mildly increased. Right Atrium: The right atrium appears normal. Aortic Valve: The aortic valve structure is not well visualized. There is no evidence of aortic valve thickening. There is no evidence of aortic regurgitation. There is no evidence of aortic stenosis. Mitral Valve: There is mitral annular calcification. The mitral valve leaflets are mildly thickened. There is no evidence of mitral regurgitation. There is no evidence of mitral stenosis. Tricuspid Valve: The tricuspid valve leaflets are not thickened. There is trace tricuspid regurgitation. Unable to estimate the right ventricular systolic pressure. Pulmonic Valve: The pulmonic valve structure is not well visualized. There is no evidence of pulmonic valve thickening. There is no evidence of pulmonic regurgitation. Pericardium: There is no significant pericardial effusion. Aorta: There is borderline dilatation of the ascending aorta. There is no dilatation of the aortic arch. There is no dilation of the aortic root. Pulmonary Artery: The main pulmonary artery is not well visualized. Venous: The inferior vena cava is not visualized. Contrast: Definity was used to optimize study. A total of 4 ml was used Conclusions The study is technically limited due to poor acoustic windows. There are multiple regional wall motion abnormalities. There is moderately decreased left ventricular systolic function. The estimated ejection fraction is 35-40%. Abnormal left ventricular diastolic filling is observed, consistent with impaired relaxation. The left atrium is mild to moderately dilated. There is trace tricuspid regurgitation. Compared to report of study from 08/08/2017 the ovetrall LV systolic function is worse. The prior mitral regurgitation is not seen on current study (current study's poor quality may make assessment of the regurgitation less reliable). Measurements Name Value Normal Range RVIDd (AP) 2D 2.8 cm (0.9 - 2.6) RVDdMajor (2D) 2.7 cm (2.2 - 4.4) IVSd (2D) 1.5 cm (0.6 - 1) LVPWd (2D) 1.4 cm (0.6 - 1) LVIDd (2D) 3.6 cm (3.6 - 5.4) LVIDs (2D) 2 cm - LV FS (2D) 44 % (25 - 45) Aortic Annulus 2 cm (1.4 - 2.6) Ao root diameter (2D) 3.2 cm (2.1 - 3.5) Ascending Ao 3.5 cm (2.1 - 3.4) Aortic arch 3.2 cm (1.8 - 3.4) LA dimension (AP) 2D 5 cm (2.3 - 3.8) LAd ISD 4CH 6.5 cm (2.9 - 5.3) LA ISD 4CH W 5.9 cm (2.5 - 4.5) Name Value Normal Range MV E-wave Vmax 0.4 m/sec - MV deceleration time 92.1 msec - MV A-wave Vmax 0.9 m/sec - MV E:A ratio 0.4 ratio - LV lateral e' Vmax 0.07 m/sec - LV E:e' lateral ratio 6 ratio - Name Value Normal Range AV Vmax 1.4 m/sec - AV VTI 20 cm - AV peak gradient 8 mmHg - AV mean gradient 4.9 mmHg - LVOT Vmax 1 m/sec - LVOT VTI 14 cm - LVOT peak gradient 4 mmHg - LVOT mean gradient 1.9 mmHg - Name Value Normal Range RAP 8 mmHg - Name Value Normal Range PV Vmax 1.2 m/sec - PV peak gradient 6 mmHg -
[2017-08-17] MEDS ORDERED: Metoprolol Tartrate IV* 1 MG/ML 5 ML VIAL IV ONE (15:00)
--- NOTE | 2017-08-17 16:04 | PN ---
Progress Note - Progress Note Date of Service: 08/17/17 SOAP: Subjective: Pt seen adn examined. Events since my last visit with her reviewed. Case d/w CCM. S/p return to OR for additional debridement and drainage. No growth from abscess. Pt hypotensive on pressors. lying on L side with continued pain at L buttock. Oozing at wound site Objective: af tachycardic, hypotensive. no UO buttock: dressing changed. large open wound, foul-smelling. Nonfeculent some oozing at edges labs noted Assessment: s/p debridement, drainage. Plan: continue wound care daily abx
[2017-08-17] MEDS: Atorvastatin* 80 MG TAB PO SCH (18:54)
--- NOTE | 2017-08-17 18:57 | PN ---
Date of Service: 08/17/17 Critical Care Services: Problems include: 1. Delirium - much less agitated after starting fetanyl 2. ? septic shock - low BP and high lactate could represent septic shock ( although doubt) 3. Recent STEMI: EF is decreasing 4. Afib - onset this AM - reasolved on amiodarone infusion. 5. Perirectal abscess: being debrided regularly Vital Signs: Temp Pulse Resp BP SpO2 FiO2 97.5 F 103 29 75/29 99 95 Physical Exam: Gen: Somnolent - agitated and confused when awake Lungs: scaterred rhonchi Cardiac: No murmurs or rubs Abdomen:Not distended Extremities: nonpitting edema right calf (area of IOC insertion) Fluid Balance (Past 24 Hours): Daily output inaccurate for 08/17/2017 Labs: Laboratory Results - last 24 hr 08/16/17 08/17/17 08/17/17 20:44 04:45 04:45 WBC RBC Hgb Hct MCV MCH MCHC RDW Plt Count MPV Neut % (Auto) Lymph % (Auto) [place] % (Auto) Eos % (Auto) Baso % (Auto) Absolute Neuts (auto) Absolute Lymphs (auto) Absolute Monos (auto) Absolute Eos (auto) Absolute Basos (auto) Absolute Nucleated RBC Nucleated RBC % VBG pH VBG pCO2 VBG pO2 VBG HCO3 VBG O2 Saturation VBG Base Excess Sodium Potassium Chloride Carbon Dioxide Anion Gap BUN Creatinine Est GFR ( Amer) Est GFR (Non-Af Amer) BUN/Creatinine Ratio Glucose POC Glucose (mg/dL) 171 H Lactic Acid 4.5 H* Calcium Total Bilirubin AST ALT Alkaline Phosphatase Ammonia Total Creatine Kinase CK-MB (CK-2) Troponin I Total Protein Albumin Globulin Albumin/Globulin Ratio Procalcitonin Random Vancomycin 15.6 08/17/17 08/17/17 08/17/17 04:45 04:45 04:45 WBC 28.7 RBC 2.58 L Hgb 8.5 Hct 26 MCV 102 Plt Count 445 Sodium 131 L Potassium 4.0 Chloride 98 L Carbon Dioxide 15 L Anion Gap 18 H BUN 28 Creatinine 4.91 Est GFR ( Amer) 11.4 Est GFR (Non-Af Amer) 8.9 BUN/Creatinine Ratio 5.7 L Glucose 108 H POC Glucose (mg/dL) Lactic Acid Calcium 7.8 L Total Bilirubin 0.90 AST 89 H ALT 13 Alkaline Phosphatase 489 H Ammonia TNP Total Creatine Kinase 192 CK-MB (CK-2) 10.3 H Troponin I 0.20 Total Protein 5.5 L Albumin 1.8 L Globulin 3.7 Albumin/Globulin Ratio 0.5 L Procalcitonin Random Vancomycin 08/17/17 08/17/17 08/17/17 12:06 12:06 12:06 WBC RBC Hgb Hct MCV MCH MCHC RDW Plt Count MPV Neut % (Auto) Lymph % (Auto) [place] % (Auto) Eos % (Auto) Baso % (Auto) Absolute Neuts (auto) Absolute Lymphs (auto) Absolute Monos (auto) Absolute Eos (auto) Absolute Basos (auto) Absolute Nucleated RBC Nucleated RBC % VBG pH VBG pCO2 VBG pO2 VBG HCO3 VBG O2 Saturation VBG Base Excess Sodium Potassium Chloride Carbon Dioxide Anion Gap BUN Creatinine Est GFR ( Amer) Est GFR (Non-Af Amer) BUN/Creatinine Ratio Glucose POC Glucose (mg/dL) Lactic Acid 5.5 H* Calcium Total Bilirubin AST ALT Alkaline Phosphatase Ammonia 65 H Total Creatine Kinase 276 H CK-MB (CK-2) 17.1 H Troponin I 0.85 Total Protein Albumin Globulin Albumin/Globulin Ratio Procalcitonin Random Vancomycin Studies: ECHO: several akinetic areas in left ventricle. Appears more marked when compared to last study. Nutrition: Inadequate Impression: The combinaion of ongoing problems (hypotension, progressive LV dysfunction, delirium, Afib, lactic acidosis, chronic renal failure) is very worrisome. Thiamine deficiency would explain the mental confusion, tachyarrhythmias, and elevated lactate levels. Plan: Start empiric Rx with thiamine - 100 mgs daily (serum thiamine levels unavailable on a timely basis), and continue broad-spectrum empiric antibiotic coverage Critical Care Time: 55 minutes
[2017-08-17] MEDS: fentaNYL* 50 MCG/ML 2 ML VIAL (100 MCG VIAL) IV SLOW PU PRN (20:00)
[2017-08-17] MEDS: Insulin GLARGINE(*) 1 UNITS UNIT SUBCUT SCH (21:25)
[2017-08-17] MEDS: NS 0.9% IV SCH ×2 (23:51)
[2017-08-17] MEDS: NOREPINEPHRINE IV SCH ×2 (23:51)
[2017-08-18] MEDS: fentaNYL* 50 MCG/ML 2 ML VIAL (100 MCG VIAL) IV SLOW PU PRN (03:45)
[2017-08-18] MEDS ORDERED: Succinylcholine* 20 MG/ML 10 ML VIAL ONE ×2 (04:55→05:01)
[2017-08-18] MEDS ORDERED: Etomidate* 2 MG/ML 20 ML VIAL (40 MG) ONE (05:00)
[2017-08-18] MEDS: Propofol* 100 ML ONE ×2 (05:00→18:42)
[2017-08-18 05:31] LABS: Hematocrit 24 % (35-47); INR 1.7 (0.77-1.02); Mean Corpuscular HGB Conc 30 g/dl (31-36); Mean Corpuscular Hemoglobin 32 pg (27-31); Mean Corpuscular Volume 109 fL (80-97); Mean Platelet Volume 8 um3 (7.4-10.4); Platelet Count 440 10^3/ul (150-450); Red Blood Count 2.17 10^6/ul (4.0-5.4); Red Cell Distribution Width 18 % (10.5-15); White Blood Count 44.1 10^3/ul (3.5-10.8)
[2017-08-18] MEDS ORDERED: Vasopressin* 100 UNITS in D5W 250 ML BAG IVPB SCH (06:05)
[2017-08-18 06:08] LABS: EGFR Non-African American 7.2 (>60)
[2017-08-18] MEDS ORDERED: VASOPRESSIN 20 UNITS/ML 1 ML VIAL ONE (06:13)
[2017-08-18] MEDS: Insulin LISPRO* 1 UNITS UNIT SUBCUT SCH ×3 (07:30→18:27)
[2017-08-18] MEDS: Sodium Bicarbonate (ANTACID)* 650 MG TAB PO SCH ×2 (07:53→14:00)
[2017-08-18] MEDS ORDERED: Famotidine IV * 20 MG in NS 0.9% 100 ML* 100 ML IVPB SCH (09:00)
[2017-08-18] MEDS ORDERED: Famotidine IV* 10 MG/ML 2 ML (20 mg) IV SLOW PU SCH (09:00)
--- NOTE | 2017-08-18 09:03 | RAD ---
Indication: Respiratory failure. Single frontal view of the chest performed at 0522 hours was reviewed. Comparison is made with previous exam dated February 20, 2016. No mediastinal shift is noted. ET tube is noted in the right mainstem bronchus. Left lung field is clear. Nasogastric tube is in place. IMPRESSION: ET TUBE IN RIGHT MAINSTEM BRONCHUS.
[2017-08-18] MEDS: ZOSYN 3.375 GM Q12H per EXTENDED INFUSION IVPB SCH ×2 (09:10)
[2017-08-18] MEDS: Sevelamer TAB* 800 MG PO SCH ×3 (09:20→18:34)
[2017-08-18] MEDS: Lanthanum CHEW TAB* 500 MG PO SCH ×3 (09:20→18:34)
[2017-08-18] MEDS: NOREPINEPHRINE IV SCH ×2 (09:42)
[2017-08-18] MEDS: NS 0.9% IV SCH ×2 (09:42)
--- NOTE | 2017-08-18 10:25 | PN ---
Progress Note - Progress Note Date of Service: 08/18/17 Note: Nursing reported patient becoming unresponsive. Upon arrival, Mrs English was unresponsive to deep sternal rub, unable to protect her airway. A MD [facility] was requested to emergently intubate. Labs drawn & sent. ECG negative for STEMI. Post intubation, blood pressures were difficult to obtain manually and when obtained were consistently 70-80/30s despite 30 of norepi GTT. Thaddeus Addison MD training associate was apprised and approved initiation of vasopressin. Further interventions as labwork & clinical picture evolves. Lungs: diminished with rales CV: RRR abdomen: soft non-tender, no indication of tenderness extremities: RLE oozing at site of I&O requiring dressing change x3 integument: sacral wound assessment: severe septic shock, continue ABX, very poor overall prognosis.
[2017-08-18] MEDS: Ticagrelor* 90 MG TAB PO SCH (10:45)
[2017-08-18] MEDS: Thiamine TAB* 100 MG TAB PO SCH (10:45)
[2017-08-18] MEDS: Aspirin Low Dose CHEW TAB* 81 MG PO SCH (10:45)
[2017-08-18] MEDS ORDERED: Anidulafungin* 200 MG in NS 0.9% 250 ML* 200 ML IVPB SCH (11:00)
--- NOTE | 2017-08-18 11:29 | RAD ---
INDICATION: Check ET tube placement COMPARISON: August 18, 2017 TECHNIQUE: An AP portable view obtained at 1015 hours is submitted. FINDINGS: Bones/Soft Tissues: There are no acute bony findings. The endotracheal tube is been pulled back and is now 2 cm above the verito Cardiomediastinal: The heart is normal in size. Lungs: There is airspace disease in left lung base. Pleura: There may be a small left-sided effusion. Other: None IMPRESSION: ET TUBE POSITION DESCRIBED. LEFT BASILAR AIRSPACE DISEASE/EFFUSION.
[2017-08-18] MEDS ORDERED: Clindamycin 600 MG IVPREMIX(* 600 MG/50 ML SDV IV SCH (12:00)
[2017-08-18 12:14] LABS: Monocytes % 6 % (0-7)
--- NOTE | 2017-08-18 12:26 | RAD ---
INDICATION: Leg pain COMPARISON: None TECHNIQUE: AP and lateral views were obtained. FINDINGS: There is osteopenia. There is no acute bony change. There is osteoarthritis about the knee and the ankle mortise. There is soft tissue edema. There are vascular calcifications. IMPRESSION: NO ACUTE BONY FINDINGS.
[2017-08-18] MEDS ORDERED: Cefepime 2 GM in Dextrose(*) 2 GM/50 ML BAG IV SCH ×2 (16:00→17:00)
[2017-08-18] MEDS: Amiodarone 360 MG IVPREMIX* 360 MG/200 ML BAG IV SCH (18:00)
[2017-08-18] MEDS: Amiodarone IV VIAL* 0 ML ONE (18:00)
[2017-08-18] MEDS: Mupirocin 2% OINT* TUBE TOPICAL SCH (18:27)
[2017-08-18] MEDS: Atorvastatin* 80 MG TAB PO SCH (18:34)
[2017-08-18] MEDS ORDERED: Propofol* 100 ML ONE (18:40)
[2017-08-18] MEDS ORDERED: PIPERACILLIN IVPB SCH (20:00)
[2017-08-18] MEDS ORDERED: TAZOBACTAM IVPB SCH (20:00)
[2017-08-18] MEDS ORDERED: NS 0.9% IVPB SCH (20:00)
[2017-08-18 21:09] VITALS: BP 58/31
--- NOTE | 2017-08-18 23:28 | CONS ---
CONSULTATION REPORT: DATE OF CONSULT: 08/18/17 REQUESTING PHYSICIAN: Dr. Addison. CONSULTING SERVICE: Infectious Disease. REASON FOR CONSULTATION: Septic shock. IMPRESSION: 1. Admitted with ST elevation myocardial infarction, status post PCI of the right coronary artery, also found to have perirectal and groin abscess, taken for incision and debridement on 08/09/17 and 08/15/17. Cultures are negative from those events. Blood cultures on admission were negative, now with septic shock, white count climbing to 44,000. She is afebrile. Has been on Zosyn for the duration. I agree that candidiasis is a consideration and Dr. Addison has added anidulafungin this morning, may be more anaerobic manifestation, not covered by Zosyn or resistant Staphylococci. 2. End-stage renal disease, on peritoneal dialysis, now report of cloudy peritoneal dialysis fluid or pain with dialysis. 3. Encephalopathy was present on admission. RECOMMENDATIONS: Stop Zosyn, add clindamycin 600 mg every 8 hours, start cefepime, vancomycin along with anidulafungin, recheck blood cultures were sent this morning. HISTORY OF PRESENT ILLNESS: This is a 67-year-old woman admitted on 08/08/17 with buttock pain and concern for perirectal abscess. While that workup was happening, an EKG was done that showed inferior lead MA. She was taken to the cardiac cath tech for PCI for STEMI. She was taken to the operating room on 08/09/[address] Cardenas, then 08/15/[address] Gilmore for incision, debridement, and cultures of those procedures have been negative. She was apparently encephalopathic and then this morning became hypotensive requiring 2 pressors now. Her white count went from 28,000 yesterday to 44,000 today. She has had no diarrhea. She is unable to be moved for a CT scan given her instability. She cannot provide any history, which is obtained instead from discussion with Dr. Addison and review of the medical record. PAST MEDICAL HISTORY: 1. End-stage renal disease, on peritoneal dialysis. 2. Diabetes. 3. Vertigo. 4. Hypertension. 5. Gastroesophageal reflux disease. 6. Right upper extremity AV fistula. ALLERGIES: No known drug allergies. She is allergic to LATEX. MEDICATIONS: 1. Amiodarone. 2. Anidulafungin. 3. Lipitor. 4. Zosyn. 5. Famotidine. 6. Metoprolol. 7. Norepinephrine infusion. 8. Sevelamer. 9. Sodium bicarbonate. 10. Brilinta. 11. Vasopressin. 12. Vancomycin 1250 mg one time this morning. SOCIAL HISTORY: Nonsmoker. Retired nurse. FAMILY HISTORY: Mother had anemia and father had atrial fibrillation. REVIEW OF SYSTEMS: Unobtainable. PHYSICAL EXAMINATION: Vital Signs: Temperature 37, heart rate 85, blood pressure 80/43, and oxygen saturation 100%, FiO2 of 0.60. In general, she is intubated and sedated. HEENT: There is no conjunctival hemorrhage or ET tube present. Neck is supple without mass. Lymph Nodes: There is no cervical, supraclavicular, inguinal, axillary, or epitrochlear lymphadenopathy. Heart: Regular rate and rhythm without murmurs, rubs, or gallops. Lungs: There are coarse breath sounds bilaterally. Abdomen: Soft, nontender, nondistended. There are bowel sounds present. Skin: There are no rashes or splinter hemorrhages. There is a right buttock incision with some serious drainage, induration. No crepitus, fluctuance, or surrounding erythema. There is extensive packing on the wound. LABORATORY DATA: White blood cell count 44, hemoglobin 7, platelets 440, creatinine 5.8, potassium 5.3, troponin 0.9. Please see impressions and recommendations outlined above, which I have discussed with Dr. Addison. Thank you for asking me to see Ms. English in consultation. [id number]/[facility] #: [id number] [facility]ITALJames
--- NOTE | 2017-08-19 04:38 | PRO ---
PROCEDURE NOTE: DATE OF PROCEDURE: 08/18/17 - ROOM #ICU-09 PROCEDURE: Insertion of an arterial A-line. INDICATION: This patient is a 67-year-old female who has been in the intensive care unit with multiple problems including acute myocardial infarction, septic shock, and delirium, who required intubation last night and is currently on 2 vasopressor medications. Because of the need to monitor arterial pressure, an arterial catheter was deemed necessary; and, under ultrasound guidance, a 20- gauge arterial catheter was inserted into the left brachial artery without difficulty. [id number]/[facility] #: [id number] [facility]
[2017-08-19] MEDS ORDERED: Anidulafungin* 100 MG in NS 0.9% 100 ML* 100 ML IVPB SCH (11:00)
--- NOTE | 2017-08-19 15:37 | DS ---
SUMMARY: DATE OF ADMISSION: 08/08/17 DATE : 08/18/17 HISTORY OF PRESENT ILLNESS: This patient was a 67-year-old white female with chronic renal failure (on peritoneal dialysis) who suffered a STEMI on . The patient underwent PCI with revascularization of the right coronary artery and also had debridement of what turned out to be a large perirectal abscess extending into the right buttocks. The patient required multiple debridements beginning in the operating room and subsequently developed progressive septic shock that was refractory to multiiple antibiotics and dual vasopressor therapy (norepinephrine and vasopressor) The prolonged hypotension and vasopressor requirement ultimately led to an extension of the myocardial infarction and worsening cardiac function, culminating in a cardiac arrest on 06/2017 (pulseless V-tach as presenting rhythm) that was refractory to multiple cardioversions and ACLS measures. The patient was pronounced at 7:55 p.m on 08/18/2017. FINAL DIAGNOSES: 1. Acute myocardial infarction. 2. Large, perirectal abscess 3. Circulatory shock 4. Chronic renal failure, requiring peritoneal dialysis. [id number]/[facility] #: [id number] [facility]
== END 2017-08-18 21:40 | disposition expired | DRG 853 ==
LOC: ED 10:50 → ICU 16:05 → SSU 08-11 16:22 → ICU 08-15 20:16
PROVIDERS: ADMIT Internal Medicine Critical Care Medicine; ATTEND Internal Medicine Critical Care Medicine
PROC: 02703DZ Dilation of Coronary Artery, One Artery with Intraluminal Device, Percutaneous Approach (ICD-10-PCS; 2017-08-09)
PROC: 0KBN0ZZ Excision of Right Hip Muscle, Open Approach (ICD-10-PCS; 2017-08-09)
PROC: B41F1ZZ Fluoroscopy of Right Lower Extremity Arteries using Low Osmolar Contrast (ICD-10-PCS; 2017-08-09)
PROC: B2111ZZ Fluoroscopy of Multiple Coronary Arteries using Low Osmolar Contrast (ICD-10-PCS; 2017-08-09)
PROC: 4A023N7 Measurement of Cardiac Sampling and Pressure, Left Heart, Percutaneous Approach (ICD-10-PCS; 2017-08-09)
PROC: 3E1M39Z Irrigation of Peritoneal Cavity using Dialysate, Percutaneous Approach (ICD-10-PCS; 2017-08-10)
PROC: 5A1935Z Respiratory Ventilation, Less than 24 Consecutive Hours (ICD-10-PCS; 2017-08-10)
PROC: 0BH17EZ Insertion of Endotracheal Airway into Trachea, Via Natural or Artificial Opening (ICD-10-PCS; 2017-08-10)
PROC: 3E033XZ Introduction of Vasopressor into Peripheral Vein, Percutaneous Approach (ICD-10-PCS; 2017-08-11)
PROC: 0JB90ZZ Excision of Buttock Subcutaneous Tissue and Fascia, Open Approach (ICD-10-PCS; 2017-08-15)
PROC: 30233N1 Transfusion of Nonautologous Red Blood Cells into Peripheral Vein, Percutaneous Approach (ICD-10-PCS; 2017-08-15)
PROC: 02HV33Z Insertion of Infusion Device into Superior Vena Cava, Percutaneous Approach (ICD-10-PCS; principal; 2017-08-17)
PROC: 03H833Z Insertion of Infusion Device into Left Brachial Artery, Percutaneous Approach (ICD-10-PCS; 2017-08-18)
DX: A41.9 Sepsis, unspecified organism (principal); I21.19 ST elevation (STEMI) myocardial infarction involving other coronary artery of inferior wall; R65.21 Severe sepsis with septic shock; L89.319 Pressure ulcer of right buttock, unspecified stage; G93.40 Encephalopathy, unspecified; I47.2 Ventricular tachycardia; I96 Gangrene, not elsewhere classified; I12.0 Hypertensive chronic kidney disease with stage 5 chronic kidney disease or end stage renal disease; N18.6 End stage renal disease; E87.2 Acidosis; E11.52 Type 2 diabetes mellitus with diabetic peripheral angiopathy with gangrene; L02.31 Cutaneous abscess of buttock; K61.1 Rectal abscess; L03.317 Cellulitis of buttock; E51.9 Thiamine deficiency, unspecified; K76.0 Fatty (change of) liver, not elsewhere classified; E11.65 Type 2 diabetes mellitus with hyperglycemia; E11.36 Type 2 diabetes mellitus with diabetic cataract; K21.9 Gastro-esophageal reflux disease without esophagitis; M17.0 Bilateral primary osteoarthritis of knee; F41.9 Anxiety disorder, unspecified; F32.9 Major depressive disorder, single episode, unspecified; E86.0 Dehydration; E87.6 Hypokalemia; I25.10 Atherosclerotic heart disease of native coronary artery without angina pectoris; D64.9 Anemia, unspecified; E66.9 Obesity, unspecified; Z68.35 Body mass index [BMI] 35.0-35.9, adult; Z91.040 Latex allergy status; Z99.2 Dependence on renal dialysis; Z82.49 Family history of ischemic heart disease and other diseases of the circulatory system; Z83.2 Family history of diseases of the blood and blood-forming organs and certain disorders involving the immune mechanism; R41.0 Disorientation, unspecified; I48.91 Unspecified atrial fibrillation; I46.2 Cardiac arrest due to underlying cardiac condition
CPT/HCPCS: 36415; 71045; 74176; 76937; 80048; 80053; 80061; 80202; 81003; 81015; 82140; 82533; 82550; 82553; 82803; 83036; 83605; 83735; 84100; 84134; 84145; 84484; 85025; 85027; 85060; 85610; 85730; 86140; 86141; 86850; 86900; 86901; 86922; 87040; 87070; 87073; 87077; 87086; 87116; 87205; 87206; 87640; 87641; 90945; 93005; 93306; 94002; 94003; 94760; 99156; 99157; 99285; A9270-GY; C1725; C1751; C1760; C1769; C1876; C1887; C8929; G0257; J0282; J0330; J0348; J0692; J0885; J1327; J1644; J2060; J2250; J2270; J2405; J2543; J2704; J2795; J3010; J3370; J3480; J3490; P9040